=== PATIENT | male | born 1940 | race Caucasian/White ===

== ENCOUNTER 2021-01-29 00:47 | Day surgery (SDC) | payer OTHER, SELFPAY ==
[2021-01-13 15:10] VITALS: BMI 22.8
[2021-01-29] MEDS: LACTATED RINGERS 1,000 ML 150 ML IV CONT (11:04)
[2021-01-29 11:06] VITALS: BP 131/78; PULSE 80; RESP 20; TEMP 36.4; O2SAT 100; BMI 22.8
--- NOTE | 2021-01-29 11:13 | P.PNAN_ITS ---
Anes - Initial Pre Proc Eval Procedure: Operation Date: 01/29/21 11:30 Proposed Procedures p Screening Colonoscopy - Saran Tracey MD Date/Time: 01/29/21 11:13 Surgeon: Saran Tracey MD Pre Op Diagnosis: neoplasm screening Patient Data Age: 80 Gender: M Height: 1.7 m Weight: 66 kg Last Vital Signs Temp 97.5 F L 01/29/21 11:06 Pulse 80 01/29/21 11:06 Resp 20 01/29/21 11:06 BP 131/78 01/29/21 11:06 Pulse Ox 100 01/29/21 11:06 Allergies Allergy/AdvReac Type Severity Reaction Status Date / Time No Known Allergies Allergy Unknown Verified 01/29/21 11:05 Home Medications Medication Instructions Recorded Confirmed Type sennosides 8.6 mg-docusate sodium 1 tab-cap PO BID PRN #60 cap 10/26/20 01/29/21 Rx 50 mg capsule cholecalciferol (vitamin D3) 100 mcg PO BID 01/13/21 01/13/21 History [Vitamin D3] multivit with min-folic acid 2 tablet PO BID 01/13/21 01/13/21 History [Adult One Daily Multivitamin] turmeric 400 mg PO BID 01/13/21 01/13/21 History Patient hx anesthesia problems: none Family hx anesthesia problems: none Results Review: All pre-operative results and documents have been reviewed as part of the pre-operative evaluation. [facility] Past Medical History Medical History Dyslipidemia Hx of malignant neoplasm of prostate Follows with Dr Castro Hx of radiation therapy Prostate cancer Surgical History Surgical History History of right inguinal hernia repair 1948 - x2 Family History Family History Father Family history of coronary artery disease Mother Family history of arthritis Grandparent Family history of coronary artery disease Other Family history of malignant neoplasm of breast in first degree relative Social History Social History Smoking status: Never smoker Second hand tobacco smoke exposure: Yes Alcohol intake: never Substance use: never Substance use type: does not use Living arrangements: alone Gender identity (if verbalized by the patient): Male Sexual Orientation (if Verbalized by the Patient): Straight or Heterosexual Spiritual care concerns: No Anes - Eval Final PreProcedure Day of Procedure 01/29/21 11:13 Patient weight: normal Heart: regular rate and rhythm Lungs: clear to auscultation Airway: Mallampati scale class III (broken front tooth) Neurological: alert and oriented Last oral intake: >/= 8 hours ASA classification: II Emergent: no Anesthetic plan: proceed Anesthesia type and monitoring: general GIVS and standard monitoring Results Review: All pre-operative results and documents have been reviewed as part of the pre-operative evaluation. Informed Consent: The patient's anesthetic plan and its attendant risks and benefits were discussed with the patient/family/POA. Questions were solicited and answers provided to the satisfaction of the patient/family/POA.
--- NOTE | 2021-01-29 12:01 | PM.HPGS ---
History of Present Illness History of Present Illness Consent: Risks, benefits, and alternatives have been discussed and questions answered. Patient agrees to proceed with procedure. Chief complaint: neoplasm screening Narrative: Jerman Bowen is a 80 year old male here for first screening colonoscopy. He has chronic constipation, no new changes. Review of Systems Constitutional: Constitutional: Denies headache(s) and Denies weakness Eyes: Eyes: Denies blurry vision ENT: Reports Normal hearing present, Denies headache(s) and Denies neck pain Cardiovascular: Cardiovascular: Denies chest pain and Denies dyspnea Respiratory: Respiratory: Denies dyspnea Gastrointestinal: Gastrointestinal: Reports no additional gastrointestinal complaints Genitourinary: Genitourinary: Denies dysuria Musculoskeletal: Musculoskeletal: Denies neck pain Integumentary/Breasts: Skin/Breast: Denies dry skin Neurologic: Reports Normal hearing present, Denies headache(s) and Denies weakness Psychiatric: Psychiatric: Denies anxiety Endocrine: Endocrine: Denies change in body appearance Hematologic/Lymphatic: Hematologic/Lymphatic: Denies easy bleeding Allergic/Immunologic: Allergic/Immunologic: Denies urticaria PMFSH Past Medical History Medical History (Updated 01/29/21 @ 12:02 by Saran Tracey MD) Colon cancer screening Dyslipidemia Hx of malignant neoplasm of prostate Follows with Dr Castro Hx of radiation therapy Prostate cancer Surgical History Surgical History History of right inguinal hernia repair 1948 - x2 Family History Family History Father Family history of coronary artery disease Mother Family history of arthritis Grandparent Family history of coronary artery disease Other Family history of malignant neoplasm of breast in first degree relative Social History Social History Smoking status: Never smoker Second hand tobacco smoke exposure: Yes Alcohol intake: never Substance use: never Substance use type: does not use Living arrangements: alone Gender identity (if verbalized by the patient): Male Sexual Orientation (if Verbalized by the Patient): Straight or Heterosexual Spiritual care concerns: No Meds Home Medications and Allergies Home Medications Medication Instructions Recorded Confirmed Type sennosides 8.6 mg-docusate sodium 1 tab-cap PO BID PRN #60 cap 10/26/20 01/29/21 Rx 50 mg capsule cholecalciferol (vitamin D3) 100 mcg PO BID 01/13/21 01/13/21 History [Vitamin D3] multivit with min-folic acid 2 tablet PO BID 01/13/21 01/13/21 History [Adult One Daily Multivitamin] turmeric 400 mg PO BID 01/13/21 01/13/21 History Allergies Allergy/AdvReac Type Severity Reaction Status Date / Time No Known Allergies Allergy Unknown Verified 01/29/21 11:05 Vital Signs Vital Signs - 24 hr 01/29/21 11:06 Temperature 97.5 F L Pulse Rate 80 Respiratory Rate 20 Blood Pressure 131/78 Pulse Oximetry 100 Exam Const: General: comfortable and no acute distress HENMT: General nose exam: Normal nares present Eyes: General: appearance normal, both eyes and all related structures Neck: Neck: no JVD Resp: Auscultation: clear to auscultation bilaterally Cardio: Rate: regular rate Rhythm: regular rhythm GI: Inspection: non-distended GI Palp: Yes Soft to palpation Skin: General skin exam: normal color Neuro: General: gait normal Speech: normal speech Extrem: General: normal to inspection Psych: Mental Status: mental status grossly normal Assessment and Plan Assessment and plan (1) Colon cancer screening: Code(s): Z12.11 - Encounter for screening for malignant neoplasm of colon Status: Acute Assessment and Plan: colonoscopy
[2021-01-29 12:45] VITALS: BP 103/62; PULSE 56; RESP 26; O2SAT 100
[2021-01-29 12:55] VITALS: BP 109/60; PULSE 56; RESP 17; O2SAT 100
[2021-01-29 13:05] VITALS: BP 136/61; PULSE 59; RESP 17; O2SAT 99
== END 2021-01-29 13:27 | disposition home or self-care (01) ==
PROVIDERS: PCP Family Medicine; Visit Provider Internal Medicine Gastroenterology
PROC: 0DJD8ZZ Inspection of Lower Intestinal Tract, Via Natural or Artificial Opening Endoscopic (ICD-10-PCS; CPT 45378; principal; 2021-01-29 11:30)
DX: Z12.11 Encounter for screening for malignant neoplasm of colon (principal); D12.3 Benign neoplasm of transverse colon; K57.30 Diverticulosis of large intestine without perforation or abscess without bleeding; K63.5 Polyp of colon; E78.5 Hyperlipidemia, unspecified; Z85.46 Personal history of malignant neoplasm of prostate; Z92.3 Personal history of irradiation
CPT/HCPCS: 45385; 45381; 88305; J2704; J7120

== ENCOUNTER 2021-10-26 14:25 | Outpatient (CLI) | payer OTHER, SELFPAY ==
[2021-10-26 20:55] LABS: Alanine Aminotransferase 18 U/L (6-50); Albumin Level 4.2 g/dL (3.5-5.1); Alkaline Phosphatase 73 U/L (38-126); Anion Gap 8 mmol/L (8-16); Aspartate Amino Transferase 31 U/L (17-59); Bilirubin,Total 0.6 mg/dL (0.2-1.3); Blood Urea Nitrogen 24 mg/dL (9-20); Calcium 9.5 mg/dL (8.4-10.2); Carbon Dioxide 28 mmol/L (22-30); Chloride 99 mmol/L (98-107); Cholesterol 205 mg/dL (0-200); Estimated Glomerular Filt Rate > 60; Glucose 95 mg/dL (65-110); HDL Direct 57 mg/dL; Potassium 4.5 mmol/L (3.4-5.0); Sodium 135 mmol/L (137-145); Triglycerides 122 mg/dL (<150)
[2021-10-26 21:01] LABS: Basophils Absolute Auto 0.1 K/mm3 (0.0-0.1); Basophils Percent Auto 0.6 % (0.2-1.2); Hemoglobin 13.9 g/dL (14.0-18.0); Immature Granulocyte Absolute 0.02 K/mm3 (0.00-0.031); Immature Granulocyte Percent A 0.2 % (0-0.5); Lymphocytes Absolute Auto 1.65 K/mm3 (0.9-3.2); Lymphocytes Percent Auto 18.4 % (18.3-44.2); Mean Corpuscular HGB Conc 32.3 g/dl (32-36); Mean Corpuscular Hemoglobin 28.8 pg (26-34); Mean Corpuscular Volume 89.2 fl (80-100); Mean Platelet Volume 9.6 fl (7.4-10.4); Monocytes Absolute Auto 0.7 K/mm3 (0.1-0.6); Monocytes Percent Auto 8.2 % (2.6-8.5); Neutrophils Absolute Auto 6.5 K/mm3 (1.3-6.7); Neutrophils Percent Auto 72.6 % (45.5-73.1); Platelet Count Result 270 k/mm3 (150-375); Red Blood Count 4.82 M/mm3 (4.6-6.20)
[2021-10-26 21:15] LABS: Vitamin D 25 Hydroxy 52.9 ng/mL
[2021-10-26 21:28] LABS: Thyroid Stimulating Hormone Reflex 0.923 uIU/mL (0.465-4.68)
[2021-10-26 22:36] LABS: LDL Cholesterol Direct 117 mg/dL
== END 2021-10-26 14:26 | disposition home or self-care (01) ==
LOC: ANHGOSHLAB 14:26
PROVIDERS: PCP Family Medicine; Visit Provider Family Medicine
DX: K59.00 Constipation, unspecified (principal); Z51.81 Encounter for therapeutic drug level monitoring; Z79.899 Other long term (current) drug therapy; E55.9 Vitamin D deficiency, unspecified; E53.8 Deficiency of other specified B group vitamins; Z00.00 Encounter for general adult medical examination without abnormal findings; E78.5 Hyperlipidemia, unspecified
CPT/HCPCS: 36415; 80053; 80061; 82306; 82607; 84443; 85025

== ENCOUNTER 2022-10-27 10:37 | Outpatient (CLI) | payer OTHER, SELFPAY ==
[2022-10-27 11:34] LABS: Uric Acid 3.4 mg/dL (3.5-8.5)
== END 2022-10-27 10:38 | disposition home or self-care (01) ==
PROVIDERS: PCP Family Medicine; Visit Provider Nurse Practitioner Family
DX: M10.9 Gout, unspecified (principal)
CPT/HCPCS: 36415; 84550

== ENCOUNTER 2022-11-03 11:45 | Outpatient (CLI) | payer OTHER, SELFPAY ==
[2022-11-03 17:10] LABS: Alanine Aminotransferase 20 U/L (6-50); Albumin Level 3.9 g/dL (3.5-5.1); Alkaline Phosphatase 61 U/L (38-126); Anion Gap 4 mmol/L (8-16); Aspartate Amino Transferase 29 U/L (17-59); Bilirubin,Total 1.7 mg/dL (0.2-1.3); Blood Urea Nitrogen 25 mg/dL (9-20); Calcium 8.9 mg/dL (8.4-10.2); Carbon Dioxide 29 mmol/L (22-30); Chloride 101 mmol/L (98-107); Cholesterol 177 mg/dL (0-200); Estimated Glomerular Filt Rate > 60; Glucose 106 mg/dL (65-110); HDL Direct 65 mg/dL; Potassium 4.3 mmol/L (3.4-5.0); Sodium 134 mmol/L (137-145); Triglycerides 101 mg/dL (<150); Uric Acid 3.3 mg/dL (3.5-8.5)
[2022-11-03 17:27] LABS: LDL Cholesterol Direct 82 mg/dL
[2022-11-03 17:40] LABS: Basophils Percent Auto 0.3 % (0.2-1.2); Hematocrit 41.6 % (42.0-52.0); Hemoglobin 13.5 g/dL (14.0-18.0); Immature Granulocyte Absolute 0.03 K/mm3 (0.00-0.031); Immature Granulocyte Percent A 0.2 % (0-0.5); Lymphocytes Absolute Auto 1.44 K/mm3 (0.9-3.2); Lymphocytes Percent Auto 11.4 % (18.3-44.2); Mean Corpuscular HGB Conc 32.5 g/dl (32-36); Mean Corpuscular Hemoglobin 29.1 pg (26-34); Mean Corpuscular Volume 89.7 fl (80-100); Mean Platelet Volume 9.9 fl (7.4-10.4); Monocytes Percent Auto 7.6 % (2.6-8.5); Neutrophils Absolute Auto 10.2 K/mm3 (1.3-6.7); Neutrophils Percent Auto 80.5 % (45.5-73.1); Platelet Count Result 245 k/mm3 (150-375); Red Blood Count 4.64 M/mm3 (4.6-6.20); Red Cell Distribution Width 13.7 % (11.5-14.5); White Blood Count 12.7 K/mm3 (4.5-10.0)
[2022-11-06 06:18] LABS: PSA, Free 0.17 ng/mL; PSA, Total 0.6 ng/mL (<=4.0)
[2022-11-07 11:47] LABS: Vitamin D 1,25 (OH)2 Total 28 pg/mL (18-72); Vitamin D2 1,25 (OH)2 <8 pg/mL; Vitamin D3 1,25 (OH)2 28 pg/mL
== END 2022-11-03 11:46 | disposition home or self-care (01) ==
PROVIDERS: PCP Family Medicine; Visit Provider Nurse Practitioner Family
DX: E55.9 Vitamin D deficiency, unspecified (principal); Z12.5 Encounter for screening for malignant neoplasm of prostate; I10 Essential (primary) hypertension; M10.9 Gout, unspecified
CPT/HCPCS: 36415; 80053; 80061; 82652; 84153; 84154; 84550; 85025; G0103

== ENCOUNTER 2023-01-13 10:42 | Outpatient (CLI) | payer OTHER, SELFPAY ==
[2023-01-13 12:03] LABS: Strep Group A RT-PCR NOT DETECTED (Negative)
[2023-01-13 12:15] LABS: Influenza A QL RT-PCR Negative (Negative); Influenza B QL RT-PCR Negative (Negative); RSV RNA, RT-PCR Negative (Negative); SARS-CoV-2 RNA PCR Positive (Negative)
== END 2023-01-13 10:43 | disposition home or self-care (01) ==
PROVIDERS: PCP Family Medicine; Visit Provider Family Medicine
DX: J06.9 Acute upper respiratory infection, unspecified (principal); Z20.822 Contact with and (suspected) exposure to COVID-19
CPT/HCPCS: 87637; 87651

== ENCOUNTER 2023-05-30 09:40 | Outpatient (CLI) | payer OTHER, SELFPAY ==
[2023-05-30 13:51] LABS: Appearance Urine Cloudy (Clear); Bacteria Urine None Seen /hpf; Bilirubin Urine Negative (Negative); Blood Urine Negative (Negative); Color Urine Yellow (Yellow); Glucose Urine UA Negative (Negative); Ketones Urine Negative (Negative); Leukocyte Esterase Ur Negative LEU/UL (Negative); Nitrate Urine Negative (Negative); Protein Urine Negative (Negative); RBC Urine 0-2 /hpf (0-2); Specific Grav Ur 1.014 (1.001-1.035); Squamous Epithelial Cell Urine None Seen /hpf (Few); Urobilinogen Urine 0.2 mg/dL (<2.0); WBC Urine 0-5 /hpf (0-3)
[2023-05-30 14:01] LABS: Add Urine Microscopic? YES
== END 2023-05-30 09:41 | disposition home or self-care (01) ==
PROVIDERS: PCP Family Medicine; Visit Provider Nurse Practitioner
DX: R35.0 Frequency of micturition (principal)
CPT/HCPCS: 81001

== ENCOUNTER 2023-09-04 12:18 | Emergency (ER) | payer OTHER, SELFPAY ==
--- NOTE | ~2023-09-04 | XR_ITS ---
EXAMINATION: XR cervical spine 4-5V DATE: 09/04/2023 13:13 INDICATION: Neck pain. TECHNIQUE: 4 views of cervical spine were obtained. COMPARISON: None. FINDINGS: There is 2 mm anterolisthesis of C6 on C7. Vertebral body heights are normal. There is kehinde rely decreased disc height at C5-C6. There is multilevel facet joint osteoarthritis, severe on the le ft at C4-C5 and severe in lower cervical spine. There is mild central canal stenosis at C5-C6. No pre vertebral soft tissue swelling. IMPRESSION: 1. Severe cervical spondylosis. Reviewed, dictated and finalized at location A.
[2023-09-04 12:20] VITALS: BP 137/60; PULSE 77; RESP 19; TEMP 37.1; O2SAT 100
--- NOTE | 2023-09-04 12:46 | ED.GENADULT ---
HPI - General Adult General Chief complaint: Neck Pain/Injury Stated complaint: NECK PAIN Source: patient, RN notes reviewed and old records reviewed Mode of arrival: ambulatory Limitations: no limitations History of Present Illness HPI narrative: Patient presents today accompanied by his daughter. Patient reports that he is having some generalized neck pain that is only present with range of motion for approximately 2 weeks. Daughter endorses this complaint. Denies any injury or trauma. Denies any fever, chills, sweats. Denies any sore throat. Denies other complaints at this time. Related Data Home Medications Medication Instructions Recorded Confirmed No Home Medications 09/04/23 09/04/23 Allergies Allergy/AdvReac Type Severity Reaction Status Date / Time No Known Allergies Allergy Unknown Verified 09/04/23 12:23 Review of Systems Review of Systems: All systems reviewed & are unremarkable except as noted in HPI and below Constitutional: Constitutional: Reports no additional constitutional complaints ENT: Reports system reviewed and no additional complaints, except as documented Cardiovascular: Cardiovascular: Reports no additional cardiovascular complaints Respiratory: Respiratory: Reports no additional respiratory complaints Gastrointestinal: Gastrointestinal: Reports no additional gastrointestinal complaints PMFSH Past Medical History Medical History 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 Dyslipidemia Gout of big toe Hearing loss Hx of malignant neoplasm of prostate Follows with Dr Castro Hx of radiation therapy Prostate cancer Memory loss Oral thrush Vocal cord dysfunction Surgical History Surgical History History of loop recorder History of right inguinal hernia repair 1948 - x2 Family History Family History Father Family history of coronary artery disease Mother Family history of arthritis Grandparent Family history of coronary artery disease Other Family history of malignant neoplasm of breast in first degree relative Social History Social History Social History: Caffeine-none Smoking status: Never smoker Second hand tobacco smoke exposure: Yes Alcohol intake: never Substance use: never Substance use type: does not use Lack of Transportation: No Lack of Food: Never True Current Housing: I Have Housing Concerned About Future Housing: No Difficulty Paying Gas/Electric Bills: No Difficulty Paying for Meds: No Currently Unemployed: No Education: Bachelor's Degree Difficulty w/ Childcare or Family Care: No Living arrangements: alone Occupation/Education: retired Gender identity (if verbalized by the patient): Male Sexual Orientation (if Verbalized by the Patient): Straight or Heterosexual Spiritual care concerns: No Comments At the time of my signature, I reviewed and agree with the nursing past medical, surgical, social, and family history. There is no relevant family history pertinent to the patient complaint. Exam Const: General: cooperative, no acute distress, alert and awake Orientation/consciousness: oriented to person, oriented to place and oriented to time HENMT: Head: normal to inspection Neck: Neck: no lymphadenopathy, no meningeal signs, no lymphadenopathy noted and other (Significant kyphosis noted) Resp: Effort & Inspection: normal respiratory effort and able to speak in complete sentences Auscultation: clear to auscultation bilaterally, no crackles, no rales, no rhonchi and no wheezes Cardio: Palpation: normal PMI Rate: regular rate Rhythm: regular rhythm Heart sounds: S1 normal heart sound present and S2 normal heart sound present Back/Spine/Pelvis: Cervical Spine: No normal cervical lordosis, cervi
== END 2023-09-04 13:31 | disposition home or self-care (01) ==
PROVIDERS: Emergency Provider Nurse Practitioner Family; PCP Family Medicine
DX: M47.812 Spondylosis without myelopathy or radiculopathy, cervical region (principal); E78.5 Hyperlipidemia, unspecified; M10.9 Gout, unspecified; Z85.46 Personal history of malignant neoplasm of prostate; Z92.3 Personal history of irradiation
CPT/HCPCS: 72050; 99213; G0463

== ENCOUNTER 2023-09-30 13:32 | Emergency (ER) | payer OTHER, SELFPAY ==
[2023-09-30 13:34] VITALS: BP 149/59; PULSE 73; RESP 20; TEMP 36.6; O2SAT 98
--- NOTE | 2023-09-30 14:57 | ED.ABDPAIN ---
HPI - Abdominal Pain General Chief Complaint: Abdominal Pain Stated Complaint: constipation and abd pain Time Seen by Provider: 09/30/23 14:46 Source: patient and family (daughter) Mode of arrival: ambulatory History of Present Illness HPI narrative: Patient presents with concern abdominal pain and constipation. He states his last bowel movement was 3 days ago. His primary care physician Dr. Hills prescribed Senokot which he has been taking but has not produced bowel movement. No prior abdominal surgery. His last colonoscopy was 1-2 years ago. He denies any opiate use. In fact he takes medications at baseline. He does drink morning protein shake. He denies any fever. No nausea or vomiting. He notes that he had lot of sensation in urgency to have a bowel that was producing anyone. However, while in the ED waiting room, he had the sensation to go and went to the bathroom and had a bowel movement. Has a photo as evidence. At the time of examination, currently all symptoms have resolved. He has no abdominal pain and is feeling extremely better. Related Data Home Medications Medication Instructions Recorded Confirmed sennosides 8.6 mg tablet (Senokot) 8.6 mg PO DAILY 09/15/23 09/15/23 Allergies Allergy/AdvReac Type Severity Reaction Status Date / Time No Known Allergies Allergy Unknown Verified 09/30/23 13:33 [facility] Past Medical History Medical History Abnormal gait 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 Dyslipidemia Gout of big toe Hearing loss Hx of malignant neoplasm of prostate Follows with Dr Castro Hx of radiation therapy Prostate cancer Memory loss Oral thrush Vocal cord dysfunction Surgical History Surgical History (Updated 10/01/23 @ 15:33 by Melisa Sosa MD) History of colonoscopy last performed 2021 or 2022 History of loop recorder History of right inguinal hernia repair 1948 - x2 Family History Family History Father Family history of coronary artery disease Mother Family history of arthritis Grandparent Family history of coronary artery disease Other Family history of malignant neoplasm of breast in first degree relative Social History Social History (Updated 10/01/23 @ 15:33 by Melisa Sosa MD) Social History: Caffeine-none Has a daughter Smoking status: Never smoker Second hand tobacco smoke exposure: Yes Alcohol intake: never Substance use: never Substance use type: does not use Lack of Transportation: No Lack of Food: Never True Current Housing: I Have Housing Concerned About Future Housing: No Difficulty Paying Gas/Electric Bills: No Difficulty Paying for Meds: No Currently Unemployed: No Education: Bachelor's Degree Difficulty w/ Childcare or Family Care: No Living arrangements: alone Occupation/Education: retired Gender identity (if verbalized by the patient): Male Sexual Orientation (if Verbalized by the Patient): Straight or Heterosexual Spiritual care concerns: No Exam Narrative: GENERAL: Well-appearing, well-nourished, and in no acute distress. HEAD: Normocephalic, atraumatic. EYES: Non injected, non icteric ENT: Nares clear, no rhinorrhea or epistaxis. NECK: Supple. CHEST: Speaking in full sentences. No respiratory distress. HEART: Regular rate and rhythm. . ABDOMEN: Soft, nondistended. Nontender to palpation throughout. No rigidity or guarding. EXTREMITIES: Normal range of motion. No edema. SKIN: Warm, dry, no rash. NEURO: No focal deficits. Alert and oriented x3. PSYCH: Normal mood and affect. Course Vital Signs Vital signs: Vital Signs Temperature 97.8 F 09/30/23 13:34 Pulse Rate 73 09/30/23 13:34 Respiratory Rate 20 09/30/23 13:34 Blood Pressure 149/59 H 09/30/23 13:34 Pulse Oximetry 98 09/30/23 13:34 Oxygen Delivery Room Air 09/30/23 13:34 [place]
== END 2023-09-30 15:41 | disposition home or self-care (01) ==
PROVIDERS: Emergency Provider Student in an Organized Health Care Education/Training Program; PCP Family Medicine
DX: K59.00 Constipation, unspecified (principal); E78.5 Hyperlipidemia, unspecified; M10.9 Gout, unspecified; Z85.46 Personal history of malignant neoplasm of prostate; Z92.3 Personal history of irradiation
CPT/HCPCS: 99283

== ENCOUNTER 2023-10-09 14:17 | Outpatient (CLI) | payer OTHER, SELFPAY ==
[2023-10-09 18:50] LABS: Basophils Percent Auto 0.7 % (0.2-1.2); Eosinophils Absolute Auto 0.2 K/mm3 (0-0.3); Hemoglobin 12.8 g/dL (14.0-18.0); Immature Granulocyte Absolute 0.02 K/mm3 (0.00-0.031); Immature Granulocyte Percent A 0.3 % (0-0.5); Lymphocytes Absolute Auto 1.14 K/mm3 (0.9-3.2); Lymphocytes Percent Auto 18.7 % (18.3-44.2); Mean Corpuscular Hemoglobin 28.3 pg (26-34); Mean Corpuscular Volume 88.5 fl (80-100); Mean Platelet Volume 9.4 fl (7.4-10.4); Monocytes Absolute Auto 0.6 K/mm3 (0.1-0.6); Neutrophils Absolute Auto 4.2 K/mm3 (1.3-6.7); Neutrophils Percent Auto 68.3 % (45.5-73.1); Platelet Count Result 265 k/mm3 (150-375); Red Blood Count 4.52 M/mm3 (4.6-6.20); Red Cell Distribution Width 13.4 % (11.5-14.5); White Blood Count 6.1 K/mm3 (4.5-10.0)
[2023-10-09 19:22] LABS: Alanine Aminotransferase 13 U/L (6-50); Alkaline Phosphatase 67 U/L (38-126); Anion Gap 7 mmol/L (4-12); Aspartate Amino Transferase 27 U/L (17-59); Bilirubin,Total 0.5 mg/dL (0.2-1.3); Blood Urea Nitrogen 33 mg/dL (9-20); Calcium 9.5 mg/dL (8.4-10.2); Carbon Dioxide 31 mmol/L (22-30); Chloride 98 mmol/L (98-107); Cholesterol 173 mg/dL (0-200); Estimated Glomerular Filt Rate > 60; Glucose 104 mg/dL (65-110); HDL Direct 56 mg/dL; Potassium 4.4 mmol/L (3.4-5.0); Sodium 136 mmol/L (137-145); Triglycerides 98 mg/dL (<150)
[2023-10-09 19:33] LABS: LDL Cholesterol Direct 83 mg/dL
[2023-10-09 19:48] LABS: Hemoglobin A1C 5.9 % (<5.7)
[2023-10-09 19:51] LABS: Prostate Specific Antigen 1.2 ng/mL (< OR = 4.0)
[2023-10-09 21:04] LABS: Thyroid Stimulating Hormone Reflex 0.837 uIU/mL (0.465-4.68)
[2023-10-12 12:18] LABS: Vitamin D 1,25 (OH)2 Total 51 pg/mL (18-72); Vitamin D2 1,25 (OH)2 <8 pg/mL; Vitamin D3 1,25 (OH)2 51 pg/mL
== END 2023-10-09 14:18 | disposition home or self-care (01) ==
PROVIDERS: PCP Family Medicine; Visit Provider Nurse Practitioner Family
DX: Z12.5 Encounter for screening for malignant neoplasm of prostate (principal); B37.0 Candidal stomatitis; E78.5 Hyperlipidemia, unspecified; M10.9 Gout, unspecified; R26.9 Unspecified abnormalities of gait and mobility; R41.3 Other amnesia; E03.9 Hypothyroidism, unspecified; E53.8 Deficiency of other specified B group vitamins; R73.03 Prediabetes; E55.9 Vitamin D deficiency, unspecified; Z85.46 Personal history of malignant neoplasm of prostate
CPT/HCPCS: 36415; 80053; 80061; 82607; 82652; 83036; 84153; 84443; 85025; G0103

== ENCOUNTER 2023-10-13 14:34 | Outpatient (CLI) | payer OTHER, SELFPAY ==
--- NOTE | ~2023-10-13 | MR_ITS ---
EXAMINATION: MR brain/brain stem wo con DATE: 10/13/2023 15:36 INDICATION: Other amnesia. TECHNIQUE: Magnetic resonance imaging (MRI) of the brain and brainstem was performed without intraven ous contrast. COMPARISON: None. FINDINGS: There are scattered areas of nonspecific increased T2-weighted signal intensity in the cere bral white matter, which is within normal limits for the patient's age. There is no intracranial hemo rrhage, acute infarction, or abnormal intracranial mass lesion. The ventricles are normal in size. Th ere is mild mucosal thickening in the paranasal sinuses. The orbits are normal. The mastoid air cells are normal. IMPRESSION: 1. Normal aging brain. Reviewed, dictated and finalized at location A. IMPRESSION: 1. Normal aging brain.
== END 2023-10-13 14:35 ==
LOC: GOSHIMG 14:36
PROVIDERS: PCP Family Medicine; Visit Provider Nurse Practitioner Family
DX: R41.3 Other amnesia (principal)
CPT/HCPCS: 70551

== ENCOUNTER 2023-11-06 11:01 | Outpatient (CLI) | payer OTHER, SELFPAY | END 2023-11-06 11:02 | disposition home or self-care (01) | LOC: ANHAUDASC 11:02 | PROVIDERS: PCP Family Medicine; Visit Provider Otolaryngology | DX: H90.6 Mixed conductive and sensorineural hearing loss, bilateral (principal); H93.11 Tinnitus, right ear; R49.0 Dysphonia | CPT/HCPCS: 92557; 92567 ==

== ENCOUNTER 2024-06-13 14:32 | Inpatient (IN) | payer OTHER, SELFPAY ==
[2024-06-13] VITALS (10 sets, daily range): BP systolic 119–152; BP diastolic 48–89; PULSE 65–77; RESP 15–21; TEMP 36.3–36.8; O2SAT 97–100
--- NOTE | ~2024-06-13 | XR_ITS ---
MODIFIED ESOPHAGRAM HISTORY: Dysphagia. TECHNIQUE: Modified barium esophagram was performed on 06/17/2024. I administered fluoroscopy and perfo rmed the exam with speech pathologist. Patient was seated for lateral fluoroscopic imaging for inges tion of thin liquids, pudding, solids and quantified amounts, followed by thin liquids in uncontrolle d amounts. This was recorded on tape. A single fluoroscopic spot image was also recorded. The DAP for this procedure was 0.517 Gycm2. The amount of fluoroscopy time used during this procedure was 1.0 mi nutes. FINDINGS: Oral stage: Adequate function. Pharyngeal stage: There is reduced laryngeal elevation and adduction. Reduced tongue base retraction and pharyngeal squeeze. There is both vallecular and piriform sinus residue. There was laryngeal pene tration with silent aspiration. Cervical/esophageal stage: Adequate function. IMPRESSION: Pharyngeal dysphagia with laryngeal penetration and silent aspiration. Please correlate with speech pathologist findings and specific feeding recommendations. Reviewed, dictated and finalized at location A. IMPRESSION: Pharyngeal dysphagia with laryngeal penetration and silent aspirati on. Please correlate with speech pathologist findings and specific feeding rec ommendations.
--- NOTE | ~2024-06-13 | CT_ITS ---
EXAMINATION: CT cervical spine wo con DATE: 06/13/2024 15:23 INDICATION: trauma TECHNIQUE: Computed tomography (CT) of the cervical spine was performed without intravenous contrast. Automated exposure control and iterative reconstruction technique were employed. The dose-length pro duct was 131.10 mGy-cm. COMPARISON: None. FINDINGS: Vertebral Body Alignment: Trace multilevel listheses, presumed on a degenerative basis. Craniocervical and atlantoaxial alignment: Mild degenerative change. Alignment intact. Osseous structures/fracture: No evidence of a lytic or blastic process in the visualized spine. No e vidence of acute fracture. Multilevel facet fusions. Cervical soft tissues: The paraspinal soft tissues planes are maintained. Calcified right apical gran uloma. Multiple thyroid hypodensities measuring up to 2.1 cm Degenerative changes: Degenerative disc disease and facet arthropathy. Severe left C5-6 neural forami nal narrowing, secondary to degenerative changes. Moderate central canal narrowing at C5-6, secondary to degenerative changes. No severe central canal narrowing. IMPRESSION: No acute fracture or traumatic malalignment in the cervical spine. Multiple thyroid nodules, consider nonemergent, outpatient thyroid ultrasound for further characterization. Reviewed, dictated and finalized at location K. IMPRESSION: No acute fracture or traumatic malalignment in the cervical spine. Multiple thy roid nodules, consider nonemergent, outpatient thyroid ultrasound for further c haracterization.
--- NOTE | ~2024-06-13 | US_ITS ---
EXAMINATION: US thyroid DATE: 06/16/2024 09:40 INDICATION: Thyroid nodules TECHNIQUE: Multiple ultrasound images of the thyroid were obtained. COMPARISON: None. FINDINGS: The right thyroid lobe measures 4.2 x 2.1 x 3.6 cm. The left thyroid lobe measures 3.8 x 2.2 x 1.8 c m. There are few bilateral thyroid nodules. These include a 2.3, solid heterogeneous hypoechoic wide r than tall nodule with smooth margins and without echogenic foci at the inferior right thyroid (TI-R ADS 4, moderately suspicious , FNA if >=1.5 cm, annual followup is >=1 cm). 2.4 cm solid wider than t all heterogeneously iso to hypoechoic nodule with smooth to ill-defined margins and with coarse shado wing calcifications, also TI-RADS 4. 2.0 cm solid wider than tall hypoechoic nodule in the left thyro id lobe with smooth margins and a couple punctate echogenic foci (TI-RADS 5, highly suspicious , FNA if >=1.0 cm, annual followup is >0.5 cm). 1 cm solid wider than tall isoechoic nodule with smooth mar gins and without echogenic foci. (TI-RADS 3, mildly suspicious , FNA if >=2.5 cm, annual followup is >=1.5 cm). IMPRESSION: 1. Multinodular goiter including a 2.0 cm Ti RADS 5 left thyroid nodule and a 2.4 cm TI-RADS 4 right thyroid nodule. These would meet criteria for ultrasound guided biopsy although need for biopsy alth ough given patient age, need for biopsy may depend on clinical considerations. Reviewed, dictated and finalized at location A. IMPRESSION: 1. Multinodular goiter including a 2.0 cm Ti RADS 5 left thyroid nodule and a 2 .4 cm TI-RADS 4 right thyroid nodule. These would meet criteria for ultrasound guided biopsy although need for biopsy although given patient age, need for bi opsy may depend on clinical considerations.
--- NOTE | ~2024-06-13 | XR_ITS ---
EXAM: XR elbow LT min 3V DATE: 06/13/2024 15:37 HISTORY: trauma . COMPARISON: None available. FINDINGS: Normal mineralization. No fracture or dislocation. No lytic or blastic lesion. Mild degene rative change. Olecranon, medial, and lateral enthesopathy. No erosion or periosteal change. Large el bow joint effusion. IMPRESSION: Large elbow joint effusion, as can be seen with occult radial head fracture. Reviewed, dictated and finalized at location K.
--- NOTE | ~2024-06-13 | XR_ITS ---
HISTORY: trauma COMPARISON: 02/17/2014 TECHNIQUE: 3 views of the right shoulder were formed FINDINGS: No acute fracture. Significant progression in the degenerative disease seen more than 10 years earlier within the acromi oclavicular joint space and coracoclavicular space, with extensive osteophyte formation. The glenohumeral joint space is maintained The visualized portion of the adjacent right lung is clear. The humeral head is well seated within the glenoid fossa. IMPRESSION: Significant degenerative disease, without acute fracture or anterior dislocation. Reviewed, dictated and finalized at location A. IMPRESSION: Significant degenerative disease, without acute fracture or anterior dislocatio n.
--- NOTE | ~2024-06-13 | XR_ITS ---
EXAMINATION: XR chest 2V Exam Date/Time: 06/13/2024 15:26 CDT HISTORY: AMS Comparison: None. RESULT: Lines, tubes, and devices: None. Lungs and pleura: Emphysematous/senescent change. Subsegmental patchy groundglass and reticulonodula r opacities in the right lower lung. Minimal right posterior costophrenic angle blunting. Cardiomediastinal silhouette: Stable. Other: No acute osseous or upper abdominal finding. IMPRESSION: Right lower lung opacities may represent infection/aspiration. Trace left pleural fluid collection ve rsus chronic pleural blunting Reviewed, dictated and finalized at location K. IMPRESSION: Right lower lung opacities may represent infection/aspiration. Trace left pleur al fluid collection versus chronic pleural blunting
--- NOTE | ~2024-06-13 | CT_ITS ---
EXAMINATION: CT brain wo con DATE: 06/13/2024 15:23 INDICATION: trauma . TECHNIQUE: Computed tomography (CT) of the head was performed without intravenous contrast. The mA wa s adjusted according to patient size. Iterative reconstruction technique was employed. The dose-lengt h product was 605.33 mGy-cm. COMPARISON: MRI brain 10/13/2023. FINDINGS: No acute intracranial hemorrhage or extra-axial fluid collection. No hydrocephalus, mass, or herniation. No acute ischemic infarct. Unremarkable dural venous sinus attenuation. No acute osseous abnormality. The aerated spaces are clear. Mild atrophy and chronic white matter change. Atherosclerotic intracranial calcification. IMPRESSION: No acute intracranial process. Reviewed, dictated and finalized at location K.
--- OUTSIDE RECORDS SUMMARY | 2024-06-13 15:02 | XMS_ITS | Referral Summary ---
Author Organization [facility] Address [facility] [place] [address] Care Team Providers Care Artificial Limb Maker Name Role Phone Phyllis Horner MD Primary Care Provider Encounters Date Type Department Care Team Description 06/12/2024 1:45 PM CDT Office Visit [facility] Cardiology [address] [place] [address] Josafat Pagan MD Weight loss (Primary Dx); Mixed hyperlipidemia; Dizziness; Syncope and collapse from Last 3 Months Allergies No known active allergies Medications guaiFENesin ER (MUCINEX) 600 mg 12 hr tablet Take 2 tablets (1,200 mg total) by mouth 2 (two) times a day Active bisacodyl EC (DULCOLAX EC) 5 mg EC tabletIndicatio ns:constipation Take 1 tablet (5 mg total) by mouth daily as needed for constipation Active Active Problems Problem Noted Date Diagnosed Date Weight loss 06/12/2024 Dizziness 09/17/2020 Hyperlipidemia 11/10/2016 Status post placement of implantable loop record er 10/28/2016 Overview (10/28/2016): [employer] Reveal Loop Recorder Dx; Syncope. DOI 03/20/2014. [employer] remote home monitoring Q35-45 days. 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 Gender Identity Not on file Sexual Orientation Not on file Last Filed Vital Signs Vital Sign Reading Time Taken Comments Blood Pressure 90/46 06/12/2024 1:36 PM CDT Pulse 76 06/12/2024 1:36 PM CDT Temperature - - Respiratory Rate - - Oxygen Saturation 94% 06/12/2024 1:36 PM CDT Inhaled Oxygen Concentration - - Weight 49 kg (108 lb) 06/12/2024 1:36 PM CDT Height 170.2 cm (5' 7 ) 06/12/2024 1:36 PM CDT Body Mass Index 16.92 06/12/2024 1:36 PM CDT Plan of Treatment Not on file Insurance [employer] PPO [employer] [facility] Care Teams Artificial Limb Maker Relationship Specialty Start Date End Date Phyllis Horner MD PCP - General Family Practice 08/11/20
--- OUTSIDE RECORDS SUMMARY | 2024-06-13 15:02 | XMS_ITS | Encounter Summary ---
Author Organization [facility] Address [address] [facility] [facility] [address] [place] [id number] Care Team Providers Care Grease Man Name Role Phone Yessica Saenz MD Primary Care Provider [phone] Rajinder Nicholson MD Primary Care Provider [phone]- [phone] Nova Brumfield MD Primary Care Provider Phyllis Horner MD Primary Care Provider Encounter Details Date Type Department Care Team (Late st Contact Info) Description 07/04/2016 Orders Only [facility] ProviderCarmela MD [address] [place] [id number] Social History Tobacco Use Types Packs/Day Years Used Date Smoking Tobacco: Never Alcohol Use Standard Drinks/Week Comments No 0 (1 standard drink = 0.6 oz pur e alcohol) Sex and Gender Information Value Date Recorded Sex Assigned at Not on file 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 Historical Provider [facility] JENNIFER HOLMAN Final Result documented in this encounter Visit Diagnoses Not on filedocumented in this encounter Care Teams Grease Man Relationship Specialty Start Date End Date Yessica Saenz MD PCP - General 06/10/16 11/09/16 Rajinder Nicholson MD [address] [place] [address] PCP - General Family Practice 11/10/16 12/24/18 Nova Brumfield MD [address] [place] [address] PCP - General Family Medicine 12/25/18 08/10/20 Phyllis Horner MD [address] [place] [address] PCP - General Family Practice 08/11/20 documented as of this encounter
--- OUTSIDE RECORDS SUMMARY | 2024-06-13 15:02 | XMS_ITS | Encounter Summary ---
Author Organization [facility] Healthcare Address [address] [place] [address] Care Team Providers Care Supervisor [employer] Name Role Phone Phyllis Horner MD Primary Care Provider Reason for Referral * Cardiology (Routine) - Pending Review Specialty Diagnoses / Procedures Referred By Contac t Referred To Contact Diagnoses Weight loss Dizziness Syncope and collapse Procedures Transthoracic Echo (TTE) Complete W Doppler/CF Josafat Pagan MD [address] [place] [address] Phone: tel: fax: [facility] Cardiology [address] [place] [address] Phone: tel: fax: Referral ID Status Reason Start Date Expiration Date V isits Requested Visits Authorized [id number] Pending Review 06/12/2024 07/12/2025 1 1 Reason for Visit * Reason Comments Syncope Dizziness Hyperlipidemia Annual f/u Encounter Details Date Type Department Care Team (Late st Contact Info) Description 06/12/2024 1:45 PM CDT Office Visit 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 male who is an established patient of Dr. Pagan here for annual follow-up of his syncope and implanted loop recorder. History of Present Illness: Jerman oBwen is a 76 y.o. male with male who I saw for syncope. He was climbing a ladder and passed out. He did fall and break 6 ribs. Cardiac workup was not performed. In 2013 he was walking hisdog and also blacked out. He fell on his right shoulder and shoulder. He stated that eachtime he was unconscious for about 4-5 seconds. There was no prodrome and he immediately awoke and was alert. Extensive cardiac workup has been unremarkable to this point. Echocardiogram was unremarkable stop.Stress test was normal. Carotids were normal. Implantable loop recorder was placed and he has not had any significant arrhythmia. 11/10/2016: He returns today for follow-up. He is having some issues with sleeping and has some fatigue. His blood pressure did spike coronary at company in the house but otherwise from a cardiac perspective is feeling good and denies any syncope spells. No paroxysmal nocturnal dyspnea, chest pain,shortness of breath, palpitations, edema. 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 He has no specific complaints or concerns. He denies any further episodes of syncope. There have been no significant changes in his health overthe last year. He has not marked any symptoms on his ILR. Follow-up note 09/17/2020: He denies any chest pain, shortness breath, syncope, paroxysmal nocturnal dyspnea, orthopnea, edema or palpitations. He has rare dizzy episodes which did not last very longand have not resulted in any syncope Follow-up note 06/12/2024: He has had some dizziness and passing out spells. He does not eat or drink very much at all according to family member who is with him today. She states that he simply willnot eat. He has no chest pain, shortness breath, paroxysmal nocturnal dyspnea, orthopnea, edema or p alpitations. Records that I personally reviewed on the day of this visit include: (the interpretation is outlined in the chief complaint above) 11/10/[address] Pagan and 07/31/2017 device check report I have also reviewed: allergies, current medications, past family history, past medical history, past social history, past surgical history and problem list Review of Systems Constitutional: Positive for weight loss. Negative for diaphoresis, fever, malaise/fatigue and weight gain. HENT: Negative for hearing loss. Eyes: Negative for visual disturbance. Cardiovascular: Negative for chest pain, claudication, dyspnea on exertion, leg swelling, orthopnea, palpitations, paroxysmal nocturnal dyspnea and syncope. Respiratory: Negative for cough, hemoptysis, shortness of breath, snoring and wheezing. Endocrine: Negative for polyphagia. Hematologic/Lymphatic: Does not bruise/bleed easily. Skin: Negative for poor wound healing and rash. No easy bruising. No bleeding problems. Musculoskeletal: Negative for joint pain and myalgias. Gastrointestinal: Negative for heartburn, nausea and vomiting. No reflux Genitourinary: Negative for hematuria. Neurological: Positive for dizziness. Negative for headaches and light-headedness. Psychiatric/Behavioral: Negative for depression. The patient is not nervous/anxious. Vital Signs: BP 90/46 (BP Location: Left arm, Patient Position: Sitting) Pulse 76 Ht 170.2 cm (5' 7 ) Wt 49 kg (108 lb) SpO2 94% BMI 16.92 kg/m?? Physical Exam Vitals reviewed. Constitutional: General: He is not in acute distress. Appearance: He is well-developed. Comments: Emaciated and cachectic appearing HENT: Head: Normocephalic and atraumatic. Nose: Nose normal. Eyes: General: No scleral icterus. Conjunctiva/sclera: Conjunctivae normal. Neck: Vascular: No carotid bruit or JVD. Trachea: No tracheal deviation. Cardiovascular: Rate and Rhythm: Normal rate and regular rhythm. Pulses: Radial pulses are 2+ on the right side and 2+ on the left side. Dorsalis pedis pulses are 1+ on the right side and 1+ on the left side. Heart sounds: Normal heart sounds. No murmur heard. Pulmonary: Effort: Pulmonary effort is normal. No respiratory distress. Breath sounds: Normal breath sounds. Abdominal: General: Bowel sounds are normal. Palpations: Abdomen is soft. Tenderness: There is no abdominal tenderness. Musculoskeletal: General: Normal range of motion. Cervical back: Normal range of motion. Skin: General: Skin is warm and dry. Neurological: Mental Status: He is alert and oriented to person, place, and time. Psychiatric: Mood and Affect: Mood normal. No Known Allergies Current Outpatient Medications: bisacodyl EC (DULCOLAX EC) 5 mg EC tablet, Take 1 tablet (5 mg total) by mouth daily as needed for constipation, Disp: , Rfl: guaiFENesin ER (MUCINEX) 600 mg 12 hr tablet, Take 2 tablets (1,200 mg total) by mouth 2 (two) times a day, Disp: , Rfl: Assessment: Diagnoses and all orders for this visit: Syncope, unspecified syncope type No recurrence Hyperlipidemia, unspecified hyperlipidemia type Dizziness Mildly symptomatic Status post placement of implantable loop recorder History of malignant neoplasm of prostate Status post XRT Weight loss Significant and worrisome Plan/Recommendations: 2D echocardiogram with Doppler because of his recurrent syncope and dizziness. Patient has lost almost 30 lb since last time that I have seen him. He is not eating and not drinking. This is likely the cause of his dizziness and falls. He appears ill, emaciated/cachectic. Encouraged caloric intake including drinking things such as boost, ensure. He should follow-up with his primary care provider for further workup for weight loss. He is stable. No changes to his medical regimen. From a cardiac perspective I think that he is doing okay but obviously worried about other noncardiac issues which he should follow-up with Dr. Horner. Follow-up in 6 months or sooner as clinically indicated Josafat Pagan MD, [facility] This note is dictated and transcribed using [employer] Direct Software. Baker Helper variancesmay occur. Despite proofreading, typographical errors may occur. documented in this encounter Plan of Treatment Scheduled Orders Name Type Priority Associated Diagnoses Order Schedule Transthoracic Echo (TTE) Complete W Doppler/CF Echocardiography Routine Weight loss Dizziness Syncope and collapse Expected: 06/12/2024, Expires: 06/12/2025 documented as of this encounter Visit Diagnoses Diagnosis Weight loss- Primary Loss of weight Mixed hyperlipidemia Dizziness Dizziness and giddiness Syncope and collapse documented in this encounter Historical Medications * This list may reflect changes made after this encounter. bisacodyl EC (DULCOLAX EC) 5 mg EC tabletIndication s:constipation Take 1 tablet (5 mg total) by mouth daily as needed for constipation guaiFENesin ER (MUCINEX) 600 mg 12 hr tablet Take 2 tablets (1,200 mg total) by mouth 2 (two) times a day added in this encounter Care Teams Supervisor [employer] Relationship Specialty Start Date End Date Phyllis Horner MD PCP - General Family Practice 08/11/20 documented as of this encounter
--- OUTSIDE RECORDS SUMMARY | 2024-06-13 15:02 | XMS_ITS | Continuity of Care Document ---
Author Organization [facility] Address [address] [place] [address] Phone Care Team Providers Care Field Artillery Targeting Technician Name Role Phone Alber Gunter MD Unavailable Unavailable Advance Directives Directive Yes / No Effective Date File Name No Information Encounters Encounter Description Practice Location Reason(s) For Visit Diagnoses Date Provider Providers Copied on Encounter [facility], [address], [place], [place], [id number], [place] tel:[phone] [facility] No Information [address] [facility] [address], [place], [place], [id number], [place]. tel:[phone] Family History Family Member Type Diagnosis Age At Onset No Information Payers Payer name Insurance type Covered democrat ID Authoriza tion(s) No Information Social History Type Description Quantity Date Captured Comments Sex Male Smoking Status No Information Chief Complaint And Reason For Visit No Information Reason For Referral Reason For Referral No Information History Of Present Illness Encounter Date Complaint History Of Prese nt Illness No Information Functional Status Date Functional Assessmen t No Information Instructions Date Instruction Additional Infor mation No Information Assessments Type Assessment Date No Information Patient Care Teams Name Effective Dates (start - stop) Status Members No Information
--- OUTSIDE RECORDS SUMMARY | 2024-06-13 15:02 | XMS_ITS | Clinical Summary ---
Author Organization [facility] Address [facility] [place] [address] Care Team Providers Care Fuel Efficient Aircraft Designer Name Role Phone Phyllis Horner MD Primary Care Provider Allergies No known active allergies Medications guaiFENesin [...] 2014 Overview (06/16/2016): History of prostate cancer Encounters Date Type Department Care Team Description 06/12/2024 1:45 PM CDT Office Visit [facility] Cardiology [address] [place] [address] Josafat Pagan MD Weight loss (Primary Dx); Mixed hyperlipidemia; Dizziness; Syncope and collapse from Last 3 Months Medical History Medical History Date Comments Malignant neoplasm of prostate (HCC) Cancer, prostate; Comments: JBP 03/14/2014 - Hx Other Medical Psoriasis, brok en ribs and shoulder separation; Comments: MAF 03/14/2014 - Family History Medical History Relation Name Comments Heart attack Father 2 Myocardial infa rction; Cause of : Myocardial infarction Relation Name Status Comments Father 1 Father 2 Social History Tobacco Use Types Packs/Day Years Used Date Smoking Tobacco: Never Smokeless Tobacco: Never Tobacco Cessation:Counseling Given: Yes Alcohol Use Standard Drinks/Week Comments No 0 (1 standard drink = 0.6 oz pur e alcohol) Sex and Gender Information Value Date Recorded Sex Assigned at Not on file 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 Gender Identity Not on file Sexual Orientation Not on file Obstetrics History Last Filed Vital Signs Vital Sign Reading [...] 06/12/2024 1:36 PM CDT Plan of Treatment Health Maintenance Due Date Last Done Comments Depression Screening 1940 Fall Risk Assessment 1940 Hepatitis B Screening 1958 Pneumococcal vaccine 65+ (1 of 1 - PCV) 1990 Zoster Vaccine (1 of 2) 1990 Well Visit 65+ 2005 Influenza Vaccine (Season Ended) 2024 DTaP/Tdap/Td Vaccine (2 - Td or Tdap) 10/11/202803/2018 Insurance [employer] PPO Care Teams Fuel Efficient Aircraft Designer Relationship Specialty Start Date End Date Phyllis Horner MD PCP - General Family Practice 08/11/20
--- OUTSIDE RECORDS SUMMARY | 2024-06-13 15:02 | XMS_ITS | Encounter Summary ---
Author Organization [facility] Address [address] [facility] [address] [place] [address] Care Team Providers Care Safety And Health Consultant Name Role Phone Yessica Saenz MD Primary Care Provider [phone]- [phone] Yessica Saenz MD Primary Care Provider [phone]- [phone] Rajinder Nicholson MD Primary Care Provider +1- [phone] Nova Brumfield MD Primary Care Provider Phyllis Horner MD Primary Care Provider Encounter Details Date Type Department Care Team (Late st Contact Info) Description 02/25/2016 Orders Only [facility] ProviderCarmela MD [address] [place] [address] Social History Tobacco Use Types Packs/Day Years Used Date Smoking Tobacco: Never Alcohol Use Standard Drinks/Week Comments No 0 (1 standard drink = 0.6 oz pur e alcohol) Sex and Gender Information Value Date Recorded Sex Assigned at Not on file 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 Historical Provider [facility] JENNIFER HOLMAN Final Result documented in this encounter Visit Diagnoses Not on filedocumented in this encounter Care Teams Safety And Health Consultant Relationship Specialty Start Date End Date Yessica Saenz MD PCP - General 06/10/16 11/09/16 Yessica Saenz MD PCP - General 09/05/14 06/09/16 Rajinder Nicholson MD [address] [place] [address] PCP - General Family Practice 11/10/16 12/24/18 Nova Brumfield MD [address] [place] [address] PCP - General Family Medicine 12/25/18 08/10/20 Phyllis Horner MD [address] [place] [address] PCP - General Family Practice 08/11/20 documented as of this encounter
--- OUTSIDE RECORDS SUMMARY | 2024-06-13 15:02 | XMS_ITS | Encounter Summary ---
Author Organization [facility] Address [address] [facility] [address] [place] [address] Care Team Providers Care Oil Tanker Captain Name Role Phone Yessica Saenz MD Primary Care Provider +1- [phone] Yessica Saenz MD Primary Care Provider +1- [phone] Rajinder Nicholson MD Primary Care Provider +1- [phone] Nova Brumfield MD Primary Care Provider Phyllis Horner MD Primary Care Provider Encounter Details Date Type Department Care Team (Late st Contact Info) Description 04/07/2016 Orders Only [facility] ProviderCarmela MD [address] [place] [address] Social History Tobacco Use Types Packs/Day Years Used Date Smoking Tobacco: Never Alcohol Use Standard Drinks/Week Comments No 0 (1 standard drink = 0.6 oz pur e alcohol) Sex and Gender Information Value Date Recorded Sex Assigned at Not on file 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 Historical Provider [facility] JENNIFER HOLMAN Final Result documented in this encounter Visit Diagnoses Not on filedocumented in this encounter Care Teams Oil Tanker Captain Relationship Specialty Start Date End Date Yessica Saenz MD PCP - General 06/10/16 11/09/16 Yessica Saenz MD PCP - General 09/05/14 06/09/16 Rajinder Nicholson MD [address] [place] [address] PCP - General Family Practice 11/10/16 12/24/18 Nova Brumfield MD [address] [place] [address] PCP - General Family Medicine 12/25/18 08/10/20 Phyllis Horner MD [address] [place] [address] PCP - General Family Practice 08/11/20 documented as of this encounter
--- OUTSIDE RECORDS SUMMARY | 2024-06-13 15:02 | XMS_ITS | Encounter Summary ---
Author Organization [facility] Address [address] [facility] [address] [place] [address] Care Team Providers Care Salesforce Business Analyst Name Role Phone Yessica Saenz MD Primary Care Provider +1- [phone] Yessica Saenz MD Primary Care Provider +1- [phone] Rajinder Nicholson MD Primary Care Provider +1- [phone] Nova Brumfield MD Primary Care Provider Phyllis Horner MD Primary Care Provider Encounter Details Date Type Department Care Team (Late st Contact Info) Description 05/23/2016 Orders Only [facility] ProviderCarmela MD [address] [place] [address] Social History Tobacco Use Types Packs/Day Years Used Date Smoking Tobacco: Never Alcohol Use Standard Drinks/Week Comments No 0 (1 standard drink = 0.6 oz pur e alcohol) Sex and Gender Information Value Date Recorded Sex Assigned at Not on file Legal Sex Male 7:56 PM DOCUMENTATION LEAD Gender Identity Not on file Sexual Orientation Not on file documented as of this encounter Plan of Treatment Not on file documented as of this encounter Procedures Procedure Name Priority Date/Time Associated Diagnosis Comments CARDIOLOGY REPORT 05/23/2016 documented in this encounter Results * CARDIOLOGY REPORT (05/23/2016) Anatomical Region Laterality Modality Other Narrative 05/23/2016 Ordered by an unspecified provider. Historical Provider [facility] JENNIFER HOLMAN Final Result documented in this encounter Visit Diagnoses Not on filedocumented in this encounter Care Teams Salesforce Business Analyst Relationship Specialty Start Date End Date Yessica Saenz MD PCP - General 06/10/16 11/09/16 Yessica Saenz MD PCP - General 09/05/14 06/09/16 Rajinder Nicholson MD [address] [place] [address] PCP - General Family Practice 11/10/16 12/24/18 Nova Brumfield MD [address] [place] [address] PCP - General Family Medicine 12/25/18 08/10/20 Phyllis Horner MD [address] [place] [address] PCP - General Family Practice 08/11/20 documented as of this encounter
--- NOTE | 2024-06-13 15:54 | ED_ITS ---
HPI - General Adult General Chief complaint: Fall Stated complaint: fall Time Seen by Provider: 06/13/24 14:35 History of Present Illness HPI narrative: 83-year-old male presents emergency department for evaluation for increased generalized weakness, increased falls and weight loss. Family states the patient does live at home on his own and patient had initially been reluctant to have home health intervene in his care. Family states the patient has had increased falls over the last few weeks. Patient does have a skin tear to his left elbow and an abrasion to his forehead. Patient does have a chronic issue with swallowing for which he is going to have follow-up with ENT. Family states the patient also does have intermittent issues with coughing and vomiting while eating. Patient denies any complaints at this time. Patient denies any chest pain or shortness of breath. Patient denies any pain in the left elbow. Related Data Allergies Allergy/AdvReac Type Severity Reaction Status Date / Time No Known Allergies Allergy Unknown Verified 04/12/24 11:23 Review of Systems 2 Review of Systems: All systems reviewed & are unremarkable except as noted in HPI and below PMFSH Past Medical History Medical History Abnormal gait Vocal cord dysfunction Hearing loss Oral thrush Memory loss 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 Gout of big toe Dyslipidemia Hx of radiation therapy Prostate cancer Hx of malignant neoplasm of prostate Follows with Dr Castro Surgical History Surgical History History of colonoscopy last performed 2021 or 2022 History of loop recorder History of right inguinal hernia repair 1948 - x2 Family History Family History Father Family history of coronary artery disease Mother Family history of arthritis Grandparent Family history of coronary artery disease Other Family history of malignant neoplasm of breast in first degree relative Social History Social History Social History: Caffeine-none Has a daughter Smoking status: Never smoker Second hand tobacco smoke exposure: Yes Alcohol intake: never Substance use: never Substance use type: does not use Lack of Transportation: No Lack of Food: Never True Current Housing: I Have Housing Concerned About Future Housing: No Difficulty Paying Gas/Electric Bills: No Difficulty Paying for Meds: No Currently Unemployed: No Education: Bachelor's Degree Difficulty w/ Childcare or Family Care: No Living arrangements: alone Occupation/Education: retired Gender identity (if verbalized by the patient): Male Sexual Orientation (if Verbalized by the Patient): Straight or Heterosexual Spiritual care concerns: No Exam 2 Narrative: APPEARANCE: Well appearing, no pain, no distress, well-nourished. HEAD: normocephalic, abrasion to left forehead. EYES: PERRLA/EOMI, conjunctivae clear. NOSE: Normal no drainage EARS:TMS clear with good light reflex. THROAT: Pharynx clear, no exudate. NECK: Supple. No adenopathy, no masses. RESPIRATORY: Airway patent, respirations nonlabored. Clear to auscultation bilaterally, no rales, rhonchi, wheezing. CARDIOVASCULAR: Regular rate and rhythm without murmurs rubs or gallops. ABDOMINAL: Soft, nontender, nondistended, normal bowel sounds MUSCULOSKELETAL: Normal range of left elbow with no tenderness to palpation NEURO: Alert. Cranial nerves II through XII intact. Good gait. Good coordination SKIN: Abrasion to left elbow Course Vital Signs Vital signs: Vital Signs Temperature 98.2 F 06/13/24 14:32 Pulse Rate 74 06/13/24 14:32 Respiratory Rate 15 06/13/24 14:32 Blood Pressure 152/68 H 06/13/24 14:32 Pulse Oximetry 97 06/13/24 14:32 Oxygen Delivery Room Air 06/13/24 14:32 Temperature 98.2 F 06/13/24 14:32 Pulse Rate 67 06/13/24 17:16 Respiratory Rate 17 06/13/24 17:16 Blood Pressure 142/68 H 06/13/24 17:16 Pulse Oximetry 99 06/13/24 17:16 Oxygen Delivery Room Air 06/13/24 14:32 Medical Decision Making MDM Narrative Medical decision making narrative: An 83-year-old male present to the emergency department for evaluation for increased generalized weakness and decreased p.o. intake with excessive weight loss in the last few months. Patient is currently afebrile with no leukocytosis and hemoglobin of 12.6. Patient's INR is 1.1. Patient has no significant abnormalities on his CMP shoulder x-ray was positive for degenerative changes but no acute fracture dislocation. Patient's cervical spine and head CT were negative for acute injury. Chest x-ray does show evidence of aspiration pneumonia and patient does have issues with swallowing and does have episodes of possible aspiration. Family states that they have tried to do outpatient physical therapy and home health but patient had been opposed. They feel the patient has worsened over the last few weeks and is unable to take care for himself at this time. Family is not opposed to a physical therapy occupational therapy evaluation and rehab placement as needed. Family does not want the patient to go into a detention facility full-time. Differential Diagnosis Differential Diagnosis: Anemia, dehydration, delirium, dementia, failure to thrive, shoulder fracture, elbow fracture, pneumonia, aspiration pneumonia, subdural hematoma, subarachnoid hemorrhage, cervical spine fracture Vital Signs Vital Signs: Vital Signs Temperature 98.2 F 06/13/24 14:32 Pulse Rate 74 06/13/24 14:32 Respiratory Rate 15 06/13/24 14:32 Blood Pressure 152/68 H 06/13/24 14:32 Pulse Oximetry 97 06/13/24 14:32 Oxygen Delivery Room Air 06/13/24 14:32 Temperature 98.2 F 06/13/24 14:32 Pulse Rate 67 06/13/24 17:16 Respiratory Rate 17 06/13/24 17:16 Blood Pressure 142/68 H 06/13/24 17:16 Pulse Oximetry 99 06/13/24 17:16 Oxygen Delivery Room Air 06/13/24 14:32 Lab Data 06/13/24 15:50 06/13/24 15:50 Labs: Lab Results 06/13/24 Range/Units 15:50 WBC 6.4 (4.5-10.0) K/mm3 RBC 4.56 L (4.6-6.20) M/mm3 Hgb 12.6 L (14.0-18.0) g/dL Hct 39.7 L (42.0-52.0) % MCV 87.1 (80-100) fl MCH 27.6 (26-34) pg MCHC 31.7 L (32-36) g/dl RDW 13.6 (11.5-14.5) % Plt Count 287 (150-375) k/mm3 MPV 8.8 (7.4-10.4) fl Immature Gran % (Auto) 0.3 (0-0.5) % Neut % (Auto) 76.4 H (45.5-73.1) % Lymph % (Auto) 15.4 L (18.3-44.2) % [place] % (Auto) 7.6 (2.6-8.5) % Eos % (Auto) 0.0 (0-4.4) % Baso % (Auto) 0.3 (0.2-1.2) % Lymph # (Auto) 0.99 (0.9-3.2) K/mm3 [place] # (Auto) 0.5 (0.1-0.6) K/mm3 Eos # (Auto) 0.0 (0-0.3) K/mm3 Baso # (Auto) 0.0 (0.0-0.1) K/mm3 Abs Immat Gran (auto) 0.02 (0.00-0.031) K/mm3 Absolute Neuts (auto) 4.9 (1.3-6.7) K/mm3 Absolute Nucleated RBC 0.000 (0.0-0.012) K/mm3 Nucleated RBC % 0.0 (0.0-0.2) % PT 14.8 H (11.1-14.7) Seconds INR 1.1 APTT 25.5 (22.3-36.8) Seconds Sodium 138 (137-145) mmol/L Potassium 4.3 (3.4-5.0) mmol/L Chloride 103 (98-107) mmol/L Carbon Dioxide 29 (22-30) mmol/L Anion Gap 6 (4-12) mmol/L BUN 27 H (9-20) mg/dL Creatinine 1.06 (0.7-1.3) mg/dL Estim Creat Clear Calc 32 ml/min Estimated GFR > 60 (59 - ) Glucose 108 (65-110) mg/dL Calcium 9.2 (8.4-10.2) mg/dL Total Bilirubin 0.6 (0.2-1.3) mg/dL AST 24 (17-59) U/L ALT 14 (6-50) U/L Alkaline Phosphatase 78 (38-126) U/L Total Protein 8.0 (6.3-8.2) g/dL Albumin 3.8 (3.5-5.1) g/dL Imaging Data Radiologist's impression: Impressions Head CT 06/13/24 15:23 IMPRESSION: No acute intracranial process. Cervical Spine CT 06/13/24 15:27 IMPRESSION: No acute fracture or traumatic malalignment in the cervical spine. Multiple thyroid nodules, consider nonemergent, outpatient thyroid ultrasound for further characterization. Chest X-Ray 06/13/24 15:39 IMPRESSION: Right lower lung opacities may represent infection/aspiration. Trace left pleural fluid collection versus chronic pleural blunting Elbow X-Ray 06/13/24 15:40 IMPRESSION: Large elbow joint effusion, as can be seen with occult radial head fracture. Shoulder X-Ray 06/13/24 15:40 IMPRESSION: Significant degenerative disease, without acute fracture or anterior dislocation. Discharge Plan Discharge Clinical Impression: Adult failure to thrive, Abnormal weight loss, Aspiration pneumonia Patient Disposition: Still a Patient Condition: Stable
[2024-06-13 15:56] LABS: Basophils Percent Auto 0.3 % (0.2-1.2); Hematocrit 39.7 % (42.0-52.0); Hemoglobin 12.6 g/dL (14.0-18.0); Immature Granulocyte Absolute 0.02 K/mm3 (0.00-0.031); Immature Granulocyte Percent A 0.3 % (0-0.5); Lymphocytes Absolute Auto 0.99 K/mm3 (0.9-3.2); Lymphocytes Percent Auto 15.4 % (18.3-44.2); Mean Corpuscular HGB Conc 31.7 g/dl (32-36); Mean Corpuscular Hemoglobin 27.6 pg (26-34); Mean Corpuscular Volume 87.1 fl (80-100); Mean Platelet Volume 8.8 fl (7.4-10.4); Monocytes Absolute Auto 0.5 K/mm3 (0.1-0.6); Monocytes Percent Auto 7.6 % (2.6-8.5); Neutrophils Absolute Auto 4.9 K/mm3 (1.3-6.7); Neutrophils Percent Auto 76.4 % (45.5-73.1); Platelet Count Result 287 k/mm3 (150-375); Red Blood Count 4.56 M/mm3 (4.6-6.20); Red Cell Distribution Width 13.6 % (11.5-14.5); White Blood Count 6.4 K/mm3 (4.5-10.0)
[2024-06-13 16:10] LABS: Alanine Aminotransferase 14 U/L (6-50); Albumin Level 3.8 g/dL (3.5-5.1); Alkaline Phosphatase 78 U/L (38-126); Anion Gap 6 mmol/L (4-12); Aspartate Amino Transferase 24 U/L (17-59); Bilirubin,Total 0.6 mg/dL (0.2-1.3); Blood Urea Nitrogen 27 mg/dL (9-20); Calcium 9.2 mg/dL (8.4-10.2); Carbon Dioxide 29 mmol/L (22-30); Chloride 103 mmol/L (98-107); Estimated CRCL calculation 32 ml/min; Estimated Glomerular Filt Rate > 60; Glucose 108 mg/dL (65-110); INR 1.1; Potassium 4.3 mmol/L (3.4-5.0); Prothrombin Time 14.8 Seconds (11.1-14.7); Sodium 138 mmol/L (137-145)
[2024-06-13 16:11] LABS: Partial Thromboplastin Time 25.5 Seconds (22.3-36.8)
[2024-06-13] MEDS: PIPERACILLIN/TAZ 4.5G/NS 100ML 4.5 GM/100 ML BAG IVPB (17:24)
--- NOTE | 2024-06-13 17:53 | PCCCNOTE ---
Called to the ED to speak with pt's daughters regarding SNF vs home health following discharge. I printed them the [facility] list for each and explained to them that PT/OT will evaluate pt and decide what they recommend. They are also considering 24 hour care because pt is not eating well and having falls. I did explain that this is out of pocket cost. They verbalized understanding. I told them a wound care physician would see them while he is admitted to the floor to discuss these options in more detail.
--- NOTE | 2024-06-13 18:53 | ADMGEN ---
This patient, Jerman Bowen, was admitted to [facility] Surg Room 307-02. Patient/family oriented to hospital policies and general routines including ID bracelet, bed and alarms, visiting hours, pain management, procedures, bathroom and other care routines, personal items, smoking policy, room service/diet, and visiting hours. Information on how to activate the Rapid Response Team has been discussed. Patient/Family are encouraged to report perceived risks to care and to ask questions if they do not understand what they are told or what they should do.
--- NOTE | 2024-06-13 20:40 | P.HP_ITS ---
H&P: HPI History of Present Illness Date/Time: 06/13/24 20:40 Chief Complaint: Multiple falls Narrative: Mr. 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 He presents to [place] ER with increasing generalized weakness and fall. He has been reluctant to have home health or be placed in a [facility] however his family is concerned. He walks about 2 miles on most days and does not use any assistive ambulatory devices. He reports about 6 months ago began to fall more often. His falls are arbitrary in nature, they can be at the end of a 2 mi walk or right when he gets out of bed to get up in the morning. He reports a sensation of weakness and dizziness and his body then it gives out but he does not have loss of consciousness. No sensation of spinning. No chest pain, no shortness of breath. No specific weakness, no change in vision. No seizure activity. Feels he may be dehydrated although this is on the account of his family reporting so. ER evaluation did not reveal remarkable vital signs or laboratory workup aside from right lower lung opacities. He was given Zosyn 4.5 g IV x1. Review of Systems Review of Systems: All systems reviewed & are unremarkable except as noted in HPI and below (HPI) [facility] Past Medical History Medical History Abnormal gait Vocal cord dysfunction Hearing loss Oral thrush Memory loss 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 Gout of big toe Dyslipidemia Hx of radiation therapy Prostate cancer Hx of malignant neoplasm of prostate Follows with Dr Castro Surgical History Surgical History History of colonoscopy last performed 2021 or 2022 History of loop recorder History of right inguinal hernia repair 1948 - x2 Family History Family History Father Family history of coronary artery disease Mother Family history of arthritis Grandparent Family history of coronary artery disease Other Family history of malignant neoplasm of breast in first degree relative Social History Social History Social History: Caffeine-none Has a daughter Smoking status: Never smoker Second hand tobacco smoke exposure: Yes Alcohol intake: never Substance use: never Substance use type: does not use Do You Feel Safe in your Home?: Yes Lack of Transportation: No Lack of Food: Never True Current Housing: I Have Housing Concerned About Future Housing: No Difficulty Paying Gas/Electric Bills: No Difficulty Paying for Meds: No Currently Unemployed: No Education: Bachelor's Degree Difficulty w/ Childcare or Family Care: No Living arrangements: alone Occupation/Education: retired Gender identity (if verbalized by the patient): Male Sexual Orientation (if Verbalized by the Patient): Straight or Heterosexual Spiritual care concerns: No Meds Home Medications and Allergies Home Medications ?Medication ?Instructions ?Recorded ?Confirmed ?Type bisacodyl 5 mg tablet,delayed 5 mg PO BID 06/13/24 06/13/24 History release (Dulcolax (bisacodyl)) guaifenesin 600 mg tablet, 600 mg PO DAILY 06/13/24 06/13/24 History extended release 12 hr (Mucinex) Allergies Allergy/AdvReac Type Severity Reaction Status Date / Time No Known Allergies Allergy Unknown Verified 04/12/24 11:23 Vital Signs Vital Signs - 24 hr 06/13/24 14:32 06/13/24 14:39 06/13/24 14:46 Temperature 98.2 F Pulse Rate 74 69 69 Respiratory Rate 15 17 18 Blood Pressure 152/68 H 152/68 H 141/64 H Pulse Oximetry 97 98 99 Oxygen Delivery Room Air 06/13/24 15:01 06/13/24 15:45 06/13/24 16:15 Temperature Pulse Rate 71 70 72 Respiratory Rate 20 18 20 Blood Pressure 144/89 H Pulse Oximetry 98 98 100 Oxygen Delivery 06/13/24 16:46 06/13/24 17:12 06/13/24 17:16 Temperature Pulse Rate 77 71 67 Respiratory Rate 18 21 H 17 Blood Pressure 141/79 H 142/68 H Pulse Oximetry 99 99 99 Oxygen Delivery 06/13/24 19:39 Temperature 97.4 F L Pulse Rate 65 Respiratory Rate 20 Blood Pressure 119/48 L Pulse Oximetry 100 Oxygen Delivery Exam Narrative: Poor skin turgor Const: General: comfortable and no acute distress Other: A&O x3 HENMT: Mouth: Yes dry mucous membranes Eyes: Pupils: Equal, round and reactive pupils present Neck: Neck: supple Resp: Effort & Inspection: normal respiratory effort Auscultation: clear to auscultation bilaterally Cardio: Rate: regular rate Rhythm: regular rhythm GI: GI Palp: Yes Soft to palpation and No Tenderness to palpation present (GI) : General: Yes bladder normal to palpation Neuro: Motor exam (neuro): 5/5 motor strength present throughout Sensory Exam: normal sensation Extrem: General: no edema Psych: Mental Status: mental status grossly normal H&P: Results Labs Labs: Short CBC 06/13/24 Range/Units 15:50 WBC 6.4 (4.5-10.0) K/mm3 Hgb 12.6 L (14.0-18.0) g/dL Hct 39.7 L (42.0-52.0) % Plt Count 287 (150-375) k/mm3 BMP 06/13/24 15:50 Sodium 138 Potassium 4.3 Chloride 103 Carbon Dioxide 29 BUN 27 H Creatinine 1.06 Glucose 108 Calcium 9.2 Liver Function 06/13/24 Range/Units 15:50 Total Bilirubin 0.6 (0.2-1.3) mg/dL AST 24 (17-59) U/L ALT 14 (6-50) U/L Alkaline Phosphatase 78 (38-126) U/L Albumin 3.8 (3.5-5.1) g/dL Assessment and Plan Assessment and plan (1) Fall: Qualifiers: Encounter type: initial encounter Qualified Code(s): W19.XXXA - Unspecified fall, initial encounter Code(s): W19.XXXA - Unspecified fall, initial encounter Status: Acute (2) Aspiration pneumonia: Code(s): J69.0 - Pneumonitis due to inhalation of food and vomit Status: Acute (3) Dehydration: Code(s): E86.0 - Dehydration Status: Acute Plan Mr. 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 He presents to [place] ER with increasing generalized weakness and fall. He has been reluctant to have home health or be placed in a [facility] however his family is concerned. He walks about 2 miles on most days and does not use any assistive ambulatory devices. He reports about 6 months ago began to fall more often. His falls are arbitrary in nature, they can be at the end of a 2 mi walk or right when he gets out of bed to get up in the morning. He reports a sensation of weakness and dizziness and his body then it gives out but he does not have loss of consciousness. No sensation of spinning. No chest pain, no shortness of breath. No specific weakness, no change in vision. No seizure activity. Feels he may be dehydrated although this is on the account of his family reporting so. ER evaluation did not reveal remarkable vital signs or laboratory workup aside from right lower lung opacities. He was given Zosyn 4.5 g IV x1. ----- Head CT, cervical spine CT, chest x-ray, elbow x-ray, shoulder x-ray without any acute bony abnormalities aside from left large elbow joint effusion. Although reluctant to be removed from his independent living status, he is agreeable to have therapy evaluation. Fall risk, ambulate with assistance, PT OT evaluations ordered. Telemetry ordered, reassess in the morning for any arrhythmias. Start lactated Ringer's at 100 cc/hour. Continue with Zosyn 3.375 grams IV q6hr. No evidence of sepsis, continue to monitor. Likely downgrade antibiotics in the morning. Follow-up on thyroid nodules. ----- Full code. Lactated Ringer's. Regular diet. Telemetry. Fall risk, ambulate with assistance. PTOT. Hospitalist MIPS Advance Care Plan I have confirmed that the patient's Advanced Care Plan is present, code status is documented, or surrogate decision maker is listed in patient medical record.: Yes Medication Reconciliation I have utilized all available resources to obtain, update and review the patients current medications (includes all prescriptions, OTC, herbals, cannabis, and nutritional supplements).: Yes
[2024-06-13] MEDS: PIPERACILLN/TAZ 3.375GM/NS50ML 3.375 GM/50 ML BAG IVPB (22:53)
[2024-06-13] MEDS: LACTATED RINGERS 1,000 ML 100 ML IV CONT (22:53)
[2024-06-14] VITALS (9 sets, daily range): BP systolic 127–171; BP diastolic 46–71; PULSE 50–80; RESP 16–20; TEMP 36.2–36.7; O2SAT 96–100; BMI 16.9
[2024-06-14] MEDS: PIPERACILLN/TAZ 3.375GM/NS50ML 3.375 GM/50 ML BAG IVPB ×2 (05:16→12:07)
[2024-06-14 05:58] LABS: Basophils Percent Auto 0.5 % (0.2-1.2); Hematocrit 38.5 % (42.0-52.0); Hemoglobin 12.2 g/dL (14.0-18.0); Immature Granulocyte Absolute 0.03 K/mm3 (0.00-0.031); Immature Granulocyte Percent A 0.4 % (0-0.5); Lymphocytes Absolute Auto 1.52 K/mm3 (0.9-3.2); Lymphocytes Percent Auto 18.9 % (18.3-44.2); Mean Corpuscular HGB Conc 31.7 g/dl (32-36); Mean Corpuscular Hemoglobin 27.2 pg (26-34); Mean Corpuscular Volume 85.9 fl (80-100); Mean Platelet Volume 9.1 fl (7.4-10.4); Monocytes Absolute Auto 0.6 K/mm3 (0.1-0.6); Monocytes Percent Auto 7.3 % (2.6-8.5); Neutrophils Absolute Auto 5.9 K/mm3 (1.3-6.7); Neutrophils Percent Auto 72.9 % (45.5-73.1); Platelet Count Result 269 k/mm3 (150-375); Red Blood Count 4.48 M/mm3 (4.6-6.20); Red Cell Distribution Width 13.6 % (11.5-14.5)
[2024-06-14 06:27] LABS: Anion Gap 4 mmol/L (4-12); Blood Urea Nitrogen 25 mg/dL (9-20); Calcium 8.9 mg/dL (8.4-10.2); Carbon Dioxide 33 mmol/L (22-30); Chloride 102 mmol/L (98-107); Estimated CRCL calculation 31 ml/min; Estimated Glomerular Filt Rate > 60; Glucose 94 mg/dL (65-110); Magnesium 1.9 mg/dL (1.6-2.3); Potassium 4.1 mmol/L (3.4-5.0); Sodium 139 mmol/L (137-145)
[2024-06-14] MEDS: guaiFENesin 12 HR 600 MG TABCR PO (08:54)
[2024-06-14] MEDS: BISACODYL 5 MG TABLET EC PO ×2 (08:54→17:32)
[2024-06-14] MEDS: LACTATED RINGERS 1,000 ML 100 ML IV CONT (08:55)
--- NOTE | 2024-06-14 10:49 | P.PNIM_ITS ---
Progress Note: A&P Assessment and Plan (1) Fall: Qualifiers: Encounter type: initial encounter Qualified Code(s): W19.XXXA - Unspecified fall, initial encounter Code(s): W19.XXXA - Unspecified fall, initial encounter Status: Acute Assessment and Plan: * Head CT was negative for any acute intracranial process * Cervical spine CT was negative for any acute fracture or traumatic malalignment in the cervical spine * Left elbow x-ray showed large elbow joint effusion * Right shoulder x-ray showed significant degenerative disease without acute fracture or dislocation * Continue fall precautions (2) Aspiration pneumonia: Code(s): J69.0 - Pneumonitis due to inhalation of food and vomit Status: Acute Assessment and Plan: * Chest x-ray showed right lower lung opacity * Swallow study ordered * Will transition Zosyn to Augmentin and azithromycin (3) Dehydration: Code(s): E86.0 - Dehydration Status: Acute Assessment and Plan: * Patient was given IV fluids while in the ED * Maintenance IV fluids discontinued today * Patient appears euvolemic * Encourage p.o. intake of fluids (4) Severe protein-calorie malnutrition: Code(s): E43 - Unspecified severe protein-calorie malnutrition Status: Acute Assessment and Plan: * BMI 16.9, 49 kg * Continue regular diet with supplements * Dietitian consulted * Encourage p.o. intake * Will start Megace for appetite stimulant (5) Thyroid nodule: Code(s): E04.1 - Nontoxic single thyroid nodule Status: Acute Assessment and Plan: * CT of the cervical spine shows multiple thyroid nodules * Patient will need outpatient thyroid ultrasound upon discharge * Will obtain TSH Time Spent With Patient Time with patient: 25 - 35 minutes Subjective Date/time seen: 06/14/24 10:49 Interval history: Interval summary: This is an 83-year-old male with a significant past medical history of vocal cord dysfunction, gout, dyslipidemia, prostate cancer status post radiation, hearing loss who presented to the hospital for evaluation of multiple falls. Workup in the hospital included a head CT which was negative. Cervical spine CT which was negative for any acute fracture or traumatic malalignment in the cervical spine, multiple thyroid nodules. Chest x-ray showed right lower lung opacities. Left elbow x-ray showed large elbow joint effusion which can be seen with occult radial head fracture. Right shoulder x-ray showed significant degenerative disease without acute fracture or anterior dislocation. Initial labs showed a normal white blood cell count of 6.4, hemoglobin 12.6, INR 1.1 otherwise unremarkable. Blood cultures were obtained and pending. Patient was given a dose of Zosyn while in the ED for concerns for pneumonia. Subjective: Patient denies any new complaints today. Daughter is at the bedside and states that she has noticed quite a bit of coughing and clearing his throat whenever he is eating which is new for him. He does have some postnasal drip and congestion. Review of Systems Review of Systems: All systems reviewed & are unremarkable except as noted in HPI and below (HPI) Exam Narrative: General: In no acute distress, malnourished Head: atraumatic, no encephalopathy Eyes: PERRLA, sclera clear ENT: moist mucous membranes, nasal passages clear, post nasal drip Neck: supple, no JVD, no adenopathy, trachea midline Cardiac: Normal S1 and S2. No murmur, gallops or friction rubs, peripheral pulses intact. Respiratory: Lungs clear to auscultation, no adventitious lung sounds, currently on room air Gastrointestinal: soft, non-distended, non-tender, normoactive bowel sounds. : voiding without difficulty. Extremities: moves all extremities well, no edema Skin: clean, dry, intact. No wounds or lesions. Neuro: Alert and oriented x3, cranial nerves intact, no neuro deficits. Psych: normal mood, normal affect, interactive Objective Data Vital Signs Vital Signs: Vital Signs - 24 hr 06/13/24 14:32 06/13/24 14:39 06/13/24 14:46 Temperature 98.2 F Pulse Rate 74 69 69 Respiratory Rate 15 17 18 Blood Pressure 152/68 H 152/68 H 141/64 H Pulse Oximetry 97 98 99 Oxygen Delivery Room Air 06/13/24 15:01 06/13/24 15:45 06/13/24 16:15 Temperature Pulse Rate 71 70 72 Respiratory Rate 20 18 20 Blood Pressure 144/89 H Pulse Oximetry 98 98 100 Oxygen Delivery 06/13/24 16:46 06/13/24 17:12 06/13/24 17:16 Temperature Pulse Rate 77 71 67 Respiratory Rate 18 21 H 17 Blood Pressure 141/79 H 142/68 H Pulse Oximetry 99 99 99 Oxygen Delivery 06/13/24 19:39 06/13/24 20:00 06/14/24 00:00 Temperature 97.4 F L Pulse Rate 65 65 Respiratory Rate 20 Blood Pressure 119/48 L Pulse Oximetry 100 Oxygen Delivery Room Air 06/14/24 04:00 06/14/24 05:11 Temperature 97.1 F L Pulse Rate 66 80 Respiratory Rate 20 Blood Pressure 171/54 H Pulse Oximetry 99 Oxygen Delivery Intake/Output Intake/Output: Intake & Output 06/11/24 06/12/24 06/13/24 06/14/24 23:59 23:59 23:59 23:59 Intake Total 150 1608 Output Total 75 400 Balance 75 1208 Meds/Results Medications: Active Medications Generic Name Dose Route Start Last Admin Trade Name Freq PRN Reason Stop Dose Admin Acetaminophen 650 mg 06/13/24 20:39 Acetaminophen 325 Mg Tablet PO Q4H PRN Mild Pain (1-3) or Fever Bisacodyl 5 mg 06/14/24 09:00 06/14/24 08:54 Bisacodyl 5 Mg Tablet Ec PO 5 mg BID PORTILLO Administration Guaifenesin 600 mg 06/14/24 09:00 06/14/24 08:54 Guaifenesin 12 Hr 600 Mg Tabcr PO 600 mg DAILY PORTILLO Administration Piperacillin/Tazobactam/Dextrose 3.375 gm in 50 mls @ 100 mls/hr 06/13/24 23:00 06/14/24 05:46 Zosyn 3.375 Gm/Ns 50 Ml IVPB Infused Q6HR PORTILLO Infusion Lactated Ringer's 1,000 mls @ 100 mls/hr 06/13/24 20:40 06/14/24 08:55 Lr - Lactated Ringers Iv IV CONT 100 mls/hr .Q10H PORTILLO Administration Tramadol HCl 50 mg 06/13/24 20:39 Tramadol Hcl (*Crx) 50 Mg Tablet PO Q4H PRN Pain Rated 4-6 Radiology Results: ITS Impressions Head CT 06/13/24 15:23 IMPRESSION: No acute intracranial process. Cervical Spine CT 06/13/24 15:27 IMPRESSION: No acute fracture or traumatic malalignment in the cervical spine. Multiple thyroid nodules, consider nonemergent, outpatient thyroid ultrasound for further characterization. Chest X-Ray 06/13/24 15:39 IMPRESSION: Right lower lung opacities may represent infection/aspiration. Trace left pleural fluid collection versus chronic pleural blunting Elbow X-Ray 06/13/24 15:40 IMPRESSION: Large elbow joint effusion, as can be seen with occult radial head fracture. Shoulder X-Ray 06/13/24 15:40 IMPRESSION: Significant degenerative disease, without acute fracture or anterior dislocation. Labs Labs: Laboratory Results - last 24 hr 06/13/24 06/14/24 15:50 05:41 WBC 6.4 8.0 RBC 4.56 L 4.48 L Hgb 12.6 L 12.2 L Hct 39.7 L 38.5 L MCV 87.1 85.9 MCH 27.6 27.2 MCHC 31.7 L 31.7 L RDW 13.6 13.6 Plt Count 287 269 MPV 8.8 9.1 Immature Gran % (Auto) 0.3 0.4 Neut % (Auto) 76.4 H 72.9 Lymph % (Auto) 15.4 L 18.9 Boyle % (Auto) 7.6 7.3 Eos % (Auto) 0.0 0.0 Baso % (Auto) 0.3 0.5 Lymph # (Auto) 0.99 1.52 Boyle # (Auto) 0.5 0.6 Eos # (Auto) 0.0 0.0 Baso # (Auto) 0.0 0.0 Abs Immat Gran (auto) 0.02 0.03 Absolute Neuts (auto) 4.9 5.9 Absolute Nucleated RBC 0.000 0.000 Nucleated RBC % 0.0 0.0 PT 14.8 H INR 1.1 APTT 25.5 Sodium 138 139 Potassium 4.3 4.1 Chloride 103 102 Carbon Dioxide 29 33 H Anion Gap 6 4 BUN 27 H 25 H Creatinine 1.06 1.12 Estim Creat Clear Calc 32 31 Estimated GFR > 60 > 60 Glucose 108 94 Calcium 9.2 8.9 Magnesium 1.9 Total Bilirubin 0.6 AST 24 ALT 14 Alkaline Phosphatase 78 Total Protein 8.0 Albumin 3.8
[2024-06-14 17:20] LABS: Thyroid Stimulating Hormone 0.854 uIU/mL (0.465-4.680)
[2024-06-14] MEDS: MEGESTROL ACETATE (*CHEMO) 40 MG TABLET PO ×2 (17:32→19:59)
[2024-06-14] MEDS: LACTULOSE 20 GM/30 ML UDC PO (17:32)
[2024-06-14] MEDS: FLUTICASONE PROPIONATE 0.05% NA SPR 16 GM BTL (*BKC) 2 SPRAY NASAL (17:32)
[2024-06-14] MEDS: AMOXICILLIN/CLAVULANATE K 875-125 MG TAB 1 TABLET PO (19:59)
[2024-06-15] VITALS (11 sets, daily range): BP systolic 130–182; BP diastolic 59–86; PULSE 54–96; RESP 15–18; TEMP 35.9–36.9; O2SAT 97–100
[2024-06-15] MEDS: LORATADINE 10 MG TABLET PO (09:15)
[2024-06-15] MEDS: guaiFENesin 12 HR 600 MG TABCR PO (09:15)
[2024-06-15] MEDS: LACTULOSE 20 GM/30 ML UDC PO (09:15)
[2024-06-15] MEDS: AMOXICILLIN/CLAVULANATE K 875-125 MG TAB 1 TABLET PO ×2 (09:15→23:20)
[2024-06-15] MEDS: MEGESTROL ACETATE (*CHEMO) 40 MG TABLET PO (09:15)
[2024-06-15] MEDS: BISACODYL 5 MG TABLET EC PO (09:15)
--- NOTE | 2024-06-15 11:03 | P.PNIM_ITS ---
Progress Note: A&P Assessment and Plan (1) Fall: Qualifiers: Encounter type: initial encounter Qualified Code(s): W19.XXXA - Unspecified fall, initial encounter Code(s): W19.XXXA - Unspecified fall, initial encounter Status: Acute Assessment and Plan: * Head CT was negative for any acute intracranial process * Cervical spine CT was negative for any acute fracture or traumatic malalignment in the cervical spine * Left elbow x-ray showed large elbow joint effusion * Right shoulder x-ray showed significant degenerative disease without acute fracture or dislocation * Continue fall precautions 06/15 * No change to current treatment plan (2) Aspiration pneumonia: Code(s): J69.0 - Pneumonitis due to inhalation of food and vomit Status: Acute Assessment and Plan: * Chest x-ray showed right lower lung opacity * Swallow study ordered * Will transition Zosyn to Augmentin and azithromycin 06/15 * Continue Augmentin and Azithromycin * Bedside swallow revealed impartment * NPO status until Modified Barium on Monday * Start PPN * hypoglycemic protocol in place * Check blood sugars every 6 hours (3) Dehydration: Code(s): E86.0 - Dehydration Status: Acute Assessment and Plan: * Patient was given IV fluids while in the ED * Maintenance IV fluids discontinued today * Patient appears euvolemic * Encourage p.o. intake of fluids 06/15 * Start PPN and lipids * Currently NPO (4) Severe protein-calorie malnutrition: Code(s): E43 - Unspecified severe protein-calorie malnutrition Status: Acute Assessment and Plan: * BMI 16.9, 49 kg * Continue regular diet with supplements * Dietitian consulted * Encourage p.o. intake * Will start Megace for appetite stimulant 06/15 * Patient did not pass bedside swallow today * NPO until Modified barium swallow on Monday * Start PPN and lipids * Accu checks q6h * hypoglycemic protocol in place * Hold Megace (5) Thyroid nodule: Code(s): E04.1 - Nontoxic single thyroid nodule Status: Acute Assessment and Plan: * CT of the cervical spine shows multiple thyroid nodules * Patient will need outpatient thyroid ultrasound upon discharge * Will obtain TSH 06/15 * TSH 0.854 * Will order thyroid US while inpatient considering patient will be her at least until Monday. Time Spent With Patient Time with patient: 25 - 35 minutes Subjective Date/time seen: 06/15/24 11:03 Interval history: Interval summary: This is an 83-year-old male with a significant past medical history of vocal cord dysfunction, gout, dyslipidemia, prostate cancer status post radiation, hearing loss who presented to the hospital for evaluation of multiple falls. Workup in the hospital included a head CT which was negative. Cervical spine CT which was negative for any acute fracture or traumatic malalignment in the cervical spine, multiple thyroid nodules. Chest x-ray showed right lower lung opacities. Left elbow x-ray showed large elbow joint effusion which can be seen with occult radial head fracture. Right shoulder x-ray showed significant degenerative disease without acute fracture or anterior dislocation. Initial labs showed a normal white blood cell count of 6.4, hemoglobin 12.6, INR 1.1 otherwise unremarkable. Blood cultures were obtained and pending. Patient was given a dose of Zosyn while in the ED for concerns for pneumonia. Subjective: Denies any new complaints today. He had a bedside swallow today and there was still concern for aspiration. Family at bedside and updated on plan of care. Review of Systems Review of Systems: All systems reviewed & are unremarkable except as noted in HPI and below (HPI) Exam Narrative: General: In no acute distress, malnourished Cardiac: Normal S1 and S2. No murmur, gallops or friction rubs, peripheral pulses intact. Respiratory: Lungs clear to auscultation, no adventitious lung sounds, currently on room air Gastrointestinal: soft, non-distended, non-tender, normoactive bowel sounds. : voiding without difficulty. Neuro: Alert and oriented x3 Objective Data Vital Signs Vital Signs: Vital Signs - 24 hr 06/14/24 12:00 06/14/24 12:02 06/14/24 14:00 Temperature 98.0 F Pulse Rate 62 59 L Respiratory Rate 16 Blood Pressure 127/46 L Pulse Oximetry 100 Oxygen Delivery Room Air 06/14/24 16:00 06/14/24 20:00 06/14/24 20:00 Temperature Pulse Rate 66 70 Respiratory Rate Blood Pressure Pulse Oximetry Oxygen Delivery Room Air 06/14/24 21:30 06/15/24 00:00 06/15/24 04:00 Temperature 98 F Pulse Rate 74 59 L 54 L Respiratory Rate 20 Blood Pressure 142/71 H Pulse Oximetry 96 Oxygen Delivery 06/15/24 06:00 Temperature 97.3 F L Pulse Rate 96 Respiratory Rate 18 Blood Pressure 142/86 H Pulse Oximetry 100 Oxygen Delivery Intake/Output Intake/Output: Intake & Output 06/12/24 06/13/24 06/14/24 06/15/24 23:59 23:59 23:59 23:59 Intake Total 150 3428 457 Output Total 75 1300 1000 Balance 75 2234 -547 Meds/Results Medications: Active Medications Generic Name Dose Route Start Last Admin Trade Name Freq PRN Reason Stop Dose Admin Acetaminophen 650 mg 06/13/24 20:39 Acetaminophen 325 Mg Tablet PO Q4H PRN Mild Pain (1-3) or Fever Amoxicillin/Clavulanate Potassium 1 tablet 06/14/24 21:00 06/15/24 09:15 Amoxicillin/Clavulanate K 875-125 Mg Tab PO 06/18/24 21:00 1 tablet Q12HR PORTILLO Administration Azithromycin 500 mg 06/15/24 21:00 Azithromycin 250 Mg Tablet PO DAILY@2100 PORTILLO Bisacodyl 5 mg 06/14/24 09:00 06/15/24 09:15 Bisacodyl 5 Mg Tablet Ec PO 5 mg BID PORTILLO Administration Fluticasone Propionate 2 spray 06/14/24 16:15 06/14/24 17:32 Fluticasone Propionate 0.05% Na Spr 16 Gm Btl (*Bkc) NASAL 2 spray QAM PORTILLO Administration Guaifenesin 600 mg 06/14/24 09:00 06/15/24 09:15 Guaifenesin 12 Hr 600 Mg Tabcr PO 600 mg DAILY PORTILLO Administration Lactulose 20 gm 06/14/24 16:15 06/15/24 09:15 Lactulose 20 Gm/30 Ml Udc PO 20 gm QAM PORTILLO Administration Loratadine 10 mg 06/15/24 09:00 06/15/24 09:15 Loratadine 10 Mg Tablet PO 10 mg QAM PORTILLO Administration Megestrol Acetate 40 mg 06/14/24 17:00 06/15/24 09:15 Megestrol Acetate (*Chemo) 40 Mg Tablet PO 40 mg QID PORTILLO Administration Tramadol HCl 50 mg 06/13/24 20:39 Tramadol Hcl (*Crx) 50 Mg Tablet PO Q4H PRN Pain Rated 4-6 Radiology Results: ITS Impressions Head CT 06/13/24 15:23 IMPRESSION: No acute intracranial process. Cervical Spine CT 06/13/24 15:27 IMPRESSION: No acute fracture or traumatic malalignment in the cervical spine. Multiple thyroid nodules, consider nonemergent, outpatient thyroid ultrasound for further characterization. Chest X-Ray 06/13/24 15:39 IMPRESSION: Right lower lung opacities may represent infection/aspiration. Trace left pleural fluid collection versus chronic pleural blunting Elbow X-Ray 06/13/24 15:40 IMPRESSION: Large elbow joint effusion, as can be seen with occult radial head fracture. Shoulder X-Ray 06/13/24 15:40 IMPRESSION: Significant degenerative disease, without acute fracture or anterior dislocation. Labs Labs: Laboratory Results - last 24 hr 06/14/24 05:41 TSH 0.854 Quality VTE Prophylaxis VTE prophylaxis: mechanical ordered
[2024-06-15] MEDS: FLUTICASONE PROPIONATE 0.05% NA SPR 16 GM BTL (*BKC) 2 SPRAY NASAL (11:08)
--- NOTE | 2024-06-15 13:00 | PCSTNOTE ---
Please refer to the Bedside Swallow Evaluation in the EMR. Please note, silent aspiration cannot be ruled out at bedside. This pleasant 83 year old male was referred for a bedside swallow evaluation to ensure safety during oral intake. The pt was admitted on 06/13/24 due to multiple falls and has now additionally been diagnosed with aspiration pneumonia. The pt has a past medical history of chronic laryngeal pharyngeal reflux, post cricoid edema, and vocal cord dysfunction as observed by a weak vocal quality. MIKE Mccall verbalized that the pt does not have an appetite and when the pt does eat or drink he will cough after every swallow. Additionally, pills are hard for the pt to get down. The pt completed an oral mechanism exam this date that revealed appropriate strength and range of mobility of the articulators for oral intake. The pt is missing all but ~2 teeth on the upper portion of his mouth and missing some teeth on the lower portion. Pt verbalized that his family almost always goes out to eat and when they do he will always get soft foods like chicken and dumplings . Trials of thin liquids via straw, puree (pudding) via spoon, and mixed consistency (mac n cheese) via spoon were trialed this date. The pt demonstrated a delayed cough on every trial, but the pts vocal quality remained clear. During the trial of the mixed consistency the pt verbalized that it felt like something was caught in his throat. ST encouraged pt to clear his throat and swallow again. ST then provided pt with thin liquid to which pt was able to successfully swallow it. No oral residue was noted throughout the bedside swallow evaluation. The pt demonstrated strong laryngeal elevation as well as multiple swallows on every consistency. The pt exhibited a delayed triggering of his swallow during multiple trials. Due to the delayed coughing and feeling of something getting stuck in the pts throat, as well as his diagnosis of aspiration pneumonia, it is recommended that this pt be NPO until the completion of a MBS on 06/17. The MBS is unable to be completed on 06/15 or 06/16 due to no radiologist being on site. Dr. Ramirez and MIKE Mccall were notified of results and recommendations. Thank you for this referral.
[2024-06-15 13:18] LABS: Basophils Percent Auto 0.5 % (0.2-1.2); Hematocrit 42.1 % (42.0-52.0); Hemoglobin 13.1 g/dL (14.0-18.0); Immature Granulocyte Absolute 0.01 K/mm3 (0.00-0.031); Immature Granulocyte Percent A 0.2 % (0-0.5); Lymphocytes Absolute Auto 1.01 K/mm3 (0.9-3.2); Lymphocytes Percent Auto 18.4 % (18.3-44.2); Mean Corpuscular HGB Conc 31.1 g/dl (32-36); Mean Corpuscular Hemoglobin 27.3 pg (26-34); Mean Corpuscular Volume 87.7 fl (80-100); Mean Platelet Volume 9.1 fl (7.4-10.4); Monocytes Absolute Auto 0.6 K/mm3 (0.1-0.6); Monocytes Percent Auto 10.2 % (2.6-8.5); Neutrophils Absolute Auto 3.9 K/mm3 (1.3-6.7); Neutrophils Percent Auto 70.7 % (45.5-73.1); Platelet Count Result 287 k/mm3 (150-375); Red Cell Distribution Width 13.5 % (11.5-14.5); White Blood Count 5.5 K/mm3 (4.5-10.0)
[2024-06-15 13:31] LABS: Alanine Aminotransferase 16 U/L (6-50); Albumin Level 3.7 g/dL (3.5-5.1); Alkaline Phosphatase 67 U/L (38-126); Anion Gap 6 mmol/L (4-12); Aspartate Amino Transferase 26 U/L (17-59); Bilirubin,Total 0.4 mg/dL (0.2-1.3); Blood Urea Nitrogen 19 mg/dL (9-20); Calcium 9.4 mg/dL (8.4-10.2); Carbon Dioxide 31 mmol/L (22-30); Chloride 100 mmol/L (98-107); Estimated CRCL calculation 39 ml/min; Estimated Glomerular Filt Rate > 60; Glucose 90 mg/dL (65-110); Potassium 4.1 mmol/L (3.4-5.0); Sodium 137 mmol/L (137-145)
[2024-06-15 15:41] LABS: Basophils Percent Auto 0.5 % (0.2-1.2); Hematocrit 40.9 % (42.0-52.0); Hemoglobin 12.9 g/dL (14.0-18.0); Immature Granulocyte Absolute 0.02 K/mm3 (0.00-0.031); Immature Granulocyte Percent A 0.3 % (0-0.5); Lymphocytes Absolute Auto 1.15 K/mm3 (0.9-3.2); Lymphocytes Percent Auto 17.6 % (18.3-44.2); Mean Corpuscular HGB Conc 31.5 g/dl (32-36); Mean Corpuscular Hemoglobin 27.6 pg (26-34); Mean Corpuscular Volume 87.4 fl (80-100); Monocytes Absolute Auto 0.6 K/mm3 (0.1-0.6); Monocytes Percent Auto 8.6 % (2.6-8.5); Neutrophils Absolute Auto 4.8 K/mm3 (1.3-6.7); Platelet Count Result 283 k/mm3 (150-375); Red Blood Count 4.68 M/mm3 (4.6-6.20); Red Cell Distribution Width 13.6 % (11.5-14.5); White Blood Count 6.5 K/mm3 (4.5-10.0)
[2024-06-15 15:50] LABS: Alanine Aminotransferase 15 U/L (6-50); Albumin Level 3.5 g/dL (3.5-5.1); Alkaline Phosphatase 69 U/L (38-126); Anion Gap 5 mmol/L (4-12); Aspartate Amino Transferase 23 U/L (17-59); Bilirubin,Total 0.5 mg/dL (0.2-1.3); Blood Urea Nitrogen 19 mg/dL (9-20); Calcium 9.2 mg/dL (8.4-10.2); Carbon Dioxide 30 mmol/L (22-30); Chloride 101 mmol/L (98-107); Estimated CRCL calculation 40 ml/min; Estimated Glomerular Filt Rate > 60; Glucose 97 mg/dL (65-110); Magnesium 1.8 mg/dL (1.6-2.3); Potassium 4.3 mmol/L (3.4-5.0); Sodium 136 mmol/L (137-145)
[2024-06-15 15:56] LABS: Partial Thromboplastin Time 26.7 Seconds (22.3-36.8)
[2024-06-15 15:58] LABS: Transferrin 132 mg/dL (206-381)
[2024-06-15] MEDS: AMINO ACIDS 4.25%/D5W/LYTES/CA 1,000 ML 80 ML IV CONT (17:48)
[2024-06-15] MEDS: FAT EMULSIONS IV 20% 250 ML 20.8 ML IVPB (17:48)
[2024-06-15 18:18] LABS: Glucose Point of Care 100 mg/dl (65-105)
[2024-06-15] MEDS: AZITHROMYCIN 250 MG TABLET 500 MG PO (23:00)
[2024-06-16] VITALS (10 sets, daily range): BP systolic 102–145; BP diastolic 54–67; PULSE 62–83; RESP 20–24; TEMP 36.1; O2SAT 95–100
[2024-06-16 00:50] LABS: Glucose Point of Care 144 mg/dl (65-105)
[2024-06-16] MEDS: AMINO ACIDS 4.25%/D5W/LYTES/CA 1,000 ML 80 ML IV CONT ×2 (06:08→17:37)
[2024-06-16 06:12] LABS: Basophils Percent Auto 0.4 % (0.2-1.2); Eosinophils Absolute Auto 0.2 K/mm3 (0-0.3); Eosinophils Percent Auto 3.3 % (0-4.4); Hematocrit 39.8 % (42.0-52.0); Hemoglobin 12.5 g/dL (14.0-18.0); Immature Granulocyte Absolute 0.03 K/mm3 (0.00-0.031); Immature Granulocyte Percent A 0.4 % (0-0.5); Lymphocytes Percent Auto 18.1 % (18.3-44.2); Mean Corpuscular HGB Conc 31.4 g/dl (32-36); Mean Corpuscular Hemoglobin 27.6 pg (26-34); Mean Corpuscular Volume 87.9 fl (80-100); Mean Platelet Volume 9.2 fl (7.4-10.4); Monocytes Absolute Auto 0.9 K/mm3 (0.1-0.6); Neutrophils Absolute Auto 4.7 K/mm3 (1.3-6.7); Neutrophils Percent Auto 65.8 % (45.5-73.1); Platelet Count Result 267 k/mm3 (150-375); Red Blood Count 4.53 M/mm3 (4.6-6.20); Red Cell Distribution Width 13.6 % (11.5-14.5); White Blood Count 7.2 K/mm3 (4.5-10.0)
[2024-06-16 06:21] LABS: Alanine Aminotransferase 14 U/L (6-50); Albumin Level 3.4 g/dL (3.5-5.1); Alkaline Phosphatase 65 U/L (38-126); Anion Gap 4 mmol/L (4-12); Aspartate Amino Transferase 20 U/L (17-59); Bilirubin,Total 0.3 mg/dL (0.2-1.3); Blood Urea Nitrogen 19 mg/dL (9-20); Carbon Dioxide 29 mmol/L (22-30); Chloride 102 mmol/L (98-107); Estimated CRCL calculation 43 ml/min; Estimated Glomerular Filt Rate > 60; Glucose 89 mg/dL (65-110); Phosphorus 3.3 mg/dL (2.5-4.5); Potassium 4.2 mmol/L (3.4-5.0); Sodium 135 mmol/L (137-145); Triglycerides 119 mg/dL (<150)
--- NOTE | 2024-06-16 11:31 | P.PNIM_ITS ---
Progress Note: A&P Assessment and Plan (1) Fall: Qualifiers: Encounter type: initial encounter Qualified Code(s): W19.XXXA - Unspecified fall, initial encounter Code(s): W19.XXXA - Unspecified fall, initial encounter Status: Acute Assessment and Plan: * Head CT was negative for any acute intracranial process * Cervical spine CT was negative for any acute fracture or traumatic malalignment in the cervical spine * Left elbow x-ray showed large elbow joint effusion * Right shoulder x-ray showed significant degenerative disease without acute fracture or dislocation * Continue fall precautions 06/15 * No change to current treatment plan (2) Aspiration pneumonia: Code(s): J69.0 - Pneumonitis due to inhalation of food and vomit Status: Acute Assessment and Plan: * Chest x-ray showed right lower lung opacity * Swallow study ordered * Will transition Zosyn to Augmentin and azithromycin 06/15 * Continue Augmentin and Azithromycin * Bedside swallow revealed impartment * NPO status until Modified Barium on Monday * Start PPN * hypoglycemic protocol in place * Check blood sugars every 6 hours 06/16 * Will discontinue Augmentin and Azithromycin * Remains NPO until Modified barium on monday * Continue PPN (3) Dehydration: Code(s): E86.0 - Dehydration Status: Acute Assessment and Plan: * Patient was given IV fluids while in the ED * Maintenance IV fluids discontinued today * Patient appears euvolemic * Encourage p.o. intake of fluids 06/15 * Start PPN and lipids * Currently NPO 06/15 * continue PPN and lipids * Continue NPO status (4) Severe protein-calorie malnutrition: Code(s): E43 - Unspecified severe protein-calorie malnutrition Status: Acute Assessment and Plan: * BMI 16.9, 49 kg * Continue regular diet with supplements * Dietitian consulted * Encourage p.o. intake * Will start Megace for appetite stimulant 06/15 * Patient did not pass bedside swallow today * NPO until Modified barium swallow on Monday * Start PPN and lipids * Accu checks q6h * hypoglycemic protocol in place * Hold Megace 06/16 * No change (5) Thyroid nodule: Code(s): E04.1 - Nontoxic single thyroid nodule Status: Acute Assessment and Plan: * CT of the cervical spine shows multiple thyroid nodules * Patient will need outpatient thyroid ultrasound upon discharge * Will obtain TSH 06/15 * TSH 0.854 * Will order thyroid US while inpatient considering patient will be her at least until Monday. 06/16 * Awaiting results of thyroid US Time Spent With Patient Time with patient: 25 - 35 minutes Subjective Date/time seen: 06/16/24 11:31 Interval history: Interval summary: This is an 83-year-old male with a significant past medical history of vocal cord dysfunction, gout, dyslipidemia, prostate cancer status post radiation, hearing loss who presented to the hospital for evaluation of multiple falls. Workup in the hospital included a head CT which was negative. Cervical spine CT which was negative for any acute fracture or traumatic malalignment in the cervical spine, multiple thyroid nodules. Chest x-ray showed right lower lung opacities. Left elbow x-ray showed large elbow joint effusion which can be seen with occult radial head fracture. Right shoulder x-ray showed significant degenerative disease without acute fracture or anterior dislocation. Initial labs showed a normal white blood cell count of 6.4, hemoglobin 12.6, INR 1.1 otherwise unremarkable. Blood cultures were obtained and pending. Patient was given a dose of Zosyn while in the ED for concerns for pneumonia. Subjective: Denies any new complaints today. He is sitting up in the chair with daughter at bedside. Labs reviewed. Review of Systems Review of Systems: All systems reviewed & are unremarkable except as noted in HPI and below (HPI) Exam Narrative: General: In no acute distress, malnourished Cardiac: Normal S1 and S2. No murmur, gallops or friction rubs, peripheral pulses intact. Respiratory: Lungs clear to auscultation, no adventitious lung sounds, currently on room air Gastrointestinal: soft, non-distended, non-tender, normoactive bowel sounds. : voiding without difficulty. Neuro: Alert and oriented x3 Objective Data Vital Signs Vital Signs: Vital Signs - 24 hr 06/15/24 12:00 06/15/24 14:00 06/15/24 15:20 Temperature 98.5 F Pulse Rate 72 67 Respiratory Rate 15 Blood Pressure 130/59 L Pulse Oximetry 97 Oxygen Delivery Room Air 06/15/24 16:00 06/15/24 20:00 06/15/24 20:00 Temperature Pulse Rate 62 67 Respiratory Rate Blood Pressure Pulse Oximetry Oxygen Delivery Room Air 06/15/24 21:20 06/15/24 22:59 06/15/24 23:26 Temperature 96.6 F L Pulse Rate 63 Respiratory Rate 18 Blood Pressure 172/73 H 182/84 H 162/79 H Pulse Oximetry 98 Oxygen Delivery 06/16/24 00:00 06/16/24 04:00 06/16/24 05:30 Temperature 96.9 F L Pulse Rate 67 67 71 Respiratory Rate 20 Blood Pressure 142/62 H Pulse Oximetry 98 Oxygen Delivery 06/16/24 09:00 Temperature Pulse Rate Respiratory Rate Blood Pressure Pulse Oximetry 100 Oxygen Delivery Room Air Intake/Output Intake/Output: Intake & Output 06/13/24 06/14/24 06/15/24 06/16/24 23:59 23:59 23:59 23:59 Intake Total 150 3428 457 986.7 Output Total 75 1300 1001 1225 Balance 75 2128 -544 -238.3 Meds/Results Medications: Active Medications Generic Name Dose Route Start Last Admin Trade Name Freq PRN Reason Stop Dose Admin Acetaminophen 650 mg 06/13/24 20:39 Acetaminophen 325 Mg Tablet PO Q4H PRN Mild Pain (1-3) or Fever Amoxicillin/Clavulanate Potassium 1 tablet 06/14/24 21:00 06/15/24 23:20 Amoxicillin/Clavulanate K 875-125 Mg Tab PO 06/18/24 21:00 1 tablet Q12HR PORTILLO Administration Azithromycin 500 mg 06/15/24 21:00 06/15/24 23:00 Azithromycin 250 Mg Tablet PO 500 mg DAILY@2100 PORTILLO Administration Bisacodyl 5 mg 06/14/24 09:00 06/15/24 17:36 Bisacodyl 5 Mg Tablet Ec PO Not Given BID PORTILLO Dextrose 12.5 gm 06/15/24 13:05 Dextrose 50% 25 Gm/50 Ml Syringe IV PUSH PRN PRN Hypoglycemia Protocol Fluticasone Propionate 2 spray 06/14/24 16:15 06/15/24 11:08 Fluticasone Propionate 0.05% Na Spr 16 Gm Btl (*Bkc) NASAL 2 spray QAM PORTILLO Administration Glucagon 1 mg 06/15/24 13:05 Glucagon For Inj 1 Mg Vial IM PRN PRN Hypoglycemia Protocol Glucose 15 gm 06/15/24 13:05 Glucose Oral Gel 15 Gm Of Glucse In 37.5 Gm Tube PO PRN PRN Hypoglycemia Protocol Guaifenesin 600 mg 06/14/24 09:00 06/15/24 09:15 Guaifenesin 12 Hr 600 Mg Tabcr PO 600 mg DAILY PORTILLO Administration Dextrose 1,000 mls @ 100 mls/hr 06/15/24 13:05 Dextrose 5% 1,000 Ml IVPB PRN PRN Hypoglycemia Protocol Dextrose 1,000 mls @ 50 mls/hr 06/15/24 15:06 Dextrose 10% IV CONT .Q20H PRN if PN is interrupted Amino Acids/Electrolytes/Dextrose 1,000 mls @ 80 mls/hr 06/15/24 17:00 06/16/24 06:08 Clinimix E 4.25%/5% Solution IV CONT 80 mls/hr .[id number] PORTILLO Administration Protocol Fat Emulsion Intravenous 250 mls @ 20.833 mls/hr 06/15/24 17:00 06/15/24 17:48 Lipids 20% IVPB 20.8 mls/hr Q24H PORTILLO Administration Lactulose 20 gm 06/14/24 16:15 06/15/24 09:15 Lactulose 20 Gm/30 Ml Udc PO 20 gm QAM PORTILLO Administration Loratadine 10 mg 06/15/24 09:00 06/15/24 09:15 Loratadine 10 Mg Tablet PO 10 mg QAM PORTILLO Administration Megestrol Acetate 40 mg 06/14/24 17:00 06/15/24 13:30 Megestrol Acetate (*Chemo) 40 Mg Tablet PO Not Given QID PORTILLO Tramadol HCl 50 mg 06/13/24 20:39 Tramadol Hcl (*Crx) 50 Mg Tablet PO Q4H PRN Pain Rated 4-6 Radiology Results: ITS Impressions Head CT 06/13/24 15:23 IMPRESSION: No acute intracranial process. Cervical Spine CT 06/13/24 15:27 IMPRESSION: No acute fracture or traumatic malalignment in the cervical spine. Multiple thyroid nodules, consider nonemergent, outpatient thyroid ultrasound for further characterization. Chest X-Ray 06/13/24 15:39 IMPRESSION: Right lower lung opacities may represent infection/aspiration. Trace left pl eural fluid collection versus chronic pleural blunting Elbow X-Ray 06/13/24 15:40 IMPRESSION: Large elbow joint effusion, as can be seen with occult radial head fracture. Shoulder X-Ray 06/13/24 15:40 IMPRESSION: Significant degenerative disease, without acute fracture or anterior dislocation. Labs Labs: Laboratory Results - last 24 hr 06/15/24 06/15/24 06/15/24 13:12 15:36 18:14 WBC 5.5 6.5 RBC 4.80 4.68 Hgb 13.1 L 12.9 L Hct 42.1 40.9 L MCV 87.7 87.4 MCH 27.3 27.6 MCHC 31.1 L 31.5 L RDW 13.5 13.6 Plt Count 287 283 MPV 9.1 9.0 Immature Gran % (Auto) 0.2 0.3 Neut % (Auto) 70.7 73.0 Lymph % (Auto) 18.4 17.6 L [place] % (Auto) 10.2 H 8.6 H Eos % (Auto) 0.0 0.0 Baso % (Auto) 0.5 0.5 Lymph # (Auto) 1.01 1.15 [place] # (Auto) 0.6 0.6 Eos # (Auto) 0.0 0.0 Baso # (Auto) 0.0 0.0 Abs Immat Gran (auto) 0.01 0.02 Absolute Neuts (auto) 3.9 4.8 Absolute Nucleated RBC 0.000 0.000 Nucleated RBC % 0.0 0.0 APTT 26.7 Sodium 137 136 L Potassium 4.1 4.3 Chloride 100 101 Carbon Dioxide 31 H 30 Anion Gap 6 5 BUN 19 19 Creatinine 0.86 0.84 Estim Creat Clear Calc 39 40 Estimated GFR > 60 > 60 Glucose 90 97 POC Capillary Glucose 100 Calcium 9.4 9.2 Phosphorus Magnesium 1.8 Transferrin 132 L Total Bilirubin 0.4 0.5 AST 26 23 ALT 16 15 Alkaline Phosphatase 67 69 Total Protein 7.0 7.0 Albumin 3.7 3.5 Triglycerides 06/16/24 06/16/24 00:48 05:47 WBC 7.2 RBC 4.53 L Hgb 12.5 L Hct 39.8 L MCV 87.9 MCH 27.6 MCHC 31.4 L RDW 13.6 Plt Count 267 MPV 9.2 Immature Gran % (Auto) 0.4 Neut % (Auto) 65.8 Lymph % (Auto) 18.1 L [place] % (Auto) 12.0 H Eos % (Auto) 3.3 Baso % (Auto) 0.4 Lymph # (Auto) 1.30 [place] # (Auto) 0.9 H Eos # (Auto) 0.2 Baso # (Auto) 0.0 Abs Immat Gran (auto) 0.03 Absolute Neuts (auto) 4.7 Absolute Nucleated RBC 0.000 Nucleated RBC % 0.0 APTT Sodium 135 L Potassium 4.2 Chloride 102 Carbon Dioxide 29 Anion Gap 4 BUN 19 Creatinine 0.79 Estim Creat Clear Calc 43 Estimated GFR > 60 Glucose 89 POC Capillary Glucose 144 H Calcium 9.0 Phosphorus 3.3 Magnesium Transferrin Total Bilirubin 0.3 AST 20 ALT 14 Alkaline Phosphatase 65 Total Protein 7.0 Albumin 3.4 L Triglycerides 119 Quality VTE Prophylaxis VTE prophylaxis: mechanical ordered
[2024-06-16 12:39] LABS: Glucose Point of Care 70 mg/dl (65-105)
[2024-06-16 14:52] LABS: Glucose Point of Care 100 mg/dl (65-105)
[2024-06-16] MEDS: FAT EMULSIONS IV 20% 250 ML 20.8 ML IVPB (17:37)
[2024-06-16 18:36] LABS: Glucose Point of Care 99 mg/dl (65-105)
[2024-06-17] VITALS (10 sets, daily range): BP systolic 110–161; BP diastolic 56–64; PULSE 63–87; RESP 16–20; TEMP 36–36.9; O2SAT 96–100
[2024-06-17 00:13] LABS: Glucose Point of Care 101 mg/dl (65-105)
[2024-06-17 06:08] LABS: Basophils Percent Auto 0.5 % (0.2-1.2); Eosinophils Absolute Auto 0.2 K/mm3 (0-0.3); Eosinophils Percent Auto 3.1 % (0-4.4); Hemoglobin 12.6 g/dL (14.0-18.0); Immature Granulocyte Absolute 0.02 K/mm3 (0.00-0.031); Immature Granulocyte Percent A 0.3 % (0-0.5); Lymphocytes Absolute Auto 1.24 K/mm3 (0.9-3.2); Lymphocytes Percent Auto 20.4 % (18.3-44.2); Mean Corpuscular HGB Conc 31.5 g/dl (32-36); Mean Corpuscular Hemoglobin 27.4 pg (26-34); Mean Platelet Volume 9.4 fl (7.4-10.4); Monocytes Absolute Auto 0.7 K/mm3 (0.1-0.6); Monocytes Percent Auto 11.5 % (2.6-8.5); Neutrophils Absolute Auto 3.9 K/mm3 (1.3-6.7); Neutrophils Percent Auto 64.2 % (45.5-73.1); Platelet Count Result 271 k/mm3 (150-375); Red Cell Distribution Width 13.7 % (11.5-14.5); White Blood Count 6.1 K/mm3 (4.5-10.0)
[2024-06-17] MEDS: AMINO ACIDS 4.25%/D5W/LYTES/CA 1,000 ML 80 ML IV CONT ×2 (06:12→17:35)
[2024-06-17 06:16] LABS: Alanine Aminotransferase 13 U/L (6-50); Albumin Level 3.4 g/dL (3.5-5.1); Alkaline Phosphatase 59 U/L (38-126); Anion Gap 3 mmol/L (4-12); Aspartate Amino Transferase 20 U/L (17-59); Bilirubin,Total 0.3 mg/dL (0.2-1.3); Blood Urea Nitrogen 25 mg/dL (9-20); Calcium 8.9 mg/dL (8.4-10.2); Carbon Dioxide 27 mmol/L (22-30); Chloride 103 mmol/L (98-107); Estimated CRCL calculation 47 ml/min; Estimated Glomerular Filt Rate > 60; Glucose 104 mg/dL (65-110); Phosphorus 3.4 mg/dL (2.5-4.5); Potassium 4.5 mmol/L (3.4-5.0); Sodium 133 mmol/L (137-145)
[2024-06-17 06:23] LABS: Transferrin 128 mg/dL (206-381)
[2024-06-17 06:27] LABS: INR 1.2; Prothrombin Time 15.4 Seconds (11.1-14.7)
[2024-06-17 06:28] LABS: Partial Thromboplastin Time 32.3 Seconds (22.3-36.8)
[2024-06-17] MEDS: FLUTICASONE PROPIONATE 0.05% NA SPR 16 GM BTL (*BKC) 2 SPRAY NASAL (08:36)
--- NOTE | 2024-06-17 11:02 | PCNFU ---
Nutrition Follow-Up Complete: Severe protein calorie malnutrition related to chronic loss of appetite as evidenced by weight loss -11%/2 months; intakes <75% needs >1 month; severe muscle wasting and fat loss Goal:Adequate PO intake at least 75% meals and supplements Pt not meeting goal, NPO Pt current nutrition is NPO, PPN ordered: Clinimix E 4.25/5 @ 80ml/hr with lipids: 1153kcals, 82g protein. Nutrition recommendation: consider alternative nutrition support via tube feed Last recorded weight is 49.7 kg. Bowel Motility: +BM 06/16 Labs Reviewed: Hgb:12.6, HCT:40, NA:133, BUN:25 Meds Noted: lactulose, megace Skin:WNL Additional Notes:Pt NPO, had an MBS this morning and recommendations continue for NPO. PPN is running and providing 65% of estimated needs, 117% of protein needs. Recommend to consider using a tube feed for nutrition if pt is to remain NPO due to swallow function. Monitoring intakes, weights, labs, supplement tolerance, plan of care Follow up every Monday and Monday.
[2024-06-17 11:35] LABS: Glucose Point of Care 126 mg/dl (65-105)
--- NOTE | 2024-06-17 11:54 | P.PNIM_ITS ---
Progress Note: A&P Assessment and Plan (1) Fall: Qualifiers: Encounter type: initial encounter Qualified Code(s): W19.XXXA - Unspecified fall, initial encounter Code(s): W19.XXXA - Unspecified fall, initial encounter Status: Acute Assessment and Plan: * Head CT was negative for any acute intracranial process * Cervical spine CT was negative for any acute fracture or traumatic malalignment in the cervical spine * Left elbow x-ray showed large elbow joint effusion * Right shoulder x-ray showed significant degenerative disease without acute fracture or dislocation * Continue fall precautions 06/15 * No change to current treatment plan (2) Aspiration pneumonia: Code(s): J69.0 - Pneumonitis due to inhalation of food and vomit Status: Acute Assessment and Plan: * Chest x-ray showed right lower lung opacity * Swallow study ordered * Will transition Zosyn to Augmentin and azithromycin 06/15 * Continue Augmentin and Azithromycin * Bedside swallow revealed impartment * NPO status until Modified Barium on Monday * Start PPN * hypoglycemic protocol in place * Check blood sugars every 6 hours 06/16 * Will discontinue Augmentin and Azithromycin * Remains NPO until Modified barium on Monday * Continue PPN 06/17 * Continue to monitor * Continue PPN and NPO status (3) Dehydration: Code(s): E86.0 - Dehydration Status: Acute Assessment and Plan: * Patient was given IV fluids while in the ED * Maintenance IV fluids discontinued today * Patient appears euvolemic * Encourage p.o. intake of fluids 06/15 * Start PPN and lipids * Currently NPO 06/15 * continue PPN and lipids * Continue NPO status (4) Severe protein-calorie malnutrition: Code(s): E43 - Unspecified severe protein-calorie malnutrition Status: Acute Assessment and Plan: * BMI 16.9, 49 kg * Continue regular diet with supplements * Dietitian consulted * Encourage p.o. intake * Will start Megace for appetite stimulant 06/15 * Patient did not pass bedside swallow today * NPO until Modified barium swallow on Monday * Start PPN and lipids * Accu checks q6h * hypoglycemic protocol in place * Hold Megace 06/16 * No change 06/17 * Patient did not pass barium swallow today * Daughter and patient agreeable to G-tube * GI consulted for G-tube placement * Continue NPO status * Continue PPN for now (5) Thyroid nodule: Code(s): E04.1 - Nontoxic single thyroid nodule Status: Acute Assessment and Plan: * CT of the cervical spine shows multiple thyroid nodules * Patient will need outpatient thyroid ultrasound upon discharge * Will obtain TSH 06/15 * TSH 0.854 * Will order thyroid US while inpatient considering patient will be her at least until Monday. 06/16 * Awaiting results of thyroid US 06/17 * Thyroid US shown multinodular goiter with recommendations for ultrasound guided biopsy * Will obtain US guided biopsy considering his dysphagia Time Spent With Patient Time with patient: 25 - 35 minutes Subjective Date/time seen: 06/17/24 11:54 Interval history: Interval summary: This is an 83-year-old male with a significant past medical history of vocal cord dysfunction, gout, dyslipidemia, prostate cancer status post radiation, hearing loss who presented to the hospital for evaluation of multiple falls. Workup in the hospital included a head CT which was negative. Cervical spine CT which was negative for any acute fracture or traumatic malalignment in the cervical spine, multiple thyroid nodules. Chest x-ray showed right lower lung opacities. Left elbow x-ray showed large elbow joint effusion which can be seen with occult radial head fracture. Right shoulder x-ray showed significant de generative disease without acute fracture or anterior dislocation. Initial labs showed a normal white blood cell count of 6.4, hemoglobin 12.6, INR 1.1 otherwise unremarkable. Blood cultures were obtained and pending. Patient was given a dose of Zosyn while in the ED for concerns for pneumonia. Subjective: Denies any new complaints today. He is sitting up in the chair with daughter at bedside. Labs reviewed. Review of Systems Review of Systems: All systems reviewed & are unremarkable except as noted in HPI and below (HPI) Exam Narrative: General: In no acute distress, malnourished, [place] Cardiac: Normal S1 and S2. No murmur, gallops or friction rubs, peripheral pulses intact. Respiratory: Lungs clear to auscultation, no adventitious lung sounds, currently on room air Gastrointestinal: soft, non-distended, non-tender, normoactive bowel sounds. : voiding without difficulty. Neuro: Alert and oriented x3 Objective Data Vital Signs Vital Signs: Vital Signs - 24 hr 06/16/24 12:00 06/16/24 14:00 06/16/24 16:00 Temperature 96.9 F L Pulse Rate 74 83 70 Respiratory Rate 20 Blood Pressure 102/54 L Pulse Oximetry 95 Oxygen Delivery 06/16/24 20:00 06/16/24 20:00 06/16/24 22:00 Temperature 97 F L Pulse Rate 62 77 Respiratory Rate 24 H Blood Pressure 145/67 H Pulse Oximetry 100 Oxygen Delivery Room Air 06/17/24 00:00 06/17/24 04:00 06/17/24 05:51 Temperature 96.8 F L Pulse Rate 64 64 63 Respiratory Rate 20 Blood Pressure 133/64 Pulse Oximetry 96 Oxygen Delivery 06/17/24 08:00 06/17/24 08:00 06/17/24 10:04 Temperature Pulse Rate 65 Respiratory Rate Blood Pressure 110/58 L Pulse Oximetry Oxygen Delivery Room Air Intake/Output Intake/Output: Intake & Output 06/14/24 06/15/24 06/16/24 06/17/24 23:59 23:59 23:59 23:59 Intake Total 3428 457 2221.4 1000 Output Total 1300 1001 1975 1000 Balance 2128 -544 246.4 0 Meds/Results Medications: Active Medications Generic Name Dose Route Start Last Admin Trade Name Freq PRN Reason Stop Dose Admin Acetaminophen 650 mg 06/13/24 20:39 Acetaminophen 325 Mg Tablet PO Q4H PRN Mild Pain (1-3) or Fever Bisacodyl 5 mg 06/14/24 09:00 06/16/24 09:00 Bisacodyl 5 Mg Tablet Ec PO Not Given BID PORTILLO Dextrose 12.5 gm 06/15/24 13:05 Dextrose 50% 25 Gm/50 Ml Syringe IV PUSH PRN PRN Hypoglycemia Protocol Fluticasone Propionate 2 spray 06/14/24 16:15 06/17/24 08:36 Fluticasone Propionate 0.05% Na Spr 16 Gm Btl (*Bkc) NASAL 2 spray QAM PORTILLO Administration Glucagon 1 mg 06/15/24 13:05 Glucagon For Inj 1 Mg Vial IM PRN PRN Hypoglycemia Protocol Glucose 15 gm 06/15/24 13:05 Glucose Oral Gel 15 Gm Of Glucse In 37.5 Gm Tube PO PRN PRN Hypoglycemia Protocol Guaifenesin 600 mg 06/14/24 09:00 06/16/24 09:00 Guaifenesin 12 Hr 600 Mg Tabcr PO Not Given DAILY PORTILLO Dextrose 1,000 mls @ 100 mls/hr 06/15/24 13:05 Dextrose 5% 1,000 Ml IVPB PRN PRN Hypoglycemia Protocol Dextrose 1,000 mls @ 50 mls/hr 06/15/24 15:06 Dextrose 10% IV CONT .Q20H PRN if PN is interrupted Amino Acids/Electrolytes/Dextrose 1,000 mls @ 80 mls/hr 06/15/24 17:00 06/17/24 06:12 Clinimix E 4.25%/5% Solution IV CONT 80 mls/hr .[id number] PORTILLO Administration Protocol Fat Emulsion Intravenous 250 mls @ 20.833 mls/hr 06/15/24 17:00 06/16/24 17:37 Lipids 20% IVPB 20.8 mls/hr Q24H PORTILLO Administration Lactulose 20 gm 06/14/24 16:15 06/15/24 09:15 Lactulose 20 Gm/30 Ml Udc PO 20 gm QAM PORTILLO Administration Loratadine 10 mg 06/15/24 09:00 06/16/24 09:00 Loratadine 10 Mg Tablet PO Not Given QAM PORTILLO Megestrol Acetate 40 mg 06/14/24 17:00 06/15/24 13:30 Megestrol Acetate (*Chemo) 40 Mg Tablet PO Not Given QID PORTILLO Tramadol HCl 50 mg 06/13/24 20:39 Tramadol Hcl (*Crx) 50 Mg Tablet PO Q4H PRN Pain Rated 4-6 Radiology Results: ITS Impressions Head CT 06/13/24 15:23 IMPRESSION: No acute intracranial process. Cervical Spine CT 06/13/24 15:27 IMPRESSION: No acute fracture or traumatic malalignment in the cervical spine. Multiple thyroid nodules, consider nonemergent, outpatient thyroid ultrasound for further characterization. Chest X-Ray 06/13/24 15:39 IMPRESSION: Right lower lung opacities may represent infection/aspiration. Trace left pleural fluid collection versus chronic pleural blunting Elbow X-Ray 06/13/24 15:40 IMPRESSION: Large elbow joint effusion, as can be seen with occult radial head fracture. Shoulder X-Ray 06/13/24 15:40 IMPRESSION: Significant degenerative disease, without acute fracture or anterior dislocation. Thyroid Ultrasound 06/17/24 08:04 IMPRESSION: 1. Multinodular goiter including a 2.0 cm Ti RADS 5 left thyroid nodule and a 2.4 cm TI-RADS 4 right thyroid nodule. These would meet criteria for ultrasound guided biopsy although need for biopsy although given patient age, need for biopsy may depend on clinical considerations. Modified Barium Swallow 06/17/24 09:50 IMPRESSION: Pharyngeal dysphagia with laryngeal penetration and silent aspiration. Please correlate with speech pathologist findings and specific feeding recommendations. Labs Labs: Laboratory Results - last 24 hr 06/16/24 06/16/24 06/16/24 12:36 14:49 18:33 WBC RBC Hgb Hct MCV MCH MCHC RDW Plt Count MPV Immature Gran % (Auto) Neut % (Auto) Lymph % (Auto) [place] % (Auto) Eos % (Auto) Baso % (Auto) Lymph # (Auto) [place] # (Auto) Eos # (Auto) Baso # (Auto) Abs Immat Gran (auto) Absolute Neuts (auto) Absolute Nucleated RBC Nucleated RBC % PT INR APTT Sodium Potassium Chloride Carbon Dioxide Anion Gap BUN Creatinine Estim Creat Clear Calc Estimated GFR Glucose POC Capillary Glucose 70 100 99 Calcium Phosphorus Magnesium Transferrin Total Bilirubin AST ALT Alkaline Phosphatase Total Protein Albumin 06/17/24 06/17/24 06/17/24 00:11 05:44 11:33 WBC 6.1 RBC 4.60 Hgb 12.6 L Hct 40.0 L MCV 87.0 MCH 27.4 MCHC 31.5 L RDW 13.7 Plt Count 271 MPV 9.4 Immature Gran % (Auto) 0.3 Neut % (Auto) 64.2 Lymph % (Auto) 20.4 [place] % (Auto) 11.5 H Eos % (Auto) 3.1 Baso % (Auto) 0.5 Lymph # (Auto) 1.24 [place] # (Auto) 0.7 H Eos # (Auto) 0.2 Baso # (Auto) 0.0 Abs Immat Gran (auto) 0.02 Absolute Neuts (auto) 3.9 Absolute Nucleated RBC 0.000 Nucleated RBC % 0.0 PT 15.4 H INR 1.2 APTT 32.3 Sodium 133 L Potassium 4.5 Chloride 103 Carbon Dioxide 27 Anion Gap 3 L BUN 25 H Creatinine 0.73 Estim Creat Clear Calc 47 Estimated GFR > 60 Glucose 104 POC Capillary Glucose 101 126 H Calcium 8.9 Phosphorus 3.4 Magnesium 2.0 Transferrin 128 L Total Bilirubin 0.3 AST 20 ALT 13 Alkaline Phosphatase 59 Total Protein 7.0 Albumin 3.4 L Quality VTE Prophylaxis VTE prophylaxis: mechanical ordered
[2024-06-17 12:12] LABS: Glucose Point of Care 114 mg/dl (65-105)
--- NOTE | 2024-06-17 12:50 | PCSTNOTE ---
Please refer to the Modified Barium Swallow Evaluation in the EMR. The above pt was seen for a modified barium swallow evaluation due to overt s/s of aspiration exhibited during the bedside swallow evaluation. Pt has a recent history of multiple falls and now additionally been diagnosed with aspiration pneumonia. The pt has a past medical history of chronic laryngeal pharyngeal reflux, post cricoid edema, and vocal cord dysfunction. Per bedside swallow evaluation oral exam revealed appropriate strength and range of mobility of the articulators for oral intake. The pt is missing all but ~2 teeth on the upper portion of his mouth and missing some teeth on the lower portion. The pt was seated for a lateral view and presented with thin liquids and pudding in controlled amounts via a spoon. ?The oral stages were within functional limits; but during the pharyngeal stage, the pt presented with reduced tongue base retraction as evidenced by vallecular residue (mild) with the pudding trial, reduced laryngeal elevation as evidenced by laryngeal penetration during the swallow with thin liquids and pudding consistency; and reduced laryngeal closure as evidenced by aspiration during the swallow of both thin liquid & pudding. ?Aspiration was essentially silent; pt was verbally cued to cough and dry swallow but he was not able to clear the aspiration. Impressions: Overall pt appeared markedly weak/frail; pt lacked pharyngeal peristalsis/the ability to push contents through the pharynx causing max residue; he also exhibited marked decline in laryngeal strength/mobility causing poor airway protection and subsequent aspiration. Recommendation: start non oral feeding and conversations with pt and/or family re the potential need for more permanent means of nonoral nutrition. ST will initiate dysphagia therapy but due to the severity of his dysphagia it is doubtful he will return to oral intake during this admission. ? Thank you for this referral
[2024-06-17] MEDS: FAT EMULSIONS IV 20% 250 ML 20.8 ML IVPB (17:36)
--- NOTE | 2024-06-17 17:57 | P.CONGI_ITS ---
Assessment and Plan Assessment and plan (1) Severe protein-calorie malnutrition: Code(s): E43 - Unspecified severe protein-calorie malnutrition Status: Acute Assessment and Plan: noted dysphagia and risk of aspiration, also cachectic family agreeable to peg, will set up for tomorrow (2) Dysphagia: Code(s): R13.10 - Dysphagia, unspecified Status: Acute Assessment and Plan: peg tomorrow (3) Aspiration pneumonia: Code(s): J69.0 - Pneumonitis due to inhalation of food and vomit Status: Acute (4) Frequent falls: Code(s): R29.6 - Repeated falls Status: Acute (5) Dehydration: Code(s): E86.0 - Dehydration Status: Acute Assessment and Plan: treated (6) Swallowing impaired: Code(s): R13.10 - Dysphagia, unspecified Status: Acute GI Consult Note Consult date/time: 06/17/24 17:57 Reason for consult: dysphagia, aspiration pneumonia HPI: Jerman Bowen is a 83 year old male with a history hearing loss, memory loss, dyslipidemia, chronic laryngeal pharyngeal reflux admitted 4 days ago with frequent falls. He is not best historian and family is at bedside. Family noted increasing generalized weakness, also less oral intake and finally admitted to hospital. Diagnosed with aspiration pneumonia, he failed swallow study and he is at risk of more aspiration and he is malnourished with BMI 17, primary started TPN and POA agreeable to place G-tube. Review of Systems 2 Constitutional: Constitutional: Reports lethargy and Reports weakness Eyes: Eyes: Denies blurry vision ENT: Denies Normal hearing present Cardiovascular: Cardiovascular: Denies chest pain Respiratory: Respiratory: Reports cough Gastrointestinal: Gastrointestinal: Denies abdominal pain Genitourinary: Genitourinary: Denies hematuria Musculoskeletal: Musculoskeletal: Denies neck pain Integumentary/Breasts: Skin/Breast: Denies rash Neurologic: Denies Abnormal speech present Psychiatric: Psychiatric: Reports confusion PMFSH Past Medical History Medical History (Updated 06/17/24 @ 18:01 by Saran Tracey MD) Dysphagia Abnormal gait Vocal cord dysfunction Hearing loss Oral thrush Memory loss 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 Gout of big toe Dyslipidemia Hx of radiation therapy Prostate cancer Hx of malignant neoplasm of prostate Follows with Dr Castro Surgical History Surgical History History of colonoscopy last performed 2021 or 2022 History of loop recorder History of right inguinal hernia repair 1948 - x2 Family History Family History Father Family history of coronary artery disease Mother Family history of arthritis Grandparent Family history of coronary artery disease Other Family history of malignant neoplasm of breast in first degree relative Social History Social History Social History: Caffeine-none Has a daughter Smoking status: Never smoker Second hand tobacco smoke exposure: Yes Alcohol intake: never Substance use: never Substance use type: does not use Do You Feel Safe in your Home?: Yes Lack of Transportation: No Lack of Food: Never True Current Housing: I Have Housing Concerned About Future Housing: No Difficulty Paying Gas/Electric Bills: No Difficulty Paying for Meds: No Currently Unemployed: No Education: Bachelor's Degree Difficulty w/ Childcare or Family Care: No Living arrangements: alone Occupation/Education: retired Gender identity (if verbalized by the patient): Male Sexual Orientation (if Verbalized by the Patient): Straight or Heterosexual Spiritual care concerns: No Meds Home Medications and Allergies Home Medications ?Medication ?Instructions ?Recorded ?Confirmed ?Type bisacodyl 5 mg tablet,delayed 5 mg PO BID 06/13/24 06/13/24 History release (Dulcolax (bisacodyl)) guaifenesin 600 mg tablet, 600 mg PO DAILY 06/13/24 06/13/24 History extended release 12 hr (Mucinex) Allergies Allergy/AdvReac Type Severity Reaction Status Date / Time No Known Allergies Allergy Unknown Verified 04/12/24 11:23 Vital Signs Vital Signs - 24 hr 06/16/24 20:00 06/16/24 20:00 06/16/24 22:00 Temperature 97 F L Pulse Rate 62 77 Respiratory Rate 24 H Blood Pressure 145/67 H Pulse Oximetry 100 Oxygen Delivery Room Air 06/17/24 00:00 06/17/24 04:00 06/17/24 05:51 Temperature 96.8 F L Pulse Rate 64 64 63 Respiratory Rate 20 Blood Pressure 133/64 Pulse Oximetry 96 Oxygen Delivery 06/17/24 08:00 06/17/24 08:00 06/17/24 10:04 Temperature Pulse Rate 65 Respiratory Rate Blood Pressure 110/58 L Pulse Oximetry Oxygen Delivery Room Air 06/17/24 12:00 06/17/24 14:00 06/17/24 16:00 Temperature 97.1 F L Pulse Rate 79 69 87 Respiratory Rate 16 Blood Pressure 126/56 L Pulse Oximetry 98 Oxygen Delivery Exam 2 Const: General: comfortable Other: malnourished HENMT: Face/Nose/Sinus: Normal nares present Eyes: Sclera: sclerae normal Neck: Neck: supple Resp: Effort & Inspection: normal respiratory effort Cardio: Rate: regular rate GI: GI Palp: Yes Soft to palpation and No Tenderness to palpation present (GI) Auscultation: normal bowel sounds Skin: General skin exam: normal color Neuro: Speech: normal speech Extrem: General: normal to inspection Psych: Attitude: not belligerent Results Labs 06/17/24 05:44 06/17/24 05:44 Labs: Short CBC 06/17/24 Range/Units 05:44 WBC 6.1 (4.5-10.0) K/mm3 Hgb 12.6 L (14.0-18.0) g/dL Hct 40.0 L (42.0-52.0) % Plt Count 271 (150-375) k/mm3 BMP 06/17/24 05:44 Sodium 133 L Potassium 4.5 Chloride 103 Carbon Dioxide 27 BUN 25 H Creatinine 0.73 Glucose 104 Calcium 8.9 Liver Function 06/17/24 Range/Units 05:44 Total Bilirubin 0.3 (0.2-1.3) mg/dL AST 20 (17-59) U/L ALT 13 (6-50) U/L Alkaline Phosphatase 59 (38-126) U/L Albumin 3.4 L (3.5-5.1) g/dL
[2024-06-17 18:39] LABS: Glucose Point of Care 106 mg/dl (65-105)
[2024-06-18] VITALS (12 sets, daily range): BP systolic 93–155; BP diastolic 41–71; PULSE 64–81; RESP 12–20; TEMP 36–36.7; O2SAT 97–100
[2024-06-18 00:50] LABS: Glucose Point of Care 121 mg/dl (65-105)
[2024-06-18 05:49] LABS: Basophils Percent Auto 0.3 % (0.2-1.2); Eosinophils Absolute Auto 0.2 K/mm3 (0-0.3); Eosinophils Percent Auto 2.8 % (0-4.4); Hematocrit 36.3 % (42.0-52.0); Hemoglobin 11.5 g/dL (14.0-18.0); Immature Granulocyte Absolute 0.02 K/mm3 (0.00-0.031); Immature Granulocyte Percent A 0.3 % (0-0.5); Lymphocytes Absolute Auto 1.47 K/mm3 (0.9-3.2); Lymphocytes Percent Auto 22.5 % (18.3-44.2); Mean Corpuscular HGB Conc 31.7 g/dl (32-36); Mean Corpuscular Hemoglobin 27.1 pg (26-34); Mean Corpuscular Volume 85.4 fl (80-100); Mean Platelet Volume 9.2 fl (7.4-10.4); Monocytes Absolute Auto 0.8 K/mm3 (0.1-0.6); Monocytes Percent Auto 12.7 % (2.6-8.5); Neutrophils Percent Auto 61.4 % (45.5-73.1); Platelet Count Result 256 k/mm3 (150-375); Red Blood Count 4.25 M/mm3 (4.6-6.20); Red Cell Distribution Width 13.6 % (11.5-14.5); White Blood Count 6.5 K/mm3 (4.5-10.0)
[2024-06-18 06:01] LABS: Alanine Aminotransferase 12 U/L (6-50); Albumin Level 3.2 g/dL (3.5-5.1); Alkaline Phosphatase 54 U/L (38-126); Anion Gap 3 mmol/L (4-12); Aspartate Amino Transferase 20 U/L (17-59); Bilirubin,Total 0.4 mg/dL (0.2-1.3); Blood Urea Nitrogen 27 mg/dL (9-20); Calcium 8.6 mg/dL (8.4-10.2); Carbon Dioxide 26 mmol/L (22-30); Chloride 103 mmol/L (98-107); Estimated CRCL calculation 47 ml/min; Estimated Glomerular Filt Rate > 60; Glucose 109 mg/dL (65-110); Phosphorus 3.3 mg/dL (2.5-4.5); Potassium 4.2 mmol/L (3.4-5.0); Sodium 132 mmol/L (137-145)
--- NOTE | 2024-06-18 08:35 | P.PNIM_ITS ---
Progress Note: A&P Assessment and Plan (1) Fall: Qualifiers: Encounter type: initial encounter Qualified Code(s): W19.XXXA - Unspecified fall, initial encounter Code(s): W19.XXXA - Unspecified fall, initial encounter Status: Acute Assessment and Plan: * Head CT was negative for any acute intracranial process * Cervical spine CT was negative for any acute fracture or traumatic malalignment in the cervical spine * Left elbow x-ray showed large elbow joint effusion * Right shoulder x-ray showed significant degenerative disease without acute fracture or dislocation * Continue fall precautions * PT OT evaluate and treat (2) Aspiration pneumonia: Code(s): J69.0 - Pneumonitis due to inhalation of food and vomit Status: Acute Assessment and Plan: * Chest x-ray showed right lower lung opacity * Modified Barium failed * PPN and NPO * Plan for G-tube placement * hypoglycemic protocol in place * Check blood sugars every 6 hours * Completed Augmentin and Azithromycin (3) Dehydration: Code(s): E86.0 - Dehydration Status: Acute Assessment and Plan: * Patient was given IV fluids while in the ED * continue PPN and lipids * Continue NPO status (4) Severe protein-calorie malnutrition: Code(s): E43 - Unspecified severe protein-calorie malnutrition Status: Acute Assessment and Plan: * BMI 16.9, 49 kg * Daughter and patient agreeable to G-tube * GI consulted for G-tube placement today Dietary is recommendations Jevity 1.5 @ 20ml/hr to advance by 10ml/hr q 4 hrs as tolerated, to a goal rate of 55ml/hr over 22 hrs. 150ml flushes q 4 hrs for an additional 900ml free water per day. *Bolus conversion: Jevity 1.5 -300ml bolus QID, 150ml flush q 4 hrs (5) Thyroid nodule: Code(s): E04.1 - Nontoxic single thyroid nodule Status: Acute Assessment and Plan: * CT of the cervical spine shows multiple thyroid nodules * TSH 0.854 * Will order thyroid US while inpatient considering patient will be her at least until Monday. * Thyroid US shown multinodular goiter with recommendations for ultrasound guided biopsy * Patient should follow-up outpatient for biopsy as this is not inpatient procedure Time Spent With Patient Time with patient: Greater than 35 minutes Subjective Date/time seen: 06/18/24 08:35 Interval history: Interval summary: This is an 83-year-old male with a significant past medical history of vocal cord dysfunction, gout, dyslipidemia, prostate cancer status post radiation, hearing loss who presented to the hospital for evaluation of multiple falls. Patient was given a dose of Zosyn while in the ED for concerns for pneumonia. Subjective: Denies any new complaints today. Plan for G-tube placement today. Review of Systems Review of Systems: All systems reviewed & are unremarkable except as noted in HPI and below (HPI) Exam Narrative: General: Chronically ill, malnourished, appears stated age. [place] HEENT: normocephalic, atraumatic. Mucous membranes moist. EOMI, PERRLA, bilateral sclera anicteric, no conjunctival injection. Neck supple without JVD, lymphadenopathy, or bruit. Respiratory: clear to ascultation bilaterally. No rales/rhonic/wheezes. Cardiovascular: Regular rate and rhythm, normal S1-S2 upon ascultation. No murmurs, rubs, or clicks. PMI is nondisplaced, capillary refill less than 3 second. Abdomen: Soft, round, no pulsatile masses, nondistended and nontender. No rebound, no guarding. No CVA tenderness, no hepatosplenomegaly. Bowel sounds present to all four quadrants. No high pitch or tinkling sounds, resonant to percussion. Extremities: No cyanosis, clubbing, or edema present. Pulses are palpable 2/2. Active ROM to all four extremities. Neuro: Alert and orientated x 4. PERRLA. Cranial nerves 2-12 intact without focal deficit. Skin: Warm, dry, and intact, without rash, erythema, or lesion. Psych: pleasant, cooperative, normal speech, normal affect, no hallucinations, no dysarthia Objective Data Vital Signs Vital Signs: Vital Signs - 24 hr 06/17/24 10:04 06/17/24 12:00 06/17/24 14:00 Temperature 97.1 F L Pulse Rate 79 69 Respiratory Rate 16 Blood Pressure 110/58 L 126/56 L Pulse Oximetry 98 06/17/24 16:00 06/17/24 20:00 06/17/24 22:00 Temperature 98.4 F Pulse Rate 87 64 73 Respiratory Rate 16 Blood Pressure 161/64 H Pulse Oximetry 100 06/18/24 00:00 06/18/24 04:00 06/18/24 05:30 Temperature 98 F Pulse Rate 69 65 71 Respiratory Rate 20 Blood Pressure 116/66 Pulse Oximetry 97 Intake/Output Intake/Output: Intake & Output 06/15/24 06/16/24 06/17/24 06/18/24 23:59 23:59 23:59 23:59 Intake Total 457 2221.4 2160.7 0 Output Total 1001 1975 1600 850 Balance -544 246.4 560.7 850 Meds/Results Medications: Active Medications Generic Name Dose Route Start Last Admin Trade Name Freq PRN Reason Stop Dose Admin Acetaminophen 650 mg 06/13/24 20:39 Acetaminophen 325 Mg Tablet PO Q4H PRN Mild Pain (1-3) or Fever Bisacodyl 5 mg 06/14/24 09:00 06/16/24 09:00 Bisacodyl 5 Mg Tablet Ec PO Not Given BID PORTILLO Dextrose 12.5 gm 06/15/24 13:05 Dextrose 50% 25 Gm/50 Ml Syringe IV PUSH PRN PRN Hypoglycemia Protocol Fluticasone Propionate 2 spray 06/14/24 16:15 06/17/24 08:36 Fluticasone Propionate 0.05% Na Spr 16 Gm Btl (*Bkc) NASAL 2 spray QAM PORTILLO Administration Glucagon 1 mg 06/15/24 13:05 Glucagon For Inj 1 Mg Vial IM PRN PRN Hypoglycemia Protocol Glucose 15 gm 06/15/24 13:05 Glucose Oral Gel 15 Gm Of Glucse In 37.5 Gm Tube PO PRN PRN Hypoglycemia Protocol Guaifenesin 600 mg 06/14/24 09:00 06/16/24 09:00 Guaifenesin 12 Hr 600 Mg Tabcr PO Not Given DAILY PORTILLO Dextrose 1,000 mls @ 100 mls/hr 06/15/24 13:05 Dextrose 5% 1,000 Ml IVPB PRN PRN Hypoglycemia Protocol Dextrose 1,000 mls @ 50 mls/hr 06/15/24 15:06 Dextrose 10% IV CONT .Q20H PRN if PN is interrupted Amino Acids/Electrolytes/Dextrose 1,000 mls @ 80 mls/hr 06/15/24 17:00 06/17/24 17:35 Clinimix E 4.25%/5% Solution IV CONT 80 mls/hr .[id number] PORTILLO Administration Protocol Fat Emulsion Intravenous 250 mls @ 20.833 mls/hr 06/15/24 17:00 06/17/24 17:3 6 Lipids 20% IVPB 20.8 mls/hr Q24H PORTILLO Administration Cefazolin Sodium 1 gm in 50 mls @ 100 mls/hr 06/18/24 13:00 Ancef 1 Gm/Ns 50 Ml IVPB 06/18/24 13:29 ONCE ONE Lactulose 20 gm 06/14/24 16:15 06/15/24 09:15 Lactulose 20 Gm/30 Ml Udc PO 20 gm QAM PORTILLO Administration Loratadine 10 mg 06/15/24 09:00 06/16/24 09:00 Loratadine 10 Mg Tablet PO Not Given QAM PORTILLO Megestrol Acetate 40 mg 06/14/24 17:00 06/15/24 13:30 Megestrol Acetate (*Chemo) 40 Mg Tablet PO Not Given QID PORTILLO Tramadol HCl 50 mg 06/13/24 20:39 Tramadol Hcl (*Crx) 50 Mg Tablet PO Q4H PRN Pain Rated 4-6 Radiology Results: ITS Impressions Head CT 06/13/24 15:23 IMPRESSION: No acute intracranial process. Cervical Spine CT 06/13/24 15:27 IMPRESSION: No acute fracture or traumatic malalignment in the cervical spine. Multiple thyroid nodules, consider nonemergent, outpatient thyroid ultrasound for further characterization. Chest X-Ray 06/13/24 15:39 IMPRESSION: Right lower lung opacities may represent infection/aspiration. Trace left pleural fluid collection versus chronic pleural blunting Elbow X-Ray 06/13/24 15:40 IMPRESSION: Large elbow joint effusion, as can be seen with occult radial head fracture. Shoulder X-Ray 06/13/24 15:40 IMPRESSION: Significant degenerative disease, without acute fracture or anterior dislocation. Thyroid Ultrasound 06/17/24 08:04 IMPRESSION: 1. Multinodular goiter including a 2.0 cm Ti RADS 5 left thyroid nodule and a 2.4 cm TI-RADS 4 right thyroid nodule. These would meet criteria for ultrasound guided biopsy although need for biopsy although given patient age, need for biopsy may depend on clinical considerations. Modified Barium Swallow 06/17/24 09:50 IMPRESSION: Pharyngeal dysphagia with laryngeal penetration and silent aspiration. Please correlate with speech pathologist findings and specific feeding recommendations. Labs Labs: Laboratory Results - last 24 hr 06/17/24 06/17/24 06/17/24 11:33 12:08 18:36 WBC RBC Hgb Hct MCV MCH MCHC RDW Plt Count MPV Immature Gran % (Auto) Neut % (Auto) Lymph % (Auto) [place] % (Auto) Eos % (Auto) Baso % (Auto) Lymph # (Auto) [place] # (Auto) Eos # (Auto) Baso # (Auto) Abs Immat Gran (auto) Absolute Neuts (auto) Absolute Nucleated RBC Nucleated RBC % Sodium Potassium Chloride Carbon Dioxide Anion Gap BUN Creatinine Estim Creat Clear Calc Estimated GFR Glucose POC Capillary Glucose 126 H 114 H 106 H Calcium Phosphorus Total Bilirubin AST ALT Alkaline Phosphatase Total Protein Albumin 06/18/24 06/18/24 00:47 05:31 WBC 6.5 RBC 4.25 L Hgb 11.5 L Hct 36.3 L MCV 85.4 MCH 27.1 MCHC 31.7 L RDW 13.6 Plt Count 256 MPV 9.2 Immature Gran % (Auto) 0.3 Neut % (Auto) 61.4 Lymph % (Auto) 22.5 [place] % (Auto) 12.7 H Eos % (Auto) 2.8 Baso % (Auto) 0.3 Lymph # (Auto) 1.47 [place] # (Auto) 0.8 H Eos # (Auto) 0.2 Baso # (Auto) 0.0 Abs Immat Gran (auto) 0.02 Absolute Neuts (auto) 4.0 Absolute Nucleated RBC 0.000 Nucleated RBC % 0.0 Sodium 132 L Potassium 4.2 Chloride 103 Carbon Dioxide 26 Anion Gap 3 L BUN 27 H Creatinine 0.72 Estim Creat Clear Calc 47 Estimated GFR > 60 Glucose 109 POC Capillary Glucose 121 H Calcium 8.6 Phosphorus 3.3 Total Bilirubin 0.4 AST 20 ALT 12 Alkaline Phosphatase 54 Total Protein 7.0 Albumin 3.2 L Quality VTE Prophylaxis VTE prophylaxis: mechanical ordered
[2024-06-18] MEDS: AMINO ACIDS 4.25%/D5W/LYTES/CA 1,000 ML 80 ML IV CONT (11:00)
[2024-06-18] MEDS: FLUTICASONE PROPIONATE 0.05% NA SPR 16 GM BTL (*BKC) 2 SPRAY NASAL (11:05)
--- NOTE | 2024-06-18 11:33 | PCOTNOTE ---
Patient unavailable at this time, going down to have a PEG tube placed
[2024-06-18 12:01] LABS: Glucose Point of Care 114 mg/dl (65-105)
--- NOTE | 2024-06-18 12:05 | WPDANESEPPF ---
Anes - Initial Pre Proc Eval Procedure: Operation Date: 06/18/24 15:00 Proposed Procedures p Percutaneous Endoscopic Gastrostomy - Saran Tracey MD Date/Time: 06/18/24 12:05 Surgeon: Ramona Ramirez APRN Pre Op Diagnosis: Failure to thrive, aspiration pneumonia Patient Data Age: 83 Gender: M Height: 1.7 m Weight: 49.7 kg Last Vital Signs Temp 36.6 C 06/18/24 05:30 Pulse 71 06/18/24 05:30 Resp 20 06/18/24 05:30 BP 116/66 06/18/24 05:30 Pulse Ox 97 06/18/24 05:30 O2 Del Method Room Air 06/17/24 08:00 Allergies Allergy/AdvReac Type Severity Reaction Status Date / Time No Known Allergies Allergy Unknown Verified 06/18/24 12:03 Home Medications ?Medication ?Instructions ?Recorded ?Confirmed ?Type bisacodyl 5 mg tablet,delayed 5 mg PO BID 06/13/24 06/13/24 History release (Dulcolax (bisacodyl)) guaifenesin 600 mg tablet, 600 mg PO DAILY 06/13/24 06/13/24 History extended release 12 hr (Mucinex) Laboratory Tests 06/17/24 06/17/24 06/18/24 12:08 18:36 00:47 WBC RBC Hgb Hct MCV MCH MCHC RDW Plt Count MPV Immature Gran % (Auto) Neut % (Auto) Lymph % (Auto) [place] % (Auto) Eos % (Auto) Baso % (Auto) Lymph # (Auto) [place] # (Auto) Eos # (Auto) Baso # (Auto) Abs Immat Gran (auto) Absolute Neuts (auto) Absolute Nucleated RBC Nucleated RBC % Sodium Potassium Chloride Carbon Dioxide Anion Gap BUN Creatinine Estim Creat Clear Calc Estimated GFR Glucose POC Capillary Glucose 114 H mg/dl 106 H mg/dl 121 H mg/dl (65-105) (65-105) (65-105) Calcium Phosphorus Total Bilirubin AST ALT Alkaline Phosphatase Total Protein Albumin 06/18/24 06/18/24 05:31 11:46 WBC 6.5 K/mm3 (4.5-10.0) RBC 4.25 L M/mm3 (4.6-6.20) Hgb 11.5 L g/dL (14.0-18.0) Hct 36.3 L % (42.0-52.0) MCV 85.4 fl (80-100) MCH 27.1 pg (26-34) MCHC 31.7 L g/dl (32-36) RDW 13.6 % (11.5-14.5) Plt Count 256 k/mm3 (150-375) MPV 9.2 fl (7.4-10.4) Immature Gran % (Auto) 0.3 % (0-0.5) Neut % (Auto) 61.4 % (45.5-73.1) Lymph % (Auto) 22.5 % (18.3-44.2) [place] % (Auto) 12.7 H % (2.6-8.5) Eos % (Auto) 2.8 % (0-4.4) Baso % (Auto) 0.3 % (0.2-1.2) Lymph # (Auto) 1.47 K/mm3 (0.9-3.2) [place] # (Auto) 0.8 H K/mm3 (0.1-0.6) Eos # (Auto) 0.2 K/mm3 (0-0.3) Baso # (Auto) 0.0 K/mm3 (0.0-0.1) Abs Immat Gran (auto) 0.02 K/mm3 (0.00-0.031) Absolute Neuts (auto) 4.0 K/mm3 (1.3-6.7) Absolute Nucleated RBC 0.000 K/mm3 (0.0-0.012) Nucleated RBC % 0.0 % (0.0-0.2) Sodium 132 L mmol/L (137-145) Potassium 4.2 mmol/L (3.4-5.0) Chloride 103 mmol/L (98-107) Carbon Dioxide 26 mmol/L (22-30) Anion Gap 3 L mmol/L (4-12) BUN 27 H mg/dL (9-20) Creatinine 0.72 mg/dL (0.7-1.3) Estim Creat Clear Calc 47 ml/min Estimated GFR > 60 (59 - ) Glucose 109 mg/dL (65-110) POC Capillary Glucose 114 H mg/dl (65-105) Calcium 8.6 mg/dL (8.4-10.2) Phosphorus 3.3 mg/dL (2.5-4.5) Total Bilirubin 0.4 mg/dL (0.2-1.3) AST 20 U/L (17-59) ALT 12 U/L (6-50) Alkaline Phosphatase 54 U/L (38-126) Total Protein 7.0 g/dL (6.3-8.2) Albumin 3.2 L g/dL (3.5-5.1) Patient hx anesthesia problems: none Family hx anesthesia problems: none Results Review: All pre-operative results and documents have been reviewed as part of the pre-operative evaluation. FORMERLY [facility], [facility] Past Medical History Medical History Dysphagia Abnormal gait Vocal cord dysfunction Hearing loss Oral thrush Memory loss 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 Gout of big toe Dyslipidemia Hx of radiation therapy Prostate cancer Hx of malignant neoplasm of prostate Follows with Dr Castro Surgical History Surgical History History of colonoscopy last performed 2021 or 2022 History of loop recorder History of right inguinal hernia repair 1948 - x2 Family History Family History Father Family history of coronary artery disease Mother Family history of arthritis Grandparent Family history of coronary artery disease Other Family history of malignant neoplasm of breast in first degree relative Social History Social History Social History: Caffeine-none Has a daughter Smoking status: Never smoker Second hand tobacco smoke exposure: Yes Alcohol intake: never Substance use: never Substance use type: does not use Do You Feel Safe in your Home?: Yes Lack of Transportation: No Lack of Food: Never True Current Housing: I Have Housing Concerned About Future Housing: No Difficulty Paying Gas/Electric Bills: No Difficulty Paying for Meds: No Currently Unemployed: No Education: Bachelor's Degree Difficulty w/ Childcare or Family Care: No Living arrangements: alone Occupation/Education: retired Gender identity (if verbalized by the patient): Male Sexual Orientation (if Verbalized by the Patient): Straight or Heterosexual Spiritual care concerns: No Anes - Eval Final PreProcedure Day of Procedure 04/08/25 12:05 Patient weight: thin Heart: regular rate and rhythm Lungs: decreased breath sounds Airway: Mallampati scale class II Neurological: other (alert) Last oral intake: >/= 8 hours ASA classification: III Emergent: no Anesthetic plan: proceed Anesthesia type and monitoring: general GIVS and standard monitoring Results Review: All pre-operative results and documents have been reviewed as part of the pre-operative evaluation. Informed Consent: The patient's anesthetic plan and its attendant risks and benefits were discussed with the patient/family/POA. Questions were solicited and answers provided to the satisfaction of the patient/family/POA.
--- NOTE | 2024-06-18 12:07 | PCNFU ---
Nutrition Follow-Up Complete: Severe protein calorie malnutrition related to chronic loss of appetite as evidenced by weight loss -11%/2 months; intakes <75% needs >1 month; severe muscle wasting and fat loss Goal:Adequate PO intake at least 75% meals and supplements pt not meeting goal. New goal to meet estimated needs via alternative nutrition support Pt current nutrition is NPO, PPN running Clinimix E 4.25/5 @ 80ml/hr with lipids: 1153kcals, 82g protein. Nutrition recommendation: D/C PPN, switch to tube feeds once PEG is placed. Last recorded weight is 49.7 kg. Bowel Motility: +BM 06/16 Labs Reviewed: Hgb:11.5, HCT:36.3, Alb:3.2, NA:132, BUN:27, Glu:121 Meds Noted: lactulose, megace Skin: WNL Additional Notes: Pt NPO, has been on PPN for nutrition support, failed MBS and recommendations for NPO to continue. Pt and family decided on proceeding with a PEG placement for nutrition support, to be placed today. Recommend to initiate tube feeds when cleared by GI to use tube. Recommend Jevity 1.5 @ 20ml/hr to advance by 10ml/hr q 4 hrs as tolerated, to a goal rate of 55ml/hr over 22 hrs. This will provide 1815kcals, 77g protein, 919ml free water. Recommend 150ml flushes q 4 hrs for an additional 900ml free water per day. *Bolus conversion: Jevity 1.5 -300ml bolus QID, 150ml flush q 4 hrs. Monitoring intakes, weights, labs, supplement tolerance, plan of care Follow up in 1 day and then every Monday and Monday
[2024-06-18] MEDS: ceFAZolin 1 GM/NS 50 ML 1 GM/50 ML BAG IVPB (12:13)
[2024-06-18] MEDS: LACTATED RINGERS 1,000 ML 150 ML IV CONT (12:14)
--- NOTE | 2024-06-18 12:15 | PCDIET ---
Recommend to initiate tube feeds when cleared by GI to use tube. Recommend Jevity 1.5 @ 20ml/hr to advance by 10ml/hr q 4 hrs as tolerated, to a goal rate of 55ml/hr over 22 hrs. This will provide 1815kcals, 77g protein, 919ml free water. Recommend 150ml flushes q 4 hrs for an additional 900ml free water per day. *Bolus conversion: Jevity 1.5 -300ml bolus QID, 150ml flush q 4 hrs.
--- NOTE | 2024-06-18 12:27 | PC.NURSE ---
Patient out of room at 1150 for surgery.
[2024-06-18 14:47] LABS: Triglycerides 57 mg/dL (<150)
[2024-06-18 18:14] LABS: Glucose Point of Care 105 mg/dl (65-105)
[2024-06-19] VITALS (9 sets, daily range): BP systolic 94–147; BP diastolic 49–71; PULSE 52–87; RESP 13–20; TEMP 36.2–36.5; O2SAT 96–100
[2024-06-19 00:09] LABS: Glucose Point of Care 106 mg/dl (65-105)
[2024-06-19] MEDS: traMADol HCL (*CRX) 50 MG TABLET PO (00:48)
[2024-06-19 06:20] LABS: Basophils Percent Auto 0.5 % (0.2-1.2); Eosinophils Absolute Auto 0.1 K/mm3 (0-0.3); Eosinophils Percent Auto 2.5 % (0-4.4); Hematocrit 37.7 % (42.0-52.0); Immature Granulocyte Absolute 0.02 K/mm3 (0.00-0.031); Immature Granulocyte Percent A 0.4 % (0-0.5); Lymphocytes Percent Auto 24.6 % (18.3-44.2); Mean Corpuscular HGB Conc 31.8 g/dl (32-36); Mean Corpuscular Hemoglobin 27.4 pg (26-34); Mean Corpuscular Volume 86.1 fl (80-100); Mean Platelet Volume 9.2 fl (7.4-10.4); Monocytes Absolute Auto 0.7 K/mm3 (0.1-0.6); Monocytes Percent Auto 11.6 % (2.6-8.5); Neutrophils Absolute Auto 3.4 K/mm3 (1.3-6.7); Neutrophils Percent Auto 60.4 % (45.5-73.1); Platelet Count Result 282 k/mm3 (150-375); Red Blood Count 4.38 M/mm3 (4.6-6.20); Red Cell Distribution Width 13.5 % (11.5-14.5); White Blood Count 5.7 K/mm3 (4.5-10.0)
[2024-06-19 06:34] LABS: Alanine Aminotransferase 27 U/L (6-50); Albumin Level 3.3 g/dL (3.5-5.1); Alkaline Phosphatase 57 U/L (38-126); Anion Gap 6 mmol/L (4-12); Aspartate Amino Transferase 38 U/L (17-59); Bilirubin,Total 0.5 mg/dL (0.2-1.3); Blood Urea Nitrogen 26 mg/dL (9-20); Calcium 8.9 mg/dL (8.4-10.2); Carbon Dioxide 28 mmol/L (22-30); Chloride 101 mmol/L (98-107); Estimated CRCL calculation 41 ml/min; Estimated Glomerular Filt Rate > 60; Glucose 114 mg/dL (65-110); Phosphorus 3.1 mg/dL (2.5-4.5); Potassium 4.5 mmol/L (3.4-5.0); Sodium 135 mmol/L (137-145)
--- NOTE | 2024-06-19 07:39 | P.PNIM_ITS ---
Progress Note: A&P Assessment and Plan (1) Fall: Qualifiers: Encounter type: initial encounter Qualified Code(s): W19.XXXA - Unspecified fall, initial encounter Code(s): W19.XXXA - Unspecified fall, initial encounter Status: Acute Assessment and Plan: * Head CT was negative for any acute intracranial process * Cervical spine CT was negative for any acute fracture or traumatic malalignment in the cervical spine * Left elbow x-ray showed large elbow joint effusion * Right shoulder x-ray showed significant degenerative disease without acute fracture or dislocation * Continue fall precautions * PT OT evaluate and treat (2) Aspiration pneumonia: Code(s): J69.0 - Pneumonitis due to inhalation of food and vomit Status: Acute Assessment and Plan: * Chest x-ray showed right lower lung opacity * Modified Barium failed * PPN and NPO * Plan for G-tube placement * hypoglycemic protocol in place * Check blood sugars every 6 hours * Completed Augmentin and Azithromycin (3) Dehydration: Code(s): E86.0 - Dehydration Status: Acute Assessment and Plan: * Patient was given IV fluids while in the ED * continue PPN and lipids * Continue NPO status (4) Severe protein-calorie malnutrition: Code(s): E43 - Unspecified severe protein-calorie malnutrition Status: Acute Assessment and Plan: * BMI 16.9, 49 kg * Daughter and patient agreeable to G-tube * GI consulted for G-tube placement today Dietary is recommendations Jevity 1.5 @ 20ml/hr to advance by 10ml/hr q 4 hrs as tolerated, to a goal rate of 55ml/hr over 22 hrs. 150ml flushes q 4 hrs for an additional 900ml free water per day. *Bolus conversion: Jevity 1.5 -300ml bolus QID, 150ml flush q 4 hrs (5) Thyroid nodule: Code(s): E04.1 - Nontoxic single thyroid nodule Status: Acute Assessment and Plan: * CT of the cervical spine shows multiple thyroid nodules * TSH 0.854 * Will order thyroid US while inpatient considering patient will be her at least until Monday. * Thyroid US shown multinodular goiter with recommendations for ultrasound guided biopsy * Patient should follow-up outpatient for biopsy as this is not inpatient procedure Subjective Date/time seen: 06/19/24 07:39 Interval history: Interval summary: This is an 83-year-old male with a significant past medical history of vocal cord dysfunction, gout, dyslipidemia, prostate cancer status post radiation, hearing loss who presented to the hospital for evaluation of multiple falls. Patient was given a dose of Zosyn while in the ED for concerns for pneumonia. 06/19/2024 Patient is sitting comfortably at bedside upon examination. Denies any CP, SOB, n/v, or abdominal pain at this time. G-tube placed yesterday without complications. Plan to increase tube feedings to meet TF goal and will plan on d ischarge to SNF possible tomorrow. Review of Systems Review of Systems: All systems reviewed & are unremarkable except as noted in HPI and below (HPI) Exam Narrative: General: Chronically ill, malnourished, appears stated age. [place] HEENT: normocephalic, atraumatic. Mucous membranes moist. EOMI, PERRLA, bilateral sclera anicteric, no conjunctival injection. Neck supple without JVD, lymphadenopathy, or bruit. Respiratory: clear to ascultation bilaterally. No rales/rhonic/wheezes. Cardiovascular: Regular rate and rhythm, normal S1-S2 upon ascultation. No murmurs, rubs, or clicks. PMI is nondisplaced, capillary refill less than 3 second. Abdomen: Soft, round, no pulsatile masses, nondistended and nontender. No rebound, no guarding. No CVA tenderness, no hepatosplenomegaly. Bowel sounds present to all four quadrants. No high pitch or tinkling sounds, resonant to percussion. Extremities: No cyanosis, clubbing, or edema present. Pulses are palpable 2/2. Active ROM to all four extremities. Neuro: Alert and orientated x 4. PERRLA. Cranial nerves 2-12 intact without focal deficit. Skin: Warm, dry, and intact, without rash, erythema, or lesion. Psych: pleasant, cooperative, normal speech, normal affect, no hallucinations, no dysarthia Const: General: comfortable and no acute distress Other: A&O x3 HENMT: Mouth: Yes dry mucous membranes Eyes: Pupils: Equal, round and reactive pupils present Neck: Neck: supple Resp: Effort & Inspection: normal respiratory effort Auscultation: clear to auscultation bilaterally Cardio: Rate: regular rate Rhythm: regular rhythm : General: Yes bladder normal to palpation Neuro: Cranial nerves: Yes Equal, round and reactive pupils present Motor exam (neuro): 5/5 motor strength present throughout Sensory Exam: normal sensation Extrem: General: no edema Psych: Mental Status: mental status grossly normal Objective Data Vital Signs Vital Signs: Vital Signs - 24 hr 06/18/24 08:00 06/18/24 08:30 06/18/24 12:05 Temperature 97.1 F L Pulse Rate 64 71 Respiratory Rate 19 Blood Pressure 111/48 L Pulse Oximetry 100 100 Oxygen Delivery Room Air Room Air 06/18/24 12:48 06/18/24 12:58 06/18/24 13:08 Temperature Pulse Rate 72 74 81 Respiratory Rate 12 20 20 Blood Pressure 97/53 L 93/41 L 121/56 L Pulse Oximetry 99 99 100 Oxygen Delivery Room Air Room Air Room Air 06/18/24 14:00 06/18/24 20:00 06/18/24 20:37 Temperature 96.8 F L 98.1 F Pulse Rate 79 69 69 Respiratory Rate 14 18 Blood Pressure 136/71 155/57 H Pulse Oximetry 100 100 Oxygen Delivery 06/19/24 00:00 06/19/24 04:00 06/19/24 05:58 Temperature 97.7 F Pulse Rate 68 64 61 Respiratory Rate 16 Blood Pressure 147/71 H Pulse Oximetry 100 Oxygen Delivery Intake/Output Intake/Output: Intake & Output 06/16/24 06/17/24 06/18/24 06/19/24 23:59 23:59 23:59 23:59 Intake Total 2221.4 2160.7 1050 0 Output Total 1975 1600 1350 350 Balance 246.4 560.7 -300 -350 Meds/Results Medications: Active Medications Generic Name Dose Route Start Last Admin Trade Name Freq PRN Reason Stop Dose Admin Acetaminophen 650 mg 06/13/24 20:39 Acetaminophen 325 Mg Tablet PO Q4H PRN Mild Pain (1-3) or Fever Dextrose 12.5 gm 06/15/24 13:05 Dextrose 50% 25 Gm/50 Ml Syringe IV PUSH PRN PRN Hypoglycemia Protocol Fluticasone Propionate 2 spray 06/14/24 16:15 06/18/24 11:05 Fluticasone Propionate 0.05% Na Spr 16 Gm Btl (*Bkc) NASAL 2 spray QAM [facility] Administration Glucagon 1 mg 06/15/24 13:05 Glucagon For Inj 1 Mg Vial IM PRN PRN Hypoglycemia Protocol Glucose 15 gm 06/15/24 13:05 Glucose Oral Gel 15 Gm Of Glucse In 37.5 Gm Tube PO PRN PRN Hypoglycemia Protocol Dextrose 1,000 mls @ 100 mls/hr 06/15/24 13:05 Dextrose 5% 1,000 Ml IVPB PRN PRN Hypoglycemia Protocol Loratadine 10 mg 06/15/24 09:00 06/16/24 09:00 Loratadine 10 Mg Tablet PO Not Given QAM [facility] Megestrol Acetate 40 mg 06/14/24 17:00 06/18/24 21:20 Megestrol Acetate (*Chemo) 40 Mg Tablet PO Not Given QID [facility] Pantoprazole Sodium 40 mg 06/19/24 09:00 Pantoprazole 40 Mg Tablet PO QAM [facility] Tramadol HCl 50 mg 06/13/24 20:39 06/19/24 00:48 Tramadol Hcl (*Crx) 50 Mg Tablet PO 50 mg Q4H PRN Administration Pain Rated 4-6 Radiology Results: ITS Impressions Head CT 06/13/24 15:23 IMPRESSION: No acute intracranial process. Cervical Spine CT 06/13/24 15:27 IMPRESSION: No acute fracture or traumatic malalignment in the cervical spine. Multiple thyroid nodules, consider nonemergent, outpatient thyroid ultrasound for further characterization. Chest X-Ray 06/13/24 15:39 IMPRESSION: Right lower lung opacities may represent infection/aspiration. Trace left pleural fluid collection versus chronic pleural blunting Elbow X-Ray 06/13/24 15:40 IMPRESSION: Large elbow joint effusion, as can be seen with occult radial head fracture. Shoulder X-Ray 06/13/24 15:40 IMPRESSION: Significant degenerative disease, without acute fracture or anterior dislocation. Thyroid Ultrasound 06/17/24 08:04 IMPRESSION: 1. Multinodular goiter including a 2.0 cm Ti RADS 5 left thyroid nodule and a 2.4 cm TI-RADS 4 right thyroid nodule. These would meet criteria for ultrasound guided biopsy although need for biopsy although given patient age, need for biopsy may depend on clinical considerations. Modified Barium Swallow 06/17/24 09:50 IMPRESSION: Pharyngeal dysphagia with laryngeal penetration and silent aspiration. Please correlate with speech pathologist findings and specific feeding recommendations. Labs Labs: Laboratory Results - last 24 hr 06/18/24 06/18/24 06/18/24 11:46 14:21 17:56 WBC RBC Hgb Hct MCV MCH MCHC RDW Plt Count MPV Immature Gran % (Auto) Neut % (Auto) Lymph % (Auto) [place] % (Auto) Eos % (Auto) Baso % (Auto) Lymph # (Auto) [place] # (Auto) Eos # (Auto) Baso # (Auto) Abs Immat Gran (auto) Absolute Neuts (auto) Absolute Nucleated RBC Nucleated RBC % Sodium Potassium Chloride Carbon Dioxide Anion Gap BUN Creatinine Estim Creat Clear Calc Estimated GFR Glucose POC Capillary Glucose 114 H 105 Calcium Phosphorus Total Bilirubin AST ALT Alkaline Phosphatase Total Protein Albumin Triglycerides 57 06/19/24 06/19/24 00:07 05:32 WBC 5.7 RBC 4.38 L Hgb 12.0 L Hct 37.7 L MCV 86.1 MCH 27.4 MCHC 31.8 L RDW 13.5 Plt Count 282 MPV 9.2 Immature Gran % (Auto) 0.4 Neut % (Auto) 60.4 Lymph % (Auto) 24.6 [place] % (Auto) 11.6 H Eos % (Auto) 2.5 Baso % (Auto) 0.5 Lymph # (Auto) 1.40 [place] # (Auto) 0.7 H Eos # (Auto) 0.1 Baso # (Auto) 0.0 Abs Immat Gran (auto) 0.02 Absolute Neuts (auto) 3.4 Absolute Nucleated RBC 0.000 Nucleated RBC % 0.0 Sodium 135 L Potassium 4.5 Chloride 101 Carbon Dioxide 28 Anion Gap 6 BUN 26 H Creatinine 0.83 Estim Creat Clear Calc 41 Estimated GFR > 60 Glucose 114 H POC Capillary Glucose 106 H Calcium 8.9 Phosphorus 3.1 Total Bilirubin 0.5 AST 38 ALT 27 Alkaline Phosphatase 57 Total Protein 7.0 Albumin 3.3 L Triglycerides Quality VTE Prophylaxis VTE prophylaxis: mechanical ordered
[2024-06-19 09:00] LABS: Glucose Point of Care 99 mg/dl (65-105)
[2024-06-19] MEDS: FLUTICASONE PROPIONATE 0.05% NA SPR 16 GM BTL (*BKC) 2 SPRAY NASAL (09:58)
[2024-06-19] MEDS: LORATADINE 10 MG TABLET PO (09:58)
--- NOTE | 2024-06-19 11:04 | PCDIET ---
Nutrition note: PEG in place. Tube feeding running Jevity 1.5 @ 50 ml/h with goal rate 55 ml/h. Flushes 150 ml q 4 hours. Tolerating tube feeding well with minimal residuals. Last BM 06/16/24. TF at goal with flushes provides 1815 kcal, 77 g protein, 1820 ml total water. Adequate for needs. Continue to monitor.
[2024-06-19 12:19] LABS: Glucose Point of Care 125 mg/dl (65-105)
[2024-06-19] MEDS: MUPIROCIN 2% OINT 22 GM TUBE 1 APPLIC EACH NARE ×2 (14:00→20:58)
[2024-06-19] MEDS: SODIUM CHLORIDE 0.9% IV 1,000 ML 100 ML IV CONT (15:00)
--- NOTE | 2024-06-19 16:56 | WPDGIPROGNO ---
Progress Note: A&P Assessment and Plan (1) Dysphagia: Code(s): R13.10 - Dysphagia, unspecified Status: Acute Assessment and Plan: g-tube in place and tolerating tube feeding will follow as needed (2) Severe protein-calorie malnutrition: Code(s): E43 - Unspecified severe protein-calorie malnutrition Status: Acute (3) Adult failure to thrive: Code(s): R62.7 - Adult failure to thrive Status: Acute (4) Fall: Qualifiers: Encounter type: initial encounter Qualified Code(s): W19.XXXA - Unspecified fall, initial encounter Code(s): W19.XXXA - Unspecified fall, initial encounter Status: Acute (5) Memory loss: Code(s): R41.3 - Other amnesia Status: Acute Subjective Date/time seen: 06/19/24 16:56 Interval history: tolerating tube feeding at 50ml/h grand daugther at bedside no new issues Review of Systems Review of Systems: All systems reviewed & are unremarkable except as noted in HPI and below Exam Const: General: comfortable Other: malnourished HENMT: Face/Nose/Sinus: Normal nares present Eyes: Sclera: sclerae normal Neck: Neck: supple Resp: Effort & Inspection: normal respiratory effort Cardio: Rate: regular rate GI: GI Palp: Yes Soft to palpation and No Tenderness to palpation present (GI) Auscultation: normal bowel sounds Other: g-tube in place Skin: General skin exam: normal color Neuro: Speech: normal speech Extrem: General: normal to inspection Psych: Attitude: not belligerent Objective Data Vital Signs Vital Signs: Vital Signs - 24 hr 06/18/24 20:00 06/18/24 20:37 06/19/24 00:00 Temperature 98.1 F Pulse Rate 69 69 68 Respiratory Rate 18 Blood Pressure 155/57 H Pulse Oximetry 100 06/19/24 04:00 06/19/24 05:58 06/19/24 08:00 Temperature 97.7 F Pulse Rate 64 61 62 Respiratory Rate 16 Blood Pressure 147/71 H Pulse Oximetry 100 06/19/24 12:00 06/19/24 12:00 06/19/24 14:00 Temperature 97.2 F L Pulse Rate 52 L 87 76 Respiratory Rate 20 Blood Pressure 94/62 L 94/52 L Pulse Oximetry 96 06/19/24 16:00 Temperature Pulse Rate 78 Respiratory Rate Blood Pressure Pulse Oximetry Intake/Output Intake/Output: Intake & Output 06/16/24 06/17/24 06/18/24 06/19/24 23:59 23:59 23:59 23:59 Intake Total 2221.4 2160.7 1050 0 Output Total 1975 1600 1350 350 Balance 246.4 560.7 -300 -350 Meds/Results Medications: Active Medications Generic Name Dose Route Start Last Admin Trade Name Freq PRN Reason Stop Dose Admin Acetaminophen 650 mg 06/13/24 20:39 Acetaminophen 325 Mg Tablet PO Q4H PRN Mild Pain (1-3) or Fever Dextrose 12.5 gm 06/15/24 13:05 Dextrose 50% 25 Gm/50 Ml Syringe IV PUSH PRN PRN Hypoglycemia Protocol Fluticasone Propionate 2 spray 06/14/24 16:15 06/19/24 09:58 Fluticasone Propionate 0.05% Na Spr 16 Gm Btl (*Bkc) NASAL 2 spray QAM [facility] Administration Glucagon 1 mg 06/15/24 13:05 Glucagon For Inj 1 Mg Vial IM PRN PRN Hypoglycemia Protocol Glucose 15 gm 06/15/24 13:05 Glucose Oral Gel 15 Gm Of Glucse In 37.5 Gm Tube PO PRN PRN Hypoglycemia Protocol Dextrose 1,000 mls @ 100 mls/hr 06/15/24 13:05 Dextrose 5% 1,000 Ml IVPB PRN PRN Hypoglycemia Protocol Sodium Chloride 1,000 mls @ 100 mls/hr 06/19/24 14:00 06/19/24 15:00 Normal Saline Iv IV CONT 100 mls/hr .Q10H [facility] Administration Loratadine 10 mg 06/15/24 09:00 06/19/24 09:58 Loratadine 10 Mg Tablet PO 10 mg QAM [facility] Administration Megestrol Acetate 40 mg 06/14/24 17:00 06/19/24 16:54 Megestrol Acetate (*Chemo) 40 Mg Tablet PO Not Given QID [facility] Mupirocin 1 applic 06/19/24 11:30 06/19/24 14:00 Mupirocin 2% Oint 22 Gm Tube EACH NARE 06/24/24 23:59 1 applic Q12HR [facility] Administration Pantoprazole Sodium 40 mg 06/19/24 09:00 06/19/24 09:29 Pantoprazole 40 Mg Tablet PO Not Given QAM [facility] Tramadol HCl 50 mg 06/13/24 20:39 06/19/24 00:48 Tramadol Hcl (*Crx) 50 Mg Tablet PO 50 mg Q4H PRN Administration Pain Rated 4-6 Radiology Results: ITS Impressions Head CT 06/13/24 15:23 IMPRESSION: No acute intracranial process. Cervical Spine CT 06/13/24 15:27 IMPRESSION: No acute fracture or traumatic malalignment in the cervical spine. Multiple thyroid nodules, consider nonemergent, outpatient thyroid ultrasound for further characterization. Chest X-Ray 06/13/24 15:39 IMPRESSION: Right lower lung opacities may represent infection/aspiration. Trace left pleural fluid collection versus chronic pleural blunting Elbow X-Ray 06/13/24 15:40 IMPRESSION: Large elbow joint effusion, as can be seen with occult radial head fracture. Shoulder X-Ray 06/13/24 15:40 IMPRESSION: Significant degenerative disease, without acute fracture or anterior dislocation. Thyroid Ultrasound 06/17/24 08:04 IMPRESSION: 1. Multinodular goiter including a 2.0 cm Ti RADS 5 left thyroid nodule and a 2.4 cm TI-RADS 4 right thyroid nodule. These would meet criteria for ultrasound guided biopsy although need for biopsy although given patient age, need for biopsy may depend on clinical considerations. Modified Barium Swallow 06/17/24 09:50 IMPRESSION: Pharyngeal dysphagia with laryngeal penetration and silent aspiration. Please correlate with speech pathologist findings and specific feeding recommendations. Labs Labs: Laboratory Results - last 24 hr 06/18/24 06/19/24 06/19/24 17:56 00:07 05:32 WBC 5.7 RBC 4.38 L Hgb 12.0 L Hct 37.7 L MCV 86.1 MCH 27.4 MCHC 31.8 L RDW 13.5 Plt Count 282 MPV 9.2 Immature Gran % (Auto) 0.4 Neut % (Auto) 60.4 Lymph % (Auto) 24.6 [place] % (Auto) 11.6 H Eos % (Auto) 2.5 Baso % (Auto) 0.5 Lymph # (Auto) 1.40 [place] # (Auto) 0.7 H Eos # (Auto) 0.1 Baso # (Auto) 0.0 Abs Immat Gran (auto) 0.02 Absolute Neuts (auto) 3.4 Absolute Nucleated RBC 0.000 Nucleated RBC % 0.0 Sodium 135 L Potassium 4.5 Chloride 101 Carbon Dioxide 28 Anion Gap 6 BUN 26 H Creatinine 0.83 Estim Creat Clear Calc 41 Estimated GFR > 60 Glucose 114 H POC Capillary Glucose 105 106 H Calcium 8.9 Phosphorus 3.1 Total Bilirubin 0.5 AST 38 ALT 27 Alkaline Phosphatase 57 Total Protein 7.0 Albumin 3.3 L 06/19/24 06/19/24 05:39 12:13 WBC RBC Hgb Hct MCV MCH MCHC RDW Plt Count MPV Immature Gran % (Auto) Neut % (Auto) Lymph % (Auto) [place] % (Auto) Eos % (Auto) Baso % (Auto) Lymph # (Auto) [place] # (Auto) Eos # (Auto) Baso # (Auto) Abs Immat Gran (auto) Absolute Neuts (auto) Absolute Nucleated RBC Nucleated RBC % Sodium Potassium Chloride Carbon Dioxide Anion Gap BUN Creatinine Estim Creat Clear Calc Estimated GFR Glucose POC Capillary Glucose 99 125 H Calcium Phosphorus Total Bilirubin AST ALT Alkaline Phosphatase Total Protein Albumin
[2024-06-19 23:45] LABS: Glucose Point of Care 116 mg/dl (65-105)
[2024-06-20] VITALS (9 sets, daily range): BP systolic 132–152; BP diastolic 47–74; PULSE 60–73; RESP 12–20; TEMP 36.1–37.2; O2SAT 98–100
[2024-06-20] MEDS: SODIUM CHLORIDE 0.9% IV 1,000 ML 100 ML IV CONT (01:03)
[2024-06-20 05:08] LABS: Glucose Point of Care 130 mg/dl (65-105)
[2024-06-20 06:21] LABS: Basophils Percent Auto 0.9 % (0.2-1.2); Eosinophils Absolute Auto 0.1 K/mm3 (0-0.3); Eosinophils Percent Auto 1.9 % (0-4.4); Hematocrit 34.6 % (42.0-52.0); Hemoglobin 10.8 g/dL (14.0-18.0); Immature Granulocyte Absolute 0.01 K/mm3 (0.00-0.031); Immature Granulocyte Percent A 0.2 % (0-0.5); Lymphocytes Absolute Auto 1.32 K/mm3 (0.9-3.2); Lymphocytes Percent Auto 28.3 % (18.3-44.2); Mean Corpuscular HGB Conc 31.2 g/dl (32-36); Mean Corpuscular Hemoglobin 27.3 pg (26-34); Mean Corpuscular Volume 87.4 fl (80-100); Mean Platelet Volume 9.6 fl (7.4-10.4); Monocytes Absolute Auto 0.6 K/mm3 (0.1-0.6); Monocytes Percent Auto 13.5 % (2.6-8.5); Neutrophils Absolute Auto 2.6 K/mm3 (1.3-6.7); Neutrophils Percent Auto 55.2 % (45.5-73.1); Platelet Count Result 282 k/mm3 (150-375); Red Blood Count 3.96 M/mm3 (4.6-6.20); Red Cell Distribution Width 13.5 % (11.5-14.5); White Blood Count 4.7 K/mm3 (4.5-10.0)
[2024-06-20 06:39] LABS: Alanine Aminotransferase 36 U/L (6-50); Alkaline Phosphatase 62 U/L (38-126); Anion Gap 4 mmol/L (4-12); Aspartate Amino Transferase 39 U/L (17-59); Bilirubin,Total 0.3 mg/dL (0.2-1.3); Blood Urea Nitrogen 23 mg/dL (9-20); Calcium 8.5 mg/dL (8.4-10.2); Carbon Dioxide 27 mmol/L (22-30); Chloride 105 mmol/L (98-107); Estimated CRCL calculation 46 ml/min; Estimated Glomerular Filt Rate > 60; Glucose 104 mg/dL (65-110); Magnesium 1.9 mg/dL (1.6-2.3); Phosphorus 2.6 mg/dL (2.5-4.5); Potassium 4.2 mmol/L (3.4-5.0); Sodium 136 mmol/L (137-145)
--- NOTE | 2024-06-20 08:33 | PM.DS ---
DS: Admitting Diagnosis Discharge Date 06/20/2024 Admitting Diagnosis Fall Aspiration Pneumonia DS: Discharge Diagnosis Discharge Diagnosis (1) Fall: Qualifiers: Encounter type: initial encounter Qualified Code(s): W19.XXXA - Unspecified fall, initial encounter Code(s): W19.XXXA - Unspecified fall, initial encounter Status: Acute (2) Aspiration pneumonia: Code(s): J69.0 - Pneumonitis due to inhalation of food and vomit Status: Acute (3) Dehydration: Code(s): E86.0 - Dehydration Status: Acute (4) Severe protein-calorie malnutrition: Code(s): E43 - Unspecified severe protein-calorie malnutrition Status: Acute (5) Thyroid nodule: Code(s): E04.1 - Nontoxic single thyroid nodule Status: Acute DS: Summary Hospital Course Reason for hospitalization: Fall Hospital Course: Mr. 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 He presents to [place] [facility] with increasing generalized weakness and fall. He has been reluctant to have home health or be placed in a senior living however his family is concerned. He walks about 2 miles on most days and does not use any assistive ambulatory devices. He reports about 6 months ago began to fall more often. His falls are arbitrary in nature, they can be at the end of a 2 mi walk or right when he gets out of bed to get up in the morning. He reports a sensation of weakness and dizziness and his body then it gives out but he does not have loss of consciousness. No sensation of spinning. No chest pain, no shortness of breath. No specific weakness, no change in vision. No seizure activity. Feels he may be dehydrated although this is on the account of his family reporting so. ER evaluation did not reveal remarkable vital signs or laboratory workup aside from right lower lung opacities. He was given Zosyn 4.5 [address]1. Head CT, cervical spine CT, chest x-ray, elbow x-ray, shoulder x-ray without any acute bony abnormalities aside from left large elbow joint effusion. Time Spent with Patient Time attestation: Total time spent providing and/or coordinating discharge services: 45 Exam Narrative: General: Chronically ill, malnourished, appears stated age. [place] HEENT: normocephalic, atraumatic. Mucous membranes moist. EOMI, PERRLA, bilateral sclera anicteric, no conjunctival injection. Neck supple without JVD, lymphadenopathy, or bruit. Respiratory: clear to ascultation bilaterally. No rales/rhonic/wheezes. Cardiovascular: Regular rate and rhythm, normal S1-S2 upon ascultation. No murmurs, rubs, or clicks. PMI is nondisplaced, capillary refill less than 3 second. Abdomen: Soft, round, no pulsatile masses, nondistended and nontender. No rebound, no guarding. No CVA tenderness, no hepatosplenomegaly. Bowel sounds present to all four quadrants. No high pitch or tinkling sounds, resonant to percussion. Extremities: No cyanosis, clubbing, or edema present. Pulses are palpable 2/2. Active ROM to all four extremities. Neuro: Alert and orientated x 4. PERRLA. Cranial nerves 2-12 intact without focal deficit. Skin: Warm, dry, and intact, without rash, erythema, or lesion. Psych: pleasant, cooperative, normal speech, normal affect, no hallucinations, no dysarthia Const: General: comfortable and no acute distress Other: A&O x3 HENMT: Mouth: Yes dry mucous membranes Eyes: Pupils: Equal, round and reactive pupils present Neck: Neck: supple Resp: Effort & Inspection: normal respiratory effort Auscultation: clear to auscultation bilaterally Cardio: Rate: regular rate Rhythm: regular rhythm : General: Yes bladder normal to palpation Neuro: Cranial nerves: Yes Equal, round and reactive pupils present Motor exam (neuro): 5/5 motor strength present throughout Sensory Exam: normal sensation Extrem: General: no edema Psych: Mental Status: mental status grossly normal DS: Data Data Completed and Pending Labs on day of discharge: Labs from last 24 hours 06/20/24 06/20/24 06/20/24 05:31 05:30 05:03 WBC 4.7 RBC 3.96 L Hgb 10.8 L Hct 34.6 L MCV 87.4 MCH 27.3 MCHC 31.2 L RDW 13.5 Plt Count 282 MPV 9.6 Immature Gran % (Auto) 0.2 Neut % (Auto) 55.2 Lymph % (Auto) 28.3 [place] % (Auto) 13.5 H Eos % (Auto) 1.9 Baso % (Auto) 0.9 Lymph # (Auto) 1.32 [place] # (Auto) 0.6 Eos # (Auto) 0.1 Baso # (Auto) 0.0 Abs Immat Gran (auto) 0.01 Absolute Neuts (auto) 2.6 Absolute Nucleated RBC 0.000 Nucleated RBC % 0.0 Sodium 136 L Potassium 4.2 Chloride 105 Carbon Dioxide 27 Anion Gap 4 BUN 23 H Creatinine 0.73 Estim Creat Clear Calc 46 Estimated GFR > 60 Glucose 104 POC Capillary Glucose 130 H Calcium 8.5 Phosphorus 2.6 Magnesium 1.9 Total Bilirubin 0.3 AST 39 ALT 36 Alkaline Phosphatase 62 Total Protein 6.0 L Albumin 3.0 L 06/19/24 06/19/24 06/19/24 23:43 12:13 05:39 WBC RBC Hgb Hct MCV MCH MCHC RDW Plt Count MPV Immature Gran % (Auto) Neut % (Auto) Lymph % (Auto) [place] % (Auto) Eos % (Auto) Baso % (Auto) Lymph # (Auto) [place] # (Auto) Eos # (Auto) Baso # (Auto) Abs Immat Gran (auto) Absolute Neuts (auto) Absolute Nucleated RBC Nucleated RBC % Sodium Potassium Chloride Carbon Dioxide Anion Gap BUN Creatinine Estim Creat Clear Calc Estimated GFR Glucose POC Capillary Glucose 116 H 125 H 99 Calcium Phosphorus Magnesium Total Bilirubin AST ALT Alkaline Phosphatase Total Protein Albumin Discharge Plan Discharge Attending physician on discharge: Kan Andrade Discharging Clinician: Kan Andrade Anticipated Discharge Date/Time: 06/20/24 08:31 Patient Disposition: SNF Activity: as tolerated Diet: as tolerated Discharge Instructions: Discharge disposition: Stable Take medications as prescribed Monitor blood pressures Take caution while standing, rising, or moving Change positions slowly taking a break between each position change If you standing feel dizzy sit back down and take a break Encouraged to continue with yearly vaccinations Return to the emergency department if he developed sudden shortness of breath, chest pain, nausea, vomiting, upset stomach or intractable diarrhea Return to the emergency department if you develop fever greater than 101.5 Follow-up with the primary care physician within 1-2 weeks Thank you for [facility] for your healthcare needs Patient Language: [place] Stand Alone Forms: General Discharge Information Follow-up/Referrals: Anjelica Horner MD [Primary Care Provider] - Discharge Medications: Continued bisacodyl [Dulcolax (bisacodyl)] 5 mg tablet,delayed release (DR/EC) 5 mg PO BID guaifenesin [Mucinex] 600 mg tablet extended release 12hr 600 mg PO DAILY Date of admission: 06/15/24 15:10 Primary Care Provider: Anjelica Horner Admitting Provider: Nisa Carballo Attending physician on admission: Kan Andrade Condition: Stable Quality VTE Prophylaxis VTE prophylaxis: mechanical ordered
[2024-06-20] MEDS: MUPIROCIN 2% OINT 22 GM TUBE 1 APPLIC EACH NARE ×2 (09:05→21:04)
[2024-06-20] MEDS: LORATADINE 10 MG TABLET PO (09:10)
[2024-06-20] MEDS: FLUTICASONE PROPIONATE 0.05% NA SPR 16 GM BTL (*BKC) 2 SPRAY NASAL (09:10)
--- NOTE | 2024-06-20 11:21 | P.PNIM_ITS ---
Progress Note: A&P Assessment and Plan (1) Fall: Qualifiers: Encounter type: initial encounter Qualified Code(s): W19.XXXA - Unspecified fall, initial encounter Code(s): W19.XXXA - Unspecified fall, initial encounter Status: Acute Assessment and Plan: * Head CT was negative for any acute intracranial process * Cervical spine CT was negative for any acute fracture or traumatic malalignment in the cervical spine * Left elbow x-ray showed large elbow joint effusion * Right shoulder x-ray showed significant degenerative disease without acute fracture or dislocation * Continue fall precautions * PT OT evaluate and treat (2) Aspiration pneumonia: Code(s): J69.0 - Pneumonitis due to inhalation of food and vomit Status: Acute Assessment and Plan: * Chest x-ray showed right lower lung opacity * Modified Barium failed * PPN and NPO * Plan for G-tube placement * hypoglycemic protocol in place * Check blood sugars every 6 hours * Completed Augmentin and Azithromycin (3) Dehydration: Code(s): E86.0 - Dehydration Status: Acute Assessment and Plan: * Patient was given IV fluids while in the ED * continue PPN and lipids * Continue NPO status (4) Severe protein-calorie malnutrition: Code(s): E43 - Unspecified severe protein-calorie malnutrition Status: Acute Assessment and Plan: * BMI 16.9, 49 kg * Daughter and patient agreeable to G-tube * GI consulted for G-tube placement today Dietary is recommendations Jevity 1.5 @ 20ml/hr to advance by 10ml/hr q 4 hrs as tolerated, to a goal rate of 55ml/hr over 22 hrs. 150ml flushes q 4 hrs for an additional 900ml free water per day. *Bolus conversion: Jevity 1.5 -300ml bolus QID, 150ml flush q 4 hrs (5) Thyroid nodule: Code(s): E04.1 - Nontoxic single thyroid nodule Status: Acute Assessment and Plan: * CT of the cervical spine shows multiple thyroid nodules * TSH 0.854 * Will order thyroid US while inpatient considering patient will be her at least until Monday. * Thyroid US shown multinodular goiter with recommendations for ultrasound guided biopsy * Patient should follow-up outpatient for biopsy as this is not inpatient procedure Time Spent With Patient Time: Subjective Date/time seen: 06/20/24 11:21 Interval history: This is an 83-year-old male with a significant past medical history of vocal cord dysfunction, gout, dyslipidemia, prostate cancer status post radiation, hearing loss who presented to the hospital for evaluation of multiple falls. Patient was given a dose of Zosyn while in the ED for concerns for pneumonia. 06/20/2024 Plan was to discharge today given improving symptoms and blood work. Orthostatic vital signs were obtained and pt was found to be Orthostatic with a drop in BP from 130s/60s to 90s/50s and was symptomatic. He denies any chest pain, SOB, n/v, or abdominal pain at rest. Will hold off on discharge at this time, add compression stockings and midodrine, will assess vitals tomorrow with hopeful discharge tomorrow. Review of Systems Review of Systems: All systems reviewed & are unremarkable except as noted in HPI and below (HPI) Exam Narrative: General: Chronically ill, malnourished, appears stated age. [id number] HEENT: normocephalic, atraumatic. Mucous membranes moist. EOMI, PERRLA, bilateral sclera anicteric, no conjunctival injection. Neck supple without JVD, lymphadenopathy, or bruit. Respiratory: clear to ascultation bilaterally. No rales/rhonic/wheezes. Cardiovascular: Regular rate and rhythm, normal S1-S2 upon ascultation. No murmurs, rubs, or clicks. PMI is nondisplaced, capillary refill less than 3 second. Abdomen: Soft, round, no pulsatile masses, nondistended and nontender. No rebound, no guarding. No CVA tenderness, no hepatosplenomegaly. Bowel sounds present to all four quadrants. No high pitch or tinkling sounds, resonant to percussion. Extremities: No cyanosis, clubbing, or edema present. Pulses are palpable 2/2. Active ROM to all four extremities. Neuro: Alert and orientated x 4. PERRLA. Cranial nerves 2-12 intact without focal deficit. Skin: Warm, dry, and intact, without rash, erythema, or lesion. Psych: pleasant, cooperative, normal speech, normal affect, no hallucinations, no dysarthia Const: Other: A&O x3 Objective Data Vital Signs Vital Signs: Vital Signs - 24 hr 06/19/24 12:00 06/19/24 12:00 06/19/24 14:00 Temperature 97.2 F L Pulse Rate 52 L 87 76 Respiratory Rate 20 Blood Pressure 94/62 L 94/52 L Pulse Oximetry 96 06/19/24 16:00 06/19/24 20:00 06/19/24 20:57 Temperature 97.3 F L Pulse Rate 78 70 60 Respiratory Rate 13 Blood Pressure 137/49 L Pulse Oximetry 98 06/20/24 00:00 06/20/24 04:00 06/20/24 06:00 Temperature 97.0 F L Pulse Rate 65 60 69 Respiratory Rate 12 Blood Pressure 144/47 H Pulse Oximetry 98 06/20/24 08:00 Temperature Pulse Rate 66 Respiratory Rate Blood Pressure Pulse Oximetry Intake/Output Intake/Output: Intake & Output 06/17/24 06/18/24 06/19/24 06/20/24 23:59 23:59 23:59 23:59 Intake Total 2160.7 1050 0 1000 Output Total 1600 1350 850 700 Balance 560.7 -300 -850 300 Meds/Results Medications: Active Medications Generic Name Dose Route Start Last Admin Trade Name Freq PRN Reason Stop Dose Admin Acetaminophen 650 mg 06/13/24 20:39 Acetaminophen 325 Mg Tablet PO Q4H PRN Mild Pain (1-3) or Fever Dextrose 12.5 gm 06/15/24 13:05 Dextrose 50% 25 Gm/50 Ml Syringe IV PUSH PRN PRN Hypoglycemia Protocol Fluticasone Propionate 2 spray 06/14/24 16:15 06/20/24 09:10 Fluticasone Propionate 0.05% Na Spr 16 Gm Btl (*Bkc) NASAL 2 spray QAM PORTILLO Administration Glucagon 1 mg 06/15/24 13:05 Glucagon For Inj 1 Mg Vial IM PRN PRN Hypoglycemia Protocol Glucose 15 gm 06/15/24 13:05 Glucose Oral Gel 15 Gm Of Glucse In 37.5 Gm Tube PO PRN PRN Hypoglycemia Protocol Dextrose 1,000 mls @ 100 mls/hr 06/15/24 13:05 Dextrose 5% 1,000 Ml IVPB PRN PRN Hypoglycemia Protocol Sodium Chloride 1,000 mls @ 100 mls/hr 06/19/24 14:00 06/20/24 01:03 Normal Saline Iv IV CONT 100 mls/hr .Q10H PORTILLO Administration Loratadine 10 mg 06/15/24 09:00 06/20/24 09:10 Loratadine 10 Mg Tablet PO 10 mg QAM PORTILLO Administration Megestrol Acetate 40 mg 06/14/24 17:00 06/20/24 09:11 Megestrol Acetate (*Chemo) 40 Mg Tablet PO Not Given QID PORTILLO Mupirocin 1 applic 06/19/24 11:30 06/19/24 20:58 Mupirocin 2% Oint 22 Gm Tube EACH NARE 06/24/24 23:59 1 applic Q12HR PORTILLO Administration Pantoprazole Sodium 40 mg 06/19/24 09:00 06/20/24 10:21 Pantoprazole 40 Mg Tablet PO Not Given QAM PORTILLO Tramadol HCl 50 mg 06/13/24 20:39 06/19/24 00:48 Tramadol Hcl (*Crx) 50 Mg Tablet PO 50 mg Q4H PRN Administration Pain Rated 4-6 Radiology Results: ITS Impressions Head CT 06/13/24 15:23 IMPRESSION: No acute intracranial process. Cervical Spine CT 06/13/24 15:27 IMPRESSION: No acute fracture or traumatic malalignment in the cervical spine. Multiple thyroid nodules, consider nonemergent, outpatient thyroid ultrasound for further characterization. Chest X-Ray 06/13/24 15:39 IMPRESSION: Right lower lung opacities may represent infection/aspiration. Trace left pleural fluid collection versus chronic pleural blunting Elbow X-Ray 06/13/24 15:40 IMPRESSION: Large elbow joint effusion, as can be seen with occult radial head fracture. Shoulder X-Ray 06/13/24 15:40 IMPRESSION: Significant degenerative disease, without acute fracture or anterior dislocation. Thyroid Ultrasound 06/17/24 08:04 IMPRESSION: 1. Multinodular goiter including a 2.0 cm Ti RADS 5 left thyroid nodule and a 2.4 cm TI-RADS 4 right thyroid nodule. These would meet criteria for ultrasound guided biopsy although need for biopsy although given patient age, need for biopsy may depend on clinical considerations. Modified Barium Swallow 06/17/24 09:50 IMPRESSION: Pharyngeal dysphagia with laryngeal penetration and silent aspiration. Please correlate with speech pathologist findings and specific feeding recommendations. Labs Labs: Laboratory Results - last 24 hr 06/19/24 06/19/24 06/20/24 12:13 23:43 05:03 WBC RBC Hgb Hct MCV MCH MCHC RDW Plt Count MPV Immature Gran % (Auto) Neut % (Auto) Lymph % (Auto) [place] % (Auto) Eos % (Auto) Baso % (Auto) Lymph # (Auto) [place] # (Auto) Eos # (Auto) Baso # (Auto) Abs Immat Gran (auto) Absolute Neuts (auto) Absolute Nucleated RBC Nucleated RBC % Sodium Potassium Chloride Carbon Dioxide Anion Gap BUN Creatinine Estim Creat Clear Calc Estimated GFR Glucose POC Capillary Glucose 125 H 116 H 130 H Calcium Phosphorus Magnesium Total Bilirubin AST ALT Alkaline Phosphatase Total Protein Albumin 06/20/24 06/20/24 05:30 05:31 WBC 4.7 RBC 3.96 L Hgb 10.8 L Hct 34.6 L MCV 87.4 MCH 27.3 MCHC 31.2 L RDW 13.5 Plt Count 282 MPV 9.6 Immature Gran % (Auto) 0.2 Neut % (Auto) 55.2 Lymph % (Auto) 28.3 [place] % (Auto) 13.5 H Eos % (Auto) 1.9 Baso % (Auto) 0.9 Lymph # (Auto) 1.32 [place] # (Auto) 0.6 Eos # (Auto) 0.1 Baso # (Auto) 0.0 Abs Immat Gran (auto) 0.01 Absolute Neuts (auto) 2.6 Absolute Nucleated RBC 0.000 Nucleated RBC % 0.0 Sodium 136 L Potassium 4.2 Chloride 105 Carbon Dioxide 27 Anion Gap 4 BUN 23 H Creatinine 0.73 Estim Creat Clear Calc 46 Estimated GFR > 60 Glucose 104 POC Capillary Glucose Calcium 8.5 Phosphorus 2.6 Magnesium 1.9 Total Bilirubin 0.3 AST 39 ALT 36 Alkaline Phosphatase 62 Total Protein 6.0 L Albumin 3.0 L Quality VTE Prophylaxis VTE prophylaxis: mechanical ordered
[2024-06-20 11:56] LABS: Glucose Point of Care 85 mg/dl (65-105)
[2024-06-20] MEDS: MIDODRINE HCL 2.5 MG TABLET PO ×2 (13:38→18:09)
[2024-06-20 15:33] LABS: Triglycerides 34 mg/dL (<150)
[2024-06-20 17:08] LABS: Glucose Point of Care 93 mg/dl (65-105)
[2024-06-21] VITALS (11 sets, daily range): BP systolic 77–147; BP diastolic 44–66; PULSE 63–85; RESP 18–20; TEMP 37.2–37.3; O2SAT 97–99; BMI 17.0
[2024-06-21 01:30] LABS: Glucose Point of Care 113 mg/dl (65-105)
[2024-06-21 06:47] LABS: Basophils Absolute Auto 0.1 K/mm3 (0.0-0.1); Eosinophils Percent Auto 0.6 % (0-4.4); Hematocrit 33.4 % (42.0-52.0); Hemoglobin 10.6 g/dL (14.0-18.0); Immature Granulocyte Absolute 0.01 K/mm3 (0.00-0.031); Immature Granulocyte Percent A 0.2 % (0-0.5); Lymphocytes Absolute Auto 1.09 K/mm3 (0.9-3.2); Lymphocytes Percent Auto 21.2 % (18.3-44.2); Mean Corpuscular HGB Conc 31.7 g/dl (32-36); Mean Corpuscular Hemoglobin 27.3 pg (26-34); Mean Corpuscular Volume 86.1 fl (80-100); Mean Platelet Volume 9.5 fl (7.4-10.4); Monocytes Absolute Auto 0.7 K/mm3 (0.1-0.6); Monocytes Percent Auto 13.8 % (2.6-8.5); Neutrophils Absolute Auto 3.3 K/mm3 (1.3-6.7); Neutrophils Percent Auto 63.2 % (45.5-73.1); Platelet Count Result 302 k/mm3 (150-375); Red Blood Count 3.88 M/mm3 (4.6-6.20); Red Cell Distribution Width 13.5 % (11.5-14.5); White Blood Count 5.2 K/mm3 (4.5-10.0)
[2024-06-21 06:51] LABS: Alanine Aminotransferase 31 U/L (6-50); Alkaline Phosphatase 67 U/L (38-126); Anion Gap 4 mmol/L (4-12); Aspartate Amino Transferase 32 U/L (17-59); Bilirubin,Total 0.4 mg/dL (0.2-1.3); Blood Urea Nitrogen 20 mg/dL (9-20); Calcium 8.4 mg/dL (8.4-10.2); Carbon Dioxide 27 mmol/L (22-30); Chloride 104 mmol/L (98-107); Estimated CRCL calculation 52 ml/min; Estimated Glomerular Filt Rate > 60; Glucose 118 mg/dL (65-110); Phosphorus 2.5 mg/dL (2.5-4.5); Potassium 4.1 mmol/L (3.4-5.0); Sodium 135 mmol/L (137-145)
[2024-06-21] MEDS: LORATADINE 10 MG TABLET PO (09:36)
[2024-06-21] MEDS: MIDODRINE HCL 2.5 MG TABLET PO ×2 (09:37→12:19)
[2024-06-21] MEDS: FLUTICASONE PROPIONATE 0.05% NA SPR 16 GM BTL (*BKC) 2 SPRAY NASAL (09:37)
[2024-06-21] MEDS: MUPIROCIN 2% OINT 22 GM TUBE 1 APPLIC EACH NARE ×2 (09:38→19:41)
[2024-06-21] MEDS: LACTULOSE 20 GM/30 ML UDC PO (12:19)
--- NOTE | 2024-06-21 13:17 | PCDIET ---
Tube feeding note: Bolus conversion: Jevity 1.5 -300ml bolus QID, 150ml flush q 4 hrs. Provides 1815kcals, 77g protein, 919ml free water. Recommend 150ml flushes q 4 hrs for an additional 900ml free water per day.
[2024-06-21 14:08] LABS: Uric Acid 2.2 mg/dL (3.5-8.5)
--- NOTE | 2024-06-21 15:07 | P.CONCA_ITS ---
Assessment and Plan Assessment and plan (1) Orthostatic hypotension: Code(s): I95.1 - Orthostatic hypotension Status: Acute Assessment and Plan: Difficult to assess if he truly does have orthostatic hypotension. I see one set of blood pressures documented which could represent orthostatics, however, the last two readings indicate he was sleeping which leads me to believe he was not standing. Regardless, he does not meet diagnostic criteria for orthostatic hypotension by SBP, he does meet criteria with DBP by 2mm Hg. If there are orthostatic blood pressure readings otherwise documented please let me know. Patient does endorse dizziness with standing. He has been fluid resuscitated and started on midodrine 2.5mg TID. He is also wearing TEMO hose. Other interventions would include making slower transitions from sitting to standing, and applying an abdominal binder which is not ideal given recent G tube placement. Midodrine can also be up titrated to 5 or 10mg b.i.d. if he demonstrates worsening orthostasis or continues to be symptomatic with positional changes. In the event his midodrine is increased, we would need to accept baseline hypertension which is a matter that can be discussed with the family if need be. No additional cardiac recommendations to make. Cardiology will sign off. Please call with questions. History of Present Illness History of Present Illness Consult date/time: 06/21/24 15:07 Requesting physician: Kan Andrade PA-C Consult reason: Other (orthostatic hypotension) Reason For Visit: Failure to thrive, aspiration pneumonia Narrative: Jerman Bowen is an 83-year-old male with history of syncope, hyperlipidemia, prostate cancer. This is a patient who is followed in our office by Dr. Pagan. He presented to [facility] with complaints generalized weakness and falls. At his last office visit at the beginning of June, it was noted that he had lost almost 30 lb since his previous office visit and appeared malnourished and cachectic. Because of severe malnutrition a G-tube was placed during this hospitalization. Cardiology has been consulted because of orthostatic hypotension. Review of Systems 2 Review of Systems: All systems reviewed & are unremarkable except as noted in HPI and below PMFSH Past Medical History Medical History Dysphagia Abnormal gait Vocal cord dysfunction Hearing loss Oral thrush Memory loss 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 Gout of big toe Dyslipidemia Hx of radiation therapy Prostate cancer Hx of malignant neoplasm of prostate Follows with Dr Castro Surgical History Surgical History History of colonoscopy last performed 2021 or 2022 History of loop recorder History of right inguinal hernia repair 1948 - x2 Family History Family History Father Family history of coronary artery disease Mother Family history of arthritis Grandparent Family history of coronary artery disease Other Family history of malignant neoplasm of breast in first degree relative Social History Social History Social History: Caffeine-none Has a daughter Smoking status: Never smoker Second hand tobacco smoke exposure: Yes Alcohol intake: never Substance use: never Substance use type: does not use Do You Feel Safe in your Home?: Yes Lack of Transportation: No Lack of Food: Never True Current Housing: I Have Housing Concerned About Future Housing: No Difficulty Paying Gas/Electric Bills: No Difficulty Paying for Meds: No Currently Unemployed: No Education: Bachelor's Degree Difficulty w/ Childcare or Family Care: No Living arrangements: alone Occupation/Education: retired Gender identity (if verbalized by the patient): Male Sexual Orientation (if Verbalized by the Patient): Straight or Heterosexual Spiritual care concerns: No Meds Home Medications and Allergies Home Medications ?Medication ?Instructions ?Recorded ?Confirmed ?Type bisacodyl 5 mg tablet,delayed 5 mg PO BID 06/13/24 06/13/24 History release (Dulcolax (bisacodyl)) guaifenesin 600 mg tablet, 600 mg PO DAILY 06/13/24 06/13/24 History extended release 12 hr (Mucinex) Allergies Allergy/AdvReac Type Severity Reaction Status Date / Time No Known Allergies Allergy Unknown Verified 06/18/24 12:03 Vital Signs Vital Signs - 24 hr 06/20/24 16:00 06/20/24 20:00 06/20/24 20:00 Temperature Pulse Rate 65 68 Respiratory Rate Blood Pressure Pulse Oximetry Oxygen Delivery Room Air 06/20/24 20:40 06/21/24 00:00 06/21/24 04:00 Temperature 37.2 C Pulse Rate 73 67 63 Respiratory Rate 20 Blood Pressure 132/74 Pulse Oximetry 99 Oxygen Delivery 06/21/24 05:05 06/21/24 13:58 Temperature 37.2 C 37.2 C Pulse Rate 71 79 Respiratory Rate 20 18 Blood Pressure 144/66 H 141/55 H Pulse Oximetry 98 99 Oxygen Delivery Results Labs and Meds 06/21/24 06:00 06/21/24 06:00 Lab results: Cardiac Enzymes 06/21/24 Range/Units 06:00 AST 32 (17-59) U/L Lipids 06/20/24 Range/Units 05:30 Triglycerides 34 (<150) mg/dL CBC 06/21/24 Range/Units 06:00 WBC 5.2 (4.5-10.0) K/mm3 RBC 3.88 L (4.6-6.20) M/mm3 Hgb 10.6 L (14.0-18.0) g/dL Hct 33.4 L (42.0-52.0) % Plt Count 302 (150-375) k/mm3 Lymph # (Auto) 1.09 (0.9-3.2) K/mm3 [place] # (Auto) 0.7 H (0.1-0.6) K/mm3 Eos # (Auto) 0.0 (0-0.3) K/mm3 Baso # (Auto) 0.1 (0.0-0.1) K/mm3 Comprehensive Metabolic Panel 06/21/24 Range/Units 06:00 Sodium 135 L (137-145) mmol/L Potassium 4.1 (3.4-5.0) mmol/L Chloride 104 (98-107) mmol/L Carbon Dioxide 27 (22-30) mmol/L BUN 20 (9-20) mg/dL Creatinine 0.64 L (0.7-1.3) mg/dL Glucose 118 H (65-110) mg/dL Calcium 8.4 (8.4-10.2) mg/dL AST 32 (17-59) U/L ALT 31 (6-50) U/L Alkaline Phosphatase 67 (38-126) U/L Total Protein 6.0 L (6.3-8.2) g/dL Albumin 3.0 L (3.5-5.1) g/dL Intake and Output 06/20/24 06/21/2406/21/25 23:59 07:59 15:59 Intake Total 4550 770 Output Total 1000 400 Balance 3550 370 Intake: IV 1000 Sodium Chloride 0.9% IV 1,000 1000 ml @ 100 mls/hr IV CONT .Q10H [facility] Rx#:[id number] Oral 0 Tube Feeding 2150 470 Tube Flush 1400 300 Output: Catheter Urine 1000 400 External/Condom 1000 400
--- NOTE | 2024-06-21 16:07 | P.PNIM_ITS ---
Progress Note: A&P Assessment and Plan (1) Fall: Qualifiers: Encounter type: initial encounter Qualified Code(s): W19.XXXA - Unspecified fall, initial encounter Code(s): W19.XXXA - Unspecified fall, initial encounter Status: Acute Assessment and Plan: * Head CT was negative for any acute intracranial process * Cervical spine CT was negative for any acute fracture or traumatic malalignment in the cervical spine * Left elbow x-ray showed large elbow joint effusion * Right shoulder x-ray showed significant degenerative disease without acute fracture or dislocation * Continue fall precautions * PT OT evaluate and treat (2) Orthostatic hypotension: Code(s): I95.1 - Orthostatic hypotension Status: Acute Assessment and Plan: * Orthostatic vitals as follows: 134/48 supine, 86/44 sitting, 89/44 standing * Started on 2.5mg Midodrine * Initiated TEDs * Cardiology consulted, recommended titrating midodrine up to 5 or 10mg bid but otherwise okay with current plan (3) Aspiration pneumonia: Code(s): J69.0 - Pneumonitis due to inhalation of food and vomit Status: Acute Assessment and Plan: * Chest x-ray showed right lower lung opacity * Modified Barium failed * PPN and NPO * Plan for G-tube placement * hypoglycemic protocol in place * Check blood sugars every 6 hours * Completed Augmentin and Azithromycin (4) Dehydration: Code(s): E86.0 - Dehydration Status: Acute Assessment and Plan: * Patient was given IV fluids while in the ED * continue PPN and lipids * Continue NPO status (5) Severe protein-calorie malnutrition: Code(s): E43 - Unspecified severe protein-calorie malnutrition Status: Acute Assessment and Plan: * BMI 16.9, 49 kg * Daughter and patient agreeable to G-tube * GI consulted for G-tube placement today Dietary is recommendations Jevity 1.5 @ 20ml/hr to advance by 10ml/hr q 4 hrs as tolerated, to a goal rate of 55ml/hr over 22 hrs. 150ml flushes q 4 hrs for an additional 900ml free water per day. *Bolus conversion: Jevity 1.5 -300ml bolus QID, 150ml flush q 4 hrs (6) Thyroid nodule: Code(s): E04.1 - Nontoxic single thyroid nodule Status: Acute Assessment and Plan: * CT of the cervical spine shows multiple thyroid nodules * TSH 0.854 * Will order thyroid US while inpatient considering patient will be her at least until Monday. * Thyroid US shown multinodular goiter with recommendations for ultrasound guid ed biopsy * Patient should follow-up outpatient for biopsy as this is not inpatient procedure Time Spent With Patient Time: Subjective Date/time seen: 06/21/24 16:07 Interval history: This is an 83-year-old male with a significant past medical history of vocal cord dysfunction, gout, dyslipidemia, prostate cancer status post radiation, hearing loss who presented to the hospital for evaluation of multiple falls. Patient was given a dose of Zosyn while in the ED for concerns for pneumonia. 06/21/2024 Patient sitting comfortably at bedside at time of exam. Denies any chest pain, SOB, n/v, or abdominal pain. Attempted to obtain orthostatic vitals again but patient became symptomatic again. Braulio hose were ordered and patient remained orthostatic. Cardiology was consulted and recommended to stay on Midodrine with possible titration up to 5 or 10mg b.i.d. but otherwise were okay with current plan and signed off. Plan to discharge tomorrow. Review of Systems Review of Systems: All systems reviewed & are unremarkable except as noted in HPI and below (HPI) Exam Narrative: General: Chronically ill, malnourished, appears stated age. [place] HEENT: normocephalic, atraumatic. Mucous membranes moist. EOMI, PERRLA, bilateral sclera anicteric, no conjunctival injection. Neck supple without JVD, lymphadenopathy, or bruit. Respiratory: clear to ascultation bilaterally. No rales/rhonic/wheezes. Cardiovascular: Regular rate and rhythm, normal S1-S2 upon ascultation. No murmurs, rubs, or clicks. PMI is nondisplaced, capillary refill less than 3 second. Abdomen: Soft, round, no pulsatile masses, nondistended and nontender. No rebound, no guarding. No CVA tenderness, no hepatosplenomegaly. Bowel sounds present to all four quadrants. No high pitch or tinkling sounds, resonant to percussion. Extremities: No cyanosis, clubbing, or edema present. Pulses are palpable 2/2. Active ROM to all four extremities. Neuro: Alert and orientated x 4. PERRLA. Cranial nerves 2-12 intact without focal deficit. Skin: Warm, dry, and intact, without rash, erythema, or lesion. Psych: pleasant, cooperative, normal speech, normal affect, no hallucinations, no dysarthia Const: Other: A&O x3 Objective Data Vital Signs Vital Signs: Vital Signs - 24 hr 06/20/24 20:00 06/20/24 20:00 06/20/24 20:40 Temperature 98.9 F Pulse Rate 68 73 Respiratory Rate 20 Blood Pressure 132/74 Pulse Oximetry 99 Oxygen Delivery Room Air 06/21/24 00:00 06/21/24 04:00 06/21/24 05:05 Temperature 98.9 F Pulse Rate 67 63 71 Respiratory Rate 20 Blood Pressure 144/66 H Pulse Oximetry 98 Oxygen Delivery 06/21/24 08:00 06/21/24 12:00 06/21/24 13:58 Temperature 98.9 F Pulse Rate 65 85 79 Respiratory Rate 18 Blood Pressure 141/55 H Pulse Oximetry 99 Oxygen Delivery Intake/Output Intake/Output: Intake & Output 06/18/24 06/19/24 06/20/24 06/21/24 23:59 23:59 23:59 23:59 Intake Total 1050 0 5550 770 Output Total 5978 087 7469 400 Balance -300 -850 3850 370 Meds/Results Medications: Active Medications Generic Name Dose Route Start Last Admin Trade Name Freq PRN Reason Stop Dose Admin Acetaminophen 650 mg 06/13/24 20:39 Acetaminophen 325 Mg Tablet PO Q4H PRN Mild Pain (1-3) or Fever Dextrose 12.5 gm 06/15/24 13:05 Dextrose 50% 25 Gm/50 Ml Syringe IV PUSH PRN PRN Hypoglycemia Protocol Fluticasone Propionate 2 spray 06/14/24 16:15 06/21/24 09:37 Fluticasone Propionate 0.05% Na Spr 16 Gm Btl (*Bkc) NASAL 2 spray QAM PORTILLO Administration Glucagon 1 mg 06/15/24 13:05 Glucagon For Inj 1 Mg Vial IM PRN PRN Hypoglycemia Protocol Glucose 15 gm 06/15/24 13:05 Glucose Oral Gel 15 Gm Of Glucse In 37.5 Gm Tube PO PRN PRN Hypoglycemia Protocol Dextrose 1,000 mls @ 100 mls/hr 06/15/24 13:05 Dextrose 5% 1,000 Ml IVPB PRN PRN Hypoglycemia Protocol Sodium Chloride 1,000 mls @ 100 mls/hr 06/19/24 14:00 06/21/24 04:18 Normal Saline Iv IV CONT Not Given .Q10H PORTILLO Lactulose 20 gm 06/21/24 10:20 06/21/24 12:19 Lactulose 20 Gm/30 Ml Udc PO 20 gm QAM PORTILLO Administration Loratadine 10 mg 06/15/24 09:00 06/21/24 09:36 Loratadine 10 Mg Tablet PO 10 mg QAM PORTILLO Administration Midodrine 2.5 mg 06/20/24 13:00 06/21/24 12:19 Midodrine Hcl 2.5 Mg Tablet PO 2.5 mg TID PORTILLO Administration Mupirocin 1 applic 06/19/24 11:30 06/21/24 09:38 Mupirocin 2% Oint 22 Gm Tube EACH NARE 06/24/24 23:59 1 applic Q12HR PORTILLO Administration Pantoprazole Sodium 40 mg 06/19/24 09:00 06/21/24 09:36 Pantoprazole 40 Mg Tablet PO Not Given QAM PORTILLO Tramadol HCl 50 mg 06/13/24 20:39 06/19/24 00:48 Tramadol Hcl (*Crx) 50 Mg Tablet PO 50 mg Q4H PRN Administration Pain Rated 4-6 Radiology Results: ITS Impressions Head CT 06/13/24 15:23 IMPRESSION: No acute intracranial process. Cervical Spine CT 06/13/24 15:27 IMPRESSION: No acute fracture or traumatic malalignment in the cervical spine. Multiple thyroid nodules, consider nonemergent, outpatient thyroid ultrasound for further characterization. Chest X-Ray 06/13/24 15:39 IMPRESSION: Right lower lung opacities may represent infection/aspiration. Trace left pleural fluid collection versus chronic pleural blunting Elbow X-Ray 06/13/24 15:40 IMPRESSION: Large elbow joint effusion, as can be seen with occult radial head fracture. Shoulder X-Ray 06/13/24 15:40 IMPRESSION: Significant degenerative disease, without acute fracture or anterior dislocation. Thyroid Ultrasound 06/17/24 08:04 IMPRESSION: 1. Multinodular goiter including a 2.0 cm Ti RADS 5 left thyroid nodule and a 2.4 cm TI-RADS 4 right thyroid nodule. These would meet criteria for ultrasound guided biopsy although need for biopsy although given patient age, need for biopsy may depend on clinical considerations. Modified Barium Swallow 06/17/24 09:50 IMPRESSION: Pharyngeal dysphagia with laryngeal penetration and silent aspiration. Please correlate with speech pathologist findings and specific feeding recommendations. Labs Labs: Laboratory Results - last 24 hr 06/20/24 06/21/24 06/21/24 17:02 01:14 06:00 WBC 5.2 RBC 3.88 L Hgb 10.6 L Hct 33.4 L MCV 86.1 MCH 27.3 MCHC 31.7 L RDW 13.5 Plt Count 302 MPV 9.5 Immature Gran % (Auto) 0.2 Neut % (Auto) 63.2 Lymph % (Auto) 21.2 [place] % (Auto) 13.8 H Eos % (Auto) 0.6 Baso % (Auto) 1.0 Lymph # (Auto) 1.09 [place] # (Auto) 0.7 H Eos # (Auto) 0.0 Baso # (Auto) 0.1 Abs Immat Gran (auto) 0.01 Absolute Neuts (auto) 3.3 Absolute Nucleated RBC 0.000 Nucleated RBC % 0.0 Sodium 135 L Potassium 4.1 Chloride 104 Carbon Dioxide 27 Anion Gap 4 BUN 20 Creatinine 0.64 L Estim Creat Clear Calc 52 Estimated GFR > 60 Glucose 118 H POC Capillary Glucose 93 113 H Uric Acid 2.2 L Calcium 8.4 Phosphorus 2.5 Total Bilirubin 0.4 AST 32 ALT 31 Alkaline Phosphatase 67 Total Protein 6.0 L Albumin 3.0 L Quality VTE Prophylaxis VTE prophylaxis: mechanical ordered
[2024-06-21] MEDS: MIDODRINE HCL 2.5 MG TABLET 5 MG PO (17:10)
[2024-06-21 18:42] LABS: Glucose Point of Care 104 mg/dl (65-105)
[2024-06-22] VITALS: PULSE 70
[2024-06-22 00:37] LABS: Glucose Point of Care 119 mg/dl (65-105)
[2024-06-22 04:00] VITALS: PULSE 67
[2024-06-22 06:05] VITALS: BP 137/64; PULSE 75; RESP 18; TEMP 37; O2SAT 96
[2024-06-22 07:06] LABS: Basophils Percent Auto 0.5 % (0.2-1.2); Hematocrit 33.1 % (42.0-52.0); Hemoglobin 10.5 g/dL (14.0-18.0); Immature Granulocyte Absolute 0.01 K/mm3 (0.00-0.031); Immature Granulocyte Percent A 0.2 % (0-0.5); Lymphocytes Absolute Auto 1.09 K/mm3 (0.9-3.2); Mean Corpuscular HGB Conc 31.7 g/dl (32-36); Mean Corpuscular Hemoglobin 26.9 pg (26-34); Mean Corpuscular Volume 84.9 fl (80-100); Mean Platelet Volume 9.2 fl (7.4-10.4); Monocytes Absolute Auto 0.8 K/mm3 (0.1-0.6); Monocytes Percent Auto 14.1 % (2.6-8.5); Neutrophils Absolute Auto 3.6 K/mm3 (1.3-6.7); Neutrophils Percent Auto 65.2 % (45.5-73.1); Platelet Count Result 283 k/mm3 (150-375); Red Cell Distribution Width 13.6 % (11.5-14.5); White Blood Count 5.5 K/mm3 (4.5-10.0)
[2024-06-22 07:18] LABS: Alanine Aminotransferase 30 U/L (6-50); Alkaline Phosphatase 65 U/L (38-126); Anion Gap 6 mmol/L (4-12); Aspartate Amino Transferase 28 U/L (17-59); Bilirubin,Total 0.4 mg/dL (0.2-1.3); Blood Urea Nitrogen 19 mg/dL (9-20); Calcium 8.7 mg/dL (8.4-10.2); Carbon Dioxide 27 mmol/L (22-30); Chloride 101 mmol/L (98-107); Estimated CRCL calculation 51 ml/min; Estimated Glomerular Filt Rate > 60; Glucose 113 mg/dL (65-110); Phosphorus 2.8 mg/dL (2.5-4.5); Potassium 4.1 mmol/L (3.4-5.0); Sodium 134 mmol/L (137-145)
[2024-06-22 08:01] VITALS: PULSE 66
[2024-06-22] MEDS: LORATADINE 10 MG TABLET PO (09:14)
[2024-06-22] MEDS: MIDODRINE HCL 2.5 MG TABLET 5 MG PO ×2 (09:14→12:24)
[2024-06-22] MEDS: PANTOPRAZOLE 40 MG TABLET PO (09:14)
[2024-06-22] MEDS: LACTULOSE 20 GM/30 ML UDC PO (09:15)
[2024-06-22] MEDS: MUPIROCIN 2% OINT 22 GM TUBE 1 APPLIC EACH NARE (09:15)
[2024-06-22] MEDS: FLUTICASONE PROPIONATE 0.05% NA SPR 16 GM BTL (*BKC) 2 SPRAY NASAL (09:18)
--- NOTE | 2024-06-22 10:01 | PM.DS ---
DS: Admitting Diagnosis Discharge Date 06/22/2024 Admitting Diagnosis Aspiration pneumonia Severe protein-calorie malnutrition DS: Discharge Diagnosis Discharge Diagnosis (1) Fall: Qualifiers: Encounter type: initial encounter Qualified Code(s): W19.XXXA - Unspecified fall, initial encounter Code(s): W19.XXXA - Unspecified fall, initial encounter Status: Acute (2) Orthostatic hypotension: Code(s): I95.1 - Orthostatic hypotension Status: Acute (3) Aspiration pneumonia: Code(s): J69.0 - Pneumonitis due to inhalation of food and vomit Status: Acute (4) Dehydration: Code(s): E86.0 - Dehydration Status: Acute (5) Severe protein-calorie malnutrition: Code(s): E43 - Unspecified severe protein-calorie malnutrition Status: Acute (6) Thyroid nodule: Code(s): E04.1 - Nontoxic single thyroid nodule Status: Acute DS: Summary Hospital Course Reason for hospitalization: Fall Hospital Course: Mr. 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 He presents to [facility] with increasing generalized weakness and fall. He has been reluctant to have home health or be placed in a residential however his family is concerned. He walks about 2 miles on most days and does not use any assistive ambulatory devices. He reports about 6 months ago began to fall more often. His falls are arbitrary in nature, they can be at the end of a 2 mi walk or right when he gets out of bed to get up in the morning. He reports a sensation of weakness and dizziness and his body then it gives out but he does not have loss of consciousness. No sensation of spinning. No chest pain, no shortness of breath. No specific weakness, no change in vision. No seizure activity. Feels he may be dehydrated although this is on the account of his family reporting so. XR chest 2V showed Right lower lung opacities may represent infection/aspiration. Trace left pleural fluid collection versus chronic pleural blunting. CT cervical spine showed No acute fracture or traumatic malalignment in the cervical spine. Multiple thyroid nodules, consider nonemergent, outpatient thyroid ultrasound for further characterization. US Thyroid showed Multinodular goiter including a 2.0 cm Ti RADS 5 left thyroid nodule and a 2.4 cm TI-RADS 4 right thyroid nodule. These would meet criteria for ultrasound guided biopsy although need for biopsy although given patient age, need for biopsy may depend on clinical considerations. This will be an outpatient follow-up procedure. ER evaluation did not reveal remarkable vital signs or laboratory workup aside from right lower lung opacities. He was given Zosyn 4.5 g IV x1. Upon admission he had a bedside swallow and there was still concern for aspiration. GI was consulted and recommended placement of G tube. Family and patient agreed for gtube placement and this was placed on 06/18 without complications. Tube feeding goals were then initiated and patient met these goals by 06/19 and the patient was then considered ready to be discharged to SNF placement. Before discharge could be considered, however, orthostatic vital signs were obtained and the patient was found to be very symptomatic during the obtaining of the orthostatic vitals and had repeated blood pressure drops from 130s/60s to 80s/40s. These symptoms and vital signs would subsequently return to normal upon sitting back down. Midodrine 2.5mg was added, TEMO hose were initiated, and cardiology was consulted regarding any further recommendations. They recommended titrating Midodrine up from 2.5mg to 5.0mg and that he was safe to discharge from a cardiology standpoint, with very clear instructions on managing orthostatic symptoms at home. His blood work remained unchanged and unremarkable throughout his visit. Discharge tube feeding instructions were given through dietary and patient was determined to be safe for discharge home. Pt and family amenable to this plan. Status at Discharge Functional status at discharge: independent ambulation Overall status at discharge: patient is back to baseline Time Spent with Patient Time attestation: Total time spent providing and/or coordinating discharge services: 45 Exam Narrative: General: Chronically ill, malnourished, appears stated age. [place] HEENT: normocephalic, atraumatic. Mucous membranes moist. EOMI, PERRLA, bilateral sclera anicteric, no conjunctival injection. Neck supple without JVD, lymphadenopathy, or bruit. Respiratory: clear to ascultation bilaterally. No rales/rhonic/wheezes. Cardiovascular: Regular rate and rhythm, normal S1-S2 upon ascultation. No murmurs, rubs, or clicks. PMI is nondisplaced, capillary refill less than 3 second. Abdomen: Soft, round, no pulsatile masses, nondistended and nontender. No rebound, no guarding. No CVA tenderness, no hepatosplenomegaly. Bowel sounds present to all four quadrants. No high pitch or tinkling sounds, resonant to percussion. Extremities: No cyanosis, clubbing, or edema present. Pulses are palpable 2/2. Active ROM to all four extremities. Neuro: Alert and orientated x 4. PERRLA. Cranial nerves 2-12 intact without focal deficit. Skin: Warm, dry, and intact, without rash, erythema, or lesion. Psych: pleasant, cooperative, normal speech, normal affect, no hallucinations, no dysarthia Const: Other: A&O x3 DS: Data Data Completed and Pending Labs on day of discharge: Labs from last 24 hours 06/22/24 06/22/24 06/22/24 06:43 06:42 00:34 WBC 5.5 RBC 3.90 L Hgb 10.5 L Hct 33.1 L MCV 84.9 MCH 26.9 MCHC 31.7 L RDW 13.6 Plt Count 283 MPV 9.2 Immature Gran % (Auto) 0.2 Neut % (Auto) 65.2 Lymph % (Auto) 20.0 [place] % (Auto) 14.1 H Eos % (Auto) 0.0 Baso % (Auto) 0.5 Lymph # (Auto) 1.09 [place] # (Auto) 0.8 H Eos # (Auto) 0.0 Baso # (Auto) 0.0 Abs Immat Gran (auto) 0.01 Absolute Neuts (auto) 3.6 Absolute Nucleated RBC 0.000 Nucleated RBC % 0.0 Sodium 134 L Potassium 4.1 Chloride 101 Carbon Dioxide 27 Anion Gap 6 BUN 19 Creatinine 0.65 L Estim Creat Clear Calc 51 Estimated GFR > 60 Glucose 113 H POC Capillary Glucose 119 H Uric Acid Calcium 8.7 Phosphorus 2.8 Total Bilirubin 0.4 AST 28 ALT 30 Alkaline Phosphatase 65 Total Protein 6.0 L Albumin 3.0 L 06/21/24 06/21/24 18:39 06:00 WBC RBC Hgb Hct MCV MCH MCHC RDW Plt Count MPV Immature Gran % (Auto) Neut % (Auto) Lymph % (Auto) [place] % (Auto) Eos % (Auto) Baso % (Auto) Lymph # (Auto) [place] # (Auto) Eos # (Auto) Baso # (Auto) Abs Immat Gran (auto) Absolute Neuts (auto) Absolute Nucleated RBC Nucleated RBC % Sodium Potassium Chloride Carbon Dioxide Anion Gap BUN Creatinine Estim Creat Clear Calc Estimated GFR Glucose POC Capillary Glucose 104 Uric Acid 2.2 L Calcium Phosphorus Total Bilirubin AST ALT Alkaline Phosphatase Total Protein Albumin Imaging Radiologist's impression: CT brain wo con 06/13/24 No acute intracranial process. CT cervical spine wo con 06/13/24 No acute fracture or traumatic malalignment in the cervical spine. Multiple thyroid nodules, consider nonemergent, outpatient thyroid ultrasound for further characterization. XR chest 2V Right lower lung opacities may represent infection/aspiration. Trace left pleural fluid collection versus chronic pleural blunting XR elbow LT min 3V Large elbow joint effusion, as can be seen with occult radial head fracture. XR shoulder RT min 2V Significant degenerative disease, without acute fracture or anterior dislocation. US thyroid Multinodular goiter including a 2.0 cm Ti RADS 5 left thyroid nodule and a 2.4 cm TI-RADS 4 right thyroid nodule. These would meet criteria for ultrasound guided biopsy although need for biopsy although given patient age, need for biopsy may depend on clinical considerations. XR barium swallow modified Pharyngeal dysphagia with laryngeal penetration and silent aspiration. Please correlate with speech pathologist findings and specific feeding recommendations. Discharge Plan Discharge Attending physician on discharge: Kan Andrade Consulting providers: Sarwat Russell Discharging Clinician: Kan Andrade Anticipated Discharge Date/Time: 06/22/24 09:59 Patient Disposition: SNF Activity: as tolerated Diet: tube feeding Discharge Instructions: Discharge disposition: Stable Take medications as prescribed. You will be prescribed Midodrine 5mg to be taken 3 times a day. Jevity 1.5 -300ml bolus QID, 150ml flush q 4 hrs Monitor blood pressures Take caution while standing, rising, or moving Change positions slowly taking a break between each position change If you standing feel dizzy sit back down and take a break Encouraged to continue with yearly vaccinations Return to the emergency department if he developed sudden shortness of breath, chest pain, nausea, vomiting, upset stomach or intractable diarrhea Return to the emergency department if you develop fever greater than 101.5 Follow-up with the primary care physician within 1-2 weeks Thank you for [facility] for your healthcare needs Patient Instructions: How to Use and Care for Your PEG Tube (DC) Patient Language: Mohawk Stand Alone Forms: General Discharge Information Follow-up/Referrals: Anjelica Horner MD [Primary Care Provider] - Discharge Medications: New midodrine 5 mg tablet 5 mg PO TID Qty: 90 0RF Rx Instructions: do not give last dose of day after 6PM or within 4 hrs of bedtime Continued bisacodyl [Dulcolax (bisacodyl)] 5 mg tablet,delayed release (DR/EC) 5 mg PO BID guaifenesin [Mucinex] 600 mg tablet extended release 12hr 600 mg PO DAILY Date of admission: 06/15/24 15:10 Primary Care Provider: Anjelica Horner Admitting Provider: Nisa Carballo Attending physician on admission: Kan Andrade Condition: Stable Quality VTE Prophylaxis VTE prophylaxis: mechanical ordered Hospitalist MIPS Heart Failure (Exclusion) Patient has history of Heart Transplant or Left Ventricular Assistive Device?: No IF YES, STOP HERE Heart Failure (Qualifier) Patient has current or prior documentation of LVEF less than or equal to 40%, or mod/servere depressed LVSF?: No IF NO, STOP HERE
[2024-06-22 11:31] LABS: Glucose Point of Care 119 mg/dl (65-105)
[2024-06-22 12:03] VITALS: PULSE 68
[2024-06-22 14:00] VITALS: BP 142/82; PULSE 85; RESP 16; TEMP 36.6; O2SAT 98
== END 2024-06-22 14:50 | DRG 177 ==
LOC: ANHED 16:54 → ANH3MEDSUR 17:44
PROVIDERS: General Practice; Internal Medicine Gastroenterology; Nurse Practitioner Acute Care; Admitting Provider Internal Medicine; Emergency Provider Emergency Medicine; PCP Family Medicine; Visit Provider Physician Assistant
PROC: 0DH63UZ Insertion of Feeding Device into Stomach, Percutaneous Approach (ICD-10-PCS; CPT 43246; principal; 2024-06-18 15:00)
DX: J69.0 Pneumonitis due to inhalation of food and vomit (principal); E43 Unspecified severe protein-calorie malnutrition; Z68.1 Body mass index [BMI] 19.9 or less, adult; R62.7 Adult failure to thrive; R13.19 Other dysphagia; K29.80 Duodenitis without bleeding; E86.0 Dehydration; I95.1 Orthostatic hypotension; E04.1 Nontoxic single thyroid nodule; E78.5 Hyperlipidemia, unspecified; K21.9 Gastro-esophageal reflux disease without esophagitis; W19.XXXA Unspecified fall, initial encounter; R29.6 Repeated falls; Z85.46 Personal history of malignant neoplasm of prostate
CPT/HCPCS: 36415; 43246; 70450; 71046; 72125; 73030; 73080; 76536; 80048; 80053; 82948; 83735; 84100; 84443; 84466; 84478; 84550; 85025; 85610; 85730; 87040; 92526; 92610; 92611; 96361; 96365; 96376; 97110; 97116; 97161; 97165; 97530; 97535; 99285; A9270; G0378; J0690; J2003; J2543; J2704; J7030; J7120

== ENCOUNTER 2024-06-23 01:35 | Emergency (ER) | payer OTHER, SELFPAY ==
--- NOTE | ~2024-06-23 | XR_ITS ---
XR abdomen gastric tube insert Ordering provider: Moise Ji MD History: . Status post G-tube replacement . Comparison: None. FINDINGS: BOWEL: Contrast is seen in the stomach and duodenum. Status post G-tube placement. Nonobstructive bow el gas pattern. ORGANOMEGALY: None. SIGNIFICANT PATHOLOGIC CALCIFICATIONS: None. OTHER: No free air is seen under the diaphragm. IMPRESSION: NO ACUTE ABDOMINAL FINDINGS. Status post G-tube placement. Contrast is seen in the stomach and duodenum. No definite leak seen. Reviewed, dictated and finalized at location A.
[2024-06-23 01:38] VITALS: BP 146/76; PULSE 74; RESP 15; TEMP 36.7; O2SAT 100
--- NOTE | 2024-06-23 01:58 | ED.GENADULT ---
HPI - General Adult General Chief complaint: Unspecified Stated complaint: PULLED OUT G TUBE History of Present Illness HPI narrative: Patient is a 83-year-old gentleman presents emergency department chief complaint of pulled G-tube out. Patient is a resident of local nursing facility pulled his PEG tube out facility placed a Hernandez catheter in the stoma site and transported the patient to the emergency department for G-tube replacement. Related Data Home Medications ?Medication ?Instructions ?Recorded ?Confirmed ?Last Taken ?Type bisacodyl 5 mg tablet,delayed 5 mg PO BID 06/13/24 06/13/24 Unknown History release (Dulcolax (bisacodyl)) guaifenesin 600 mg tablet, 600 mg PO DAILY 06/13/24 06/13/24 Unknown History extended release 12 hr (Mucinex) Allergies Allergy/AdvReac Type Severity Reaction Status Date / Time No Known Allergies Allergy Unknown Verified 06/18/24 12:03 Review of Systems Review of Systems: A 10 system review of systems was completed on the patient and is negative except for what is stated in the HPI. Nursing and ancillary documentation was reviewed. [facility] Past Medical History Medical History Dysphagia Abnormal gait Vocal cord dysfunction Hearing loss Oral thrush Memory loss 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 Gout of big toe Dyslipidemia Hx of radiation therapy Prostate cancer Hx of malignant neoplasm of prostate Follows with Dr Castro Surgical History Surgical History History of colonoscopy last performed 2021 or 2022 History of loop recorder History of right inguinal hernia repair 1948 - x2 Family History Family History Father Family history of coronary artery disease Mother Family history of arthritis Grandparent Family history of coronary artery disease Other Family history of malignant neoplasm of breast in first degree relative Social History Social History Social History: Caffeine-none Has a daughter Smoking status: Never smoker Second hand tobacco smoke exposure: Yes Alcohol intake: never Substance use: never Substance use type: does not use Do You Feel Safe in your Home?: Yes Lack of Transportation: No Lack of Food: Never True Current Housing: I Have Housing Concerned About Future Housing: No Difficulty Paying Gas/Electric Bills: No Difficulty Paying for Meds: No Currently Unemployed: No Education: Bachelor's Degree Difficulty w/ Childcare or Family Care: No Living arrangements: alone Occupation/Education: retired Gender identity (if verbalized by the patient): Male Sexual Orientation (if Verbalized by the Patient): Straight or Heterosexual Spiritual care concerns: No Exam Narrative: GENERAL: Well-appearing, well-nourished, and in no acute distress. HEAD: Normocephalic, atraumatic. EYES: PERRLA and EOMI. ENT: Nares clear, no rhinorrhea or epistaxis. Mucous membranes moist. NECK: Supple. CHEST: Clear to auscultation. No respiratory distress. HEART: Regular rate and rhythm. No murmur heard. Normal peripheral pulses. ABDOMEN: Soft, nontender, nondistended, normal active bowel sounds. G-tube site clean no active bleeding. There is a Hernandez catheter EXTREMITIES: Normal range of motion. No edema. SKIN: Warm, dry, no rash. NEURO: No focal deficits. Alert and oriented x3. PSYCH: Normal mood and affect. Course Vital Signs Vital signs: Vital Signs Temperature 36.7 C 06/23/24 01:38 Pulse Rate 74 06/23/24 01:38 Respiratory Rate 15 06/23/24 01:38 Blood Pressure 146/76 H 06/23/24 01:38 Pulse Oximetry 100 06/23/24 01:38 Oxygen Delivery Room Air 06/23/24 01:38 Temperature 36.7 C 06/23/24 01:38 Pulse Rate 74 06/23/24 01:38 Respiratory Rate 15 06/23/24 01:38 Blood Pressure 146/76 H 06/23/24 01:38 Pulse Oximetry 100 06/23/24 01:38 Oxygen Delivery Room Air 06/23/24 01:38 Procedures Feeding Tube Replacement Feeding Tube #1: Feeding Tube Placement Date: 06/23/24 Feeding Tube Placement Time: 01:58 Type of Tube: gastrostomy Insertion Site Prior to Procedure: clean Tube Used for Reinsertion: Bard Uzbek Tube Size (F): 20 Balloon size (mL): 20 Verification of Placement: KUB and gastrografin injection Tube Secured by: tape/dressing and attachment device Patient Tolerated Procedure: well Medical Decision Making Vital Signs Vital Signs: Vital Signs Temperature 36.7 C 06/23/24 01:38 Pulse Rate 74 06/23/24 01:38 Respiratory Rate 15 06/23/24 01:38 Blood Pressure 146/76 H 06/23/24 01:38 Pulse Oximetry 100 06/23/24 01:38 Oxygen Delivery Room Air 06/23/24 01:38 Temperature 36.7 C 06/23/24 01:38 Pulse Rate 74 06/23/24 01:38 Respiratory Rate 15 06/23/24 01:38 Blood Pressure 146/76 H 06/23/24 01:38 Pulse Oximetry 100 06/23/24 01:38 Oxygen Delivery Room Air 06/23/24 01:38 Discharge Plan Discharge Clinical Impression: Malfunction of gastrostomy tube Patient Disposition: NH Half-Way/Asst Living Condition: Stable Instructions: Antibiotic Form, How to Use and Care for Your PEG Tube (DC), PEG (Percutaneous Endoscopic Gastrostomy) Tube Insertion (DC) Patient Language: Estonian Prescriptions: No Action bisacodyl [Dulcolax (bisacodyl)] 5 mg tablet,delayed release (DR/EC) 5 mg PO BID guaifenesin [Mucinex] 600 mg tablet extended release 12hr 600 mg PO DAILY midodrine 5 mg tablet 5 mg PO TID Qty: 90 0RF Rx Instructions: do not give last dose of day after 6PM or within 4 hrs of bedtime Follow-up/Referrals: Anjelica Horner MD [Primary Care Provider] - Time of Disposition: 02:14
--- NOTE | 2024-06-23 02:26 | PC.NURSE ---
Report called to Aaron at [facility] at this time. ER corporation secretary setting up transport.
--- OUTSIDE RECORDS SUMMARY | 2024-06-23 02:26 | XMS_ITS | Clinical Summary ---
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
--- OUTSIDE RECORDS SUMMARY | 2024-06-23 02:26 | XMS_ITS | Encounter Summary ---
Author Organization [facility] Address [address] [facility] [address] [place] [address] Care Team Providers Care Radius Corner Machine Operator Name Role Phone Yessica Saenz MD Primary Care Provider +1- [phone] Yessica Saenz MD Primary Care Provider +1- [phone] Rajinder Nicholson MD Primary Care Provider +1- [phone] Nova Brumfield MD Primary Care Provider Phyllis Horner MD Primary Care Provider Encounter Details Date Type Department Care Team (Late st Contact Info) Description 04/07/2016 Orders Only [facility] ProviderCarmela MD [address] [place] [address] Social History Tobacco Use Types Packs/Day Years Used Date Smoking Tobacco: Never Alcohol Use Standard Drinks/Week Comments No 0 (1 standard drink = 0.6 oz pur e alcohol) Sex and Gender Information Value Date Recorded Sex Assigned at Not on file 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
--- OUTSIDE RECORDS SUMMARY | 2024-06-23 02:26 | XMS_ITS | Encounter Summary ---
Author Organization [facility] Address [address] [facility] [address] [place] [address] Care Team Providers Care Directory Compiler Name Role Phone Yessica Saenz MD Primary Care Provider +1- [phone] Rajinder Nicholson MD Primary Care Provider +1- [phone] Nova Brumfield MD Primary Care Provider Phyllis Horner MD Primary Care Provider Encounter Details Date Type Department Care Team (Late st Contact Info) Description 07/04/2016 Orders Only [facility] ProviderCarmela MD [address] [place] [address] Social History Tobacco Use Types Packs/Day Years Used Date Smoking Tobacco: Never Alcohol Use Standard Drinks/Week Comments No 0 (1 standard drink = 0.6 oz pur e alcohol) Sex and Gender Information Value Date Recorded Sex Assigned at Not on file 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
--- OUTSIDE RECORDS SUMMARY | 2024-06-23 02:26 | XMS_ITS | Encounter Summary ---
Author Organization [facility] Address [address] [facility] [address] [place] [address] Care Team Providers Care Track Layer Name Role Phone Yessica Saenz MD Primary Care Provider +1- [phone] Yessica Saenz MD Primary Care Provider +1- [phone] Rajinder Nicholson MD Primary Care Provider +1- [phone] Nova Brumfield MD Primary Care Provider Phyllis Horner MD Primary Care Provider Encounter Details Date Type Department Care Team (Late st Contact Info) Description 05/23/2016 [facility] Only [facility] ProviderCarmela MD [address] [place] [address] Social History Tobacco Use Types Packs/Day Years Used Date Smoking Tobacco: Never Alcohol Use Standard Drinks/Week Comments No 0 (1 standard drink = 0.6 oz pur e alcohol) Sex and Gender Information Value Date Recorded Sex Assigned at Not on file 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
--- OUTSIDE RECORDS SUMMARY | 2024-06-23 02:26 | XMS_ITS | Continuity of Care Document ---
Author Organization [facility] Address [address] [place] [address] Phone Care Team Providers Care Nuclear Criticality Safety Engineer Name Role Phone Alber Gunter MD Unavailable Unavailable Advance Directives Directive Yes / No Effective Date File Name No Information Encounters Encounter Description Practice Location Reason(s) For Visit Diagnoses Date Provider Providers Copied on Encounter [facility], [address], [place], [place], [id number], [place] tel:[phone] [facility] No Information [address] [facility] [address], [place], [place], [address], [place]. tel:[phone] Family History Family Member Type Diagnosis Age At Onset No Information Payers Payer name Insurance type Covered green party ID Authoriza tion(s) No Information Social History [...]
--- OUTSIDE RECORDS SUMMARY | 2024-06-23 02:26 | XMS_ITS | Referral Summary ---
Author Organization [facility] Address 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
--- OUTSIDE RECORDS SUMMARY | 2024-06-23 02:26 | XMS_ITS | Encounter Summary ---
Author Organization [facility] Address [address] [facility] [address] [place] [address] Care Team Providers Care Cabinet Builder Name Role Phone Yessica Saenz MD Primary Care Provider +1- [phone] Yessica Saenz MD Primary Care Provider +1- [phone] Rajinder Nicholson MD Primary Care Provider +1- [phone] Nova Brumfield MD Primary Care Provider Phyllis Horner MD Primary Care Provider Encounter Details Date Type Department Care Team (Late st Contact Info) Description 02/25/2016 Orders Only [facility] ProviderCarmela MD [address] [place] [address] Social History Tobacco Use Types Packs/Day Years Used Date Smoking Tobacco: Never Alcohol Use Standard Drinks/Week Comments No 0 (1 standard drink = 0.6 oz pur e alcohol) Sex and Gender Information Value Date Recorded Sex Assigned at Not on file 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
[2024-06-23 02:27] VITALS: BP 158/58; PULSE 74; RESP 15; O2SAT 100
== END 2024-06-23 03:47 ==
LOC: ANHED 02:24
PROVIDERS: Emergency Provider Emergency Medicine; PCP Family Medicine
DX: Z43.1 Encounter for attention to gastrostomy (principal); E78.5 Hyperlipidemia, unspecified; M10.9 Gout, unspecified; Z85.46 Personal history of malignant neoplasm of prostate; Z92.3 Personal history of irradiation; Z79.899 Other long term (current) drug therapy
CPT/HCPCS: 43762; 99283

== ENCOUNTER 2024-07-24 15:39 | Emergency (ER) | payer OTHER, SELFPAY ==
--- OUTSIDE RECORDS SUMMARY | 2024-07-24 15:42 | XMS_ITS | Encounter Summary ---
Author Organization [facility] Address [address] [facility] [address] [place] [address] Care Team Providers Care Dogman/Woman Name Role Phone Yessica Saenz MD Primary Care Provider +1- [phone] Yessica Saenz MD Primary Care Provider +1- [phone] Rajinder Nicholson MD Primary Care Provider +1- [phone] Nova Brumfield MD Primary Care Provider Phyllis Horner MD Primary Care Provider Encounter Details Date Type Department Care Team (Late st Contact Info) Description 04/07/2016 [facility] Only [facility] ProviderCarmela MD [address] [place] [address] Social History Tobacco Use Types Packs/Day Years Used Date Smoking Tobacco: Never Alcohol Use Standard Drinks/Week Comments No 0 (1 standard drink = 0.6 oz pur e alcohol) Sex and Gender Information Value Date Recorded Sex Assigned at Not on file 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
--- OUTSIDE RECORDS SUMMARY | 2024-07-24 15:42 | XMS_ITS | Encounter Summary ---
Author Organization [facility] Address [address] [facility] [address] [place] [address] Care Team Providers Care V Belt Coverer Name Role Phone Yessica Saenz MD Primary Care Provider +1- [phone] Rajinder Nicholson MD Primary Care Provider +1- [phone] Nova Brumfield MD Primary Care Provider Phyllis Horner MD Primary Care Provider Encounter Details Date Type Department Care Team (Late st Contact Info) Description 07/04/2016 Orders Only [facility] ProviderCarmela MD [address] [place] [address] Social History Tobacco Use Types Packs/Day Years Used Date Smoking Tobacco: Never Alcohol Use Standard Drinks/Week Comments No 0 (1 standard drink = 0.6 oz pur e alcohol) Sex and Gender Information Value Date Recorded Sex Assigned at Not on file 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
--- OUTSIDE RECORDS SUMMARY | 2024-07-24 15:42 | XMS_ITS | Encounter Summary ---
Author Organization [facility] Address [address] [facility] [address] [place] [address] Care Team Providers Care Retail Advertising Account Executive Name Role Phone Yessica Saenz MD Primary Care Provider +1- [phone] Yessica Saenz MD Primary Care Provider +1- [phone] Rajinder Nicholson MD Primary Care Provider +1- [phone] Nova Brumfield MD Primary Care Provider Phyllis Horner MD Primary Care Provider Encounter Details Date Type Department Care Team (Late st Contact Info) Description 05/23/2016 Orders Only [facility] ProviderCarmela MD [address] [place] [address] Social History Tobacco Use Types Packs/Day Years Used Date Smoking Tobacco: Never Alcohol Use Standard Drinks/Week Comments No 0 (1 standard drink = 0.6 oz pur e alcohol) Sex and Gender Information Value Date Recorded Sex Assigned at Not on file 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
--- OUTSIDE RECORDS SUMMARY | 2024-07-24 15:42 | XMS_ITS | Continuity of Care Document ---
Author Organization [facility] Address [address] [place] [address] Phone Care Team Providers Care Research Assistant Name Role Phone Alber Gunter MD Unavailable Unavailable Advance Directives Directive Yes / No Effective Date File Name No Information Encounters Encounter Description Practice Location Reason(s) For Visit Diagnoses Date Provider Providers Copied on Encounter [facility], [address], [place], [place], [id number], [place] tel:[phone] [facility] No Information [address] [facility] [address], [place], [place], [id number], [place]. tel:[phone] Family History Family Member Type Diagnosis Age At Onset No Information Payers Payer name Insurance type Covered libertarian ID Authoriza tion(s) No Information Social History [...]
--- OUTSIDE RECORDS SUMMARY | 2024-07-24 15:43 | XMS_ITS | Encounter Summary ---
Author Organization [facility] Address [address] [facility] [address] [place] [address] Care Team Providers Care Ladle Liner Name Role Phone Yessica Saenz MD Primary Care Provider +1- [phone] Yessica Saenz MD Primary Care Provider +1- [phone] Rajinder Nicholson MD Primary Care Provider +1- [phone] Nova Brumfield MD Primary Care Provider Phyllis Horner MD Primary Care Provider Encounter Details Date Type Department Care Team (Late st Contact Info) Description 02/25/2016 Orders Only [facility] ProviderCarmela MD [address] [place] [address] Social History Tobacco Use Types Packs/Day Years Used Date Smoking Tobacco: Never Alcohol Use Standard Drinks/Week Comments No 0 (1 standard drink = 0.6 oz pur e alcohol) Sex and Gender Information Value Date Recorded Sex Assigned at Not on file 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
--- OUTSIDE RECORDS SUMMARY | 2024-07-24 15:43 | XMS_ITS | Clinical Summary ---
Author Organization [facility] Address [facility] [place] [address] Care Team Providers Care Guest Services Ambassador Name Role Phone Phyllis Horner MD Primary [...] 1:45 PM CDT Office Visit 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
--- OUTSIDE RECORDS SUMMARY | 2024-07-24 15:43 | XMS_ITS | Referral Summary ---
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
[2024-07-24 15:48] VITALS: BP 116/55; PULSE 62; RESP 20; TEMP 36.4; O2SAT 100
--- NOTE | 2024-07-24 15:53 | ED_ITS ---
HPI - General Adult General Chief complaint: Unspecified Stated complaint: dislodged g tube Time Seen by Provider: 07/24/24 15:44 History of Present Illness HPI narrative: Patient is a 83-year-old gentleman who presents emergency department with chief complaint of concern about G-tube. Family noticed that the G-tube has been sliding and they decide to bring the patient emergency department for evaluation I also this is all better redness at the insertion site. Related Data Home Medications Medication Instructions Recorded Confirmed Last Taken Type bisacodyl 5 mg tablet,delayed 5 mg PO BID 06/13/24 06/13/24 Unknown History release (Dulcolax (bisacodyl)) guaifenesin 600 mg tablet, 600 mg PO DAILY 06/13/24 06/13/24 Unknown History extended release 12 hr (Mucinex) Allergies Allergy/AdvReac Type Severity Reaction Status Date / Time No Known Allergies Allergy Unknown Verified 07/24/24 15:52 Review of Systems Review of Systems: A 10 system review of systems was completed on the patient and is negative except for what is stated in the HPI. Nursing and ancillary documentation was reviewed. [facility] Past Medical History Medical History Dysphagia Abnormal gait Vocal cord dysfunction Hearing loss Oral thrush Memory loss 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 Gout of big toe Dyslipidemia Hx of radiation therapy Prostate cancer Hx of malignant neoplasm of prostate Follows with Dr Castro Surgical History Surgical History History of colonoscopy last performed 2021 or 2022 History of loop recorder History of right inguinal hernia repair 1948 - x2 Family History Family History Father Family history of coronary artery disease Mother Family history of arthritis Grandparent Family history of coronary artery disease Other Family history of malignant neoplasm of breast in first degree relative Social History Social History Social History: Caffeine-none Has a daughter Smoking status: Never smoker Second hand tobacco smoke exposure: Yes Alcohol intake: never Substance use: never Substance use type: does not use Do You Feel Safe in your Home?: Yes Lack of Transportation: No Lack of Food: Never True Current Housing: I Have Housing Concerned About Future Housing: No Difficulty Paying Gas/Electric Bills: No Difficulty Paying for Meds: No Currently Unemployed: No Education: Bachelor's Degree Difficulty w/ Childcare or Family Care: No Living arrangements: alone Occupation/Education: retired Gender identity (if verbalized by the patient): Male Sexual Orientation (if Verbalized by the Patient): Straight or Heterosexual Spiritual care concerns: No Exam Narrative: GENERAL: Well-appearing, well-nourished, and in no acute distress. HEAD: Normocephalic, atraumatic. EYES: PERRLA and EOMI. ENT: Nares clear, no rhinorrhea or epistaxis. Mucous membranes moist. NECK: Supple. CHEST: Clear to auscultation. No respiratory distress. HEART: Regular rate and rhythm. No murmur heard. Normal peripheral pulses. ABDOMEN: Soft, nontender, nondistended, normal active bowel sounds. There is a G-tube in place the bolster has slid up on the tube there is granulation tissue present at the insertion site EXTREMITIES: Normal range of motion. No edema. SKIN: Warm, dry, no rash. NEURO: No focal deficits. Alert and oriented to baseline. PSYCH: Normal mood and affect. Course Vital Signs Vital signs: Vital Signs Temperature 36.4 C 07/24/24 15:48 Pulse Rate 62 07/24/24 15:48 Respiratory Rate 07/24/24 15:48 Blood Pressure 116/55 L 07/24/24 15:48 Pulse Oximetry 100 07/24/24 15:48 Oxygen Delivery Room Air 07/24/24 15:48 Temperature 36.4 C 07/24/24 15:48 Pulse Rate 62 07/24/24 15:48 Respiratory Rate 07/24/24 15:48 Blood Pressure 116/55 L 07/24/24 15:48 Pulse Oximetry 100 07/24/24 15:48 Oxygen Delivery Room Air 07/24/24 15:48 Medical Decision Making [facility] Narrative Medical decision making narrative: Tube is intact and secured the bolster was moved back into the correct position and was released secured Vital Signs Vital Signs: Vital Signs Temperature 36.4 C 07/24/24 15:48 Pulse Rate 62 07/24/24 15:48 Respiratory Rate 07/24/24 15:48 Blood Pressure 116/55 L 07/24/24 15:48 Pulse Oximetry 100 07/24/24 15:48 Oxygen Delivery Room Air 07/24/24 15:48 Temperature 36.4 C 07/24/24 15:48 Pulse Rate 62 07/24/24 15:48 Respiratory Rate 20 07/24/24 15:48 Blood Pressure 116/55 L 07/24/24 15:48 Pulse Oximetry 100 07/24/24 15:48 Oxygen Delivery Room Air 07/24/24 15:48 Discharge Plan Discharge Clinical Impression: Complication of gastrostomy tube Patient Disposition: Home Condition: Stable Instructions: Antibiotic Form, How to Use and Care for Your PEG Tube (DC) Patient Language: Cape Verdean Prescriptions: No Action bisacodyl [Dulcolax (bisacodyl)] 5 mg tablet,delayed release (DR/EC) 5 mg PO BID guaifenesin [Mucinex] 600 mg tablet extended release 12hr 600 mg PO DAILY midodrine 5 mg tablet 5 mg PO TID Qty: 90 0RF Rx Instructions: do not give last dose of day after 6PM or within 4 hrs of bedtime hydroxyzine HCl 25 mg tablet See Rx Instructions PO QHS PRN (Reason: insomnia) Qty: 30 0RF Rx Instructions: 1-2 tablets orally every day at bedtime PRN; Follow-up/Referrals: Anjelica Horner MD [Primary Care Provider] - Time of Disposition: 16:01
[2024-07-24 16:42] VITALS: BP 129/48; PULSE 62; RESP 14; O2SAT 94
[2024-07-24 16:53] LABS: Add Urine Microscopic? YES; Appearance Urine Clear (Clear); Bacteria Urine None Seen /hpf; Bilirubin Urine Negative (Negative); Blood Urine 1+ (Negative); Color Urine Yellow (Yellow); Glucose Urine UA Negative (Negative); Ketones Urine Negative (Negative); Leukocyte Esterase Ur Negative LEU/UL (Negative); Need Manual Microscopic Reviewed; Nitrate Urine Negative (Negative); Non Pathogenic Casts 0-2; Protein Urine Negative (Negative); RBC Urine 21-50 /hpf (0-2); Specific Grav Ur 1.013 (1.001-1.035); Squamous Epithelial Cell Urine None Seen /hpf (Few); WBC Urine 0-5 /hpf (0-3)
[2024-07-24 17:13] VITALS: BP 135/64; PULSE 60; RESP 13; O2SAT 91
--- OUTSIDE RECORDS SUMMARY | 2024-07-24 17:13 | XMS_ITS | Encounter Summary ---
Author Organization [facility] Address [address] [place] [address] Care Team Providers Care Air Tucker Name Role Phone Yessica Saenz MD Primary Care Provider +1- [phone] Yessica Saenz MD Primary Care Provider +1- [phone] Rajinder Nicholson MD Primary Care Provider +1- [phone] Nova Brumfield MD Primary Care Provider Phyllis Horner MD Primary Care Provider Encounter Details Date Type Department Care Team (Late st Contact Info) Description 05/23/2016 [facility] Only [facility] ProviderCarmela MD [address] [place] [address] Social History Tobacco Use Types Packs/Day Years Used Date Smoking Tobacco: Never Alcohol Use Standard Drinks/Week Comments No 0 (1 standard drink = 0.6 oz pur e alcohol) Sex and Gender Information Value Date Recorded Sex Assigned at Not on file 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
--- OUTSIDE RECORDS SUMMARY | 2024-07-24 17:13 | XMS_ITS | Encounter Summary ---
Author Organization [facility] Address [address] [facility] [address] [place] [address] Care Team Providers Care Assembly Repairer Name Role Phone Yessica Saenz MD Primary Care Provider +1- [phone] Rajinder Nicholson MD Primary Care Provider +1- [phone] Nova Brumfield MD Primary Care Provider Phyllis Horner MD Primary Care Provider Encounter Details Date Type Department Care Team (Late st Contact Info) Description 07/04/2016 Orders Only [facility] ProviderCarmela MD [address] [place] [address] Social History Tobacco Use Types Packs/Day Years Used Date Smoking Tobacco: Never Alcohol Use Standard Drinks/Week Comments No 0 (1 standard drink = 0.6 oz pur e alcohol) Sex and Gender Information Value Date Recorded Sex Assigned at Not on file 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
--- OUTSIDE RECORDS SUMMARY | 2024-07-24 17:13 | XMS_ITS | Clinical Summary ---
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
--- OUTSIDE RECORDS SUMMARY | 2024-07-24 17:13 | XMS_ITS | Encounter Summary ---
Author Organization [facility] Address [address] [facility] [place] [address] Care Team Providers Care Point Of Sale Associate Name Role Phone Yessica Saenz MD Primary Care Provider +1- [phone] Yessica Saenz MD Primary Care Provider +1- [phone] Rajinder Nicholson MD Primary Care Provider +1- [phone] Nova Brumfield MD Primary Care Provider Phyllis Horner MD Primary Care Provider Encounter Details Date Type Department Care Team (Late st Contact Info) Description 02/25/2016 [facility] Only [facility] ProviderCarmela MD [address] [place] [address] Social History Tobacco Use Types Packs/Day Years Used Date Smoking Tobacco: Never Alcohol Use Standard Drinks/Week Comments No 0 (1 standard drink = 0.6 oz pur e alcohol) Sex and Gender Information Value Date Recorded Sex Assigned at Not on file 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
--- OUTSIDE RECORDS SUMMARY | 2024-07-24 17:13 | XMS_ITS | Encounter Summary ---
Author Organization [facility] Address [address] [facility] [address] [facility] [address] [place] [address] Care Team Providers Care Digital Media Analyst Name Role Phone Yessica Saenz MD Primary Care Provider +1- [phone] Yessica Saenz MD Primary Care Provider +1- [phone] Rajinder Nicholson MD Primary Care Provider +1- [phone] Nova Brumfield MD Primary Care Provider Phyllis Horner MD Primary Care Provider Encounter Details Date Type Department Care Team (Late st Contact Info) Description 04/07/2016 Orders Only [facility] ProviderCarmela MD [address] [place] [address] Social History Tobacco Use Types Packs/Day Years Used Date Smoking Tobacco: Never Alcohol Use Standard Drinks/Week Comments No 0 (1 standard drink = 0.6 oz pur e alcohol) Sex and Gender Information Value Date Recorded Sex Assigned at Not on file 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
--- OUTSIDE RECORDS SUMMARY | 2024-07-24 17:13 | XMS_ITS | Referral Summary ---
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
--- OUTSIDE RECORDS SUMMARY | 2024-07-24 17:13 | XMS_ITS | Continuity of Care Document ---
Author Organization [facility] Address [address] [place] [address] Phone Care Team Providers Care Care Nurse Rn Name Role Phone Alber Gunter MD Unavailable Unavailable Advance Directives Directive Yes / No Effective Date File Name No Information Encounters Encounter Description Practice Location Reason(s) For Visit Diagnoses Date Provider Providers Copied on Encounter [facility], [address], [place], [place], [id number], [place] tel:[phone] [facility] No Information [address] [facility] [address], [place], [place], [id number], [place]. tel:[phone] Family History Family Member Type Diagnosis Age At Onset No Information Payers Payer name Insurance type Covered republican ID Authoriza tion(s) No Information Social History [...]
== END 2024-07-24 17:21 | disposition home or self-care (01) ==
PROVIDERS: Emergency Provider Emergency Medicine; PCP Family Medicine
DX: Z43.1 Encounter for attention to gastrostomy (principal); E78.5 Hyperlipidemia, unspecified; Z85.46 Personal history of malignant neoplasm of prostate; Z92.3 Personal history of irradiation; Z77.22 Contact with and (suspected) exposure to environmental tobacco smoke (acute) (chronic)
CPT/HCPCS: 81001; 99283

== ENCOUNTER 2024-08-03 12:12 | Inpatient (IN) | payer OTHER, SELFPAY ==
--- NOTE | ~2024-08-03 | CT_ITS ---
EXAMINATION: CT cervical spine wo con DATE: 08/03/2024 12:44 INDICATION: Fall with head injury TECHNIQUE: Computed tomography (CT) of the cervical spine was performed without intravenous contrast. Automated exposure control and iterative reconstruction technique were employed. The dose-length pro duct was 150.63 mGy-cm. COMPARISON: None FINDINGS: Alignment is normal. Vertebral body heights are normal. No fracture. Moderate disc height loss with s evere uncovertebral osteoarthritis at C5-C6. Mild disc height loss with additional mild to moderate u ncovertebral osteoarthritis at C2-C3 through C4-C5. There is fusion across the bilateral C3-C4 uncove rtebral joints. Additional mild disc height loss at a few levels in the upper thoracic spine where th ere are also bridging osteophytes at multiple levels consistent with diffuse idiopathic skeletal hype rostosis (DISH). Multilevel moderate to severe cervical and upper thoracic facet osteoarthritis. Ther e is solid osseous fusion across the bilateral C3-C4 facet joints. Disc bulges and posterior disc ost eophyte complexes resulting in multilevel mild central canal stenosis from C3-C4 through C6-C7. The f acet and uncovertebral osteoarthritis contributing to multilevel neural foraminal stenosis, moderate severity on the right at C2-C3, bilaterally at C3-C4 on the left at C4-C5 and bilaterally at C5-C6 wi th mild neural foraminal stenosis at the remaining cervical levels. Bilateral atherosclerotic coronar y artery calcification is. Multinodular goiter with nodules measuring up to 1.5 similar on the left a nd 1.8 cm on the right. Calcified right apical nodule consistent with old granulomatous disease. IMPRESSION: 1. Moderate cervical spondylosis. No acute osseous abnormality. Reviewed, dictated and finalized at location A.
--- NOTE | ~2024-08-03 | CT_ITS ---
EXAMINATION: CT brain wo con DATE: 08/03/2024 12:45 INDICATION: Fall with head injury TECHNIQUE: Computed tomography (CT) of the head was performed without intravenous contrast. Sagittal and coronal reconstructions were performed. The mA was adjusted according to patient size. Iterative reconstruction technique was employed. The dose-length product was 605.33 mGy-cm. COMPARISON: head CT dated 06/13/2024 FINDINGS: No fracture. No acute intracranial hemorrhage, acute infarction or abnormal extra axial fluid collect ion. There is mild scattered white matter hypoattenuation consistent with chronic small vessel ischem ic disease. Symmetric prominence of the sulci and ventricles consistent with mild age-appropriate dif fuse cerebral volume loss. No mass/mass effect. The orbits, paranasal sinuses and mastoid air cells a re normal. IMPRESSION: 1. Normal aging brain. No fracture or acute intracranial process. Reviewed, dictated and finalized at location A.
--- NOTE | ~2024-08-03 | XR_ITS ---
XR chest 1V portable Ordering provider: Kristen Jay History: 83 years Male with . Multiple fall . Comparison: June 13 2024 FINDINGS: MEDIASTINUM: The cardiac silhouette is not enlarged. Device is projected over the left hemithorax. LUNGS: No infiltrates, effusions or pneumothorax. OTHER: No free air under the diaphragm. Degenerative changes of the spine. Pseudoarthrosis seen in th e right shoulder. IMPRESSION: No acute cardiopulmonary pathology. Reviewed, dictated and finalized at location A.
--- OUTSIDE RECORDS SUMMARY | 2024-08-03 12:14 | XMS_ITS | Encounter Summary ---
Author Organization [facility] Address [address] [facility] [facility] [address] [place] [address] Care Team Providers Care Customer Quality Specialist Name Role Phone Yessica Saenz MD Primary Care Provider +1- [phone] Yessica Saenz MD Primary Care Provider +1- [phone] Rajinder Nicholson MD Primary Care Provider +1- [phone] Nova Brumfield MD Primary Care Provider Phyllis Horner MD Primary Care Provider Encounter Details Date Type Department Care Team (Late st Contact Info) Description 04/07/2016 Orders Only [facility] ProviderCarmela MD [address] [place] [address] Social History Tobacco Use Types Packs/Day Years Used Date Smoking Tobacco: Never Alcohol Use Standard Drinks/Week Comments No 0 (1 standard drink = 0.6 oz pur e alcohol) Sex and Gender Information Value Date Recorded Sex Assigned at Not on file 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
--- OUTSIDE RECORDS SUMMARY | 2024-08-03 12:14 | XMS_ITS | Encounter Summary ---
Author Organization [facility] Address [address] [place] [address] Care Team Providers Care Technical Professional Name Role Phone Yessica Saenz MD Primary Care Provider +1- [phone] Rajinder Nicholson MD Primary Care Provider +1- [phone] Nova Brumfield MD Primary Care Provider Phyllis Horner MD Primary Care Provider Encounter Details Date Type Department Care Team (Late st Contact Info) Description 07/04/2016 Orders Only [facility] ProviderCarmela MD [address] [place] [address] Social History Tobacco Use Types Packs/Day Years Used Date Smoking Tobacco: Never Alcohol Use Standard Drinks/Week Comments No 0 (1 standard drink = 0.6 oz pur e alcohol) Sex and Gender Information Value Date Recorded Sex Assigned at Not on file 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
--- OUTSIDE RECORDS SUMMARY | 2024-08-03 12:15 | XMS_ITS | Encounter Summary ---
Author Organization [facility] Address [address] [place] [address] Care Team Providers Care Wordpress Developer Name Role Phone Yessica Saenz MD Primary Care Provider +1- [phone] Yessica Saenz MD Primary Care Provider +1- [phone] Rajinder Nicholson MD Primary Care Provider +1- [phone] Nova Brumfield MD Primary Care Provider Phyllis Horner MD Primary Care Provider Encounter Details Date Type Department Care Team (Late st Contact Info) Description 05/23/2016 Orders Only [facility] ProviderCarmela MD [address] [place] [address] Social History Tobacco Use Types Packs/Day Years Used Date Smoking Tobacco: Never Alcohol Use Standard Drinks/Week Comments No 0 (1 standard drink = 0.6 oz pur e alcohol) Sex and Gender Information Value Date Recorded Sex Assigned at Not on file 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
--- OUTSIDE RECORDS SUMMARY | 2024-08-03 12:15 | XMS_ITS | Continuity of Care Document ---
Author Organization [facility] Address [address] [place] [address] Phone Care Team Providers Care Manager Cleaning Name Role Phone Alber Gunter MD Unavailable Unavailable Advance Directives Directive Yes / No Effective Date File Name No Information Encounters Encounter Description Practice Location Reason(s) For Visit Diagnoses Date Provider Providers Copied on Encounter [facility], [address], [place], [place], [id number], [place] tel:[phone] [facility] No Information [address] [facility] [address], [place], [place], [id number], [place]. tel:[phone] Family History Family Member Type Diagnosis Age [...]
--- OUTSIDE RECORDS SUMMARY | 2024-08-03 12:15 | XMS_ITS | Referral Summary ---
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
--- OUTSIDE RECORDS SUMMARY | 2024-08-03 12:15 | XMS_ITS | Encounter Summary ---
Author Organization [facility] Address [address] [facility] [address] [place] [address] Care Team Providers Care Microbiology Lab Manager Name Role Phone Yessica Saenz MD Primary Care Provider +1- [phone] Yessica Saenz MD Primary Care Provider +1- [phone] Rajinder Nicholson MD Primary Care Provider +1- [phone] Nova Brumfield MD Primary Care Provider Phyllis Horenr MD Primary Care Provider Encounter Details Date Type Department Care Team (Late st Contact Info) Description 02/25/2016 Orders Only [facility] ProviderCarmela MD [address] [place] [address] Social History Tobacco Use Types Packs/Day Years Used Date Smoking Tobacco: Never Alcohol Use Standard Drinks/Week Comments No 0 (1 standard drink = 0.6 oz pur e alcohol) Sex and Gender Information Value Date Recorded Sex Assigned at Not on file 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
--- OUTSIDE RECORDS SUMMARY | 2024-08-03 12:15 | XMS_ITS | Clinical Summary ---
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
[2024-08-03 12:48] VITALS: BP 98/45; PULSE 83; RESP 16; TEMP 36.6; O2SAT 100
--- NOTE | 2024-08-03 13:13 | ED_ITS ---
HPI - Fall General Chief Complaint: Fall Stated Complaint: fall-head injury Time Seen by Provider: 08/03/24 13:12 Source: patient and family Limitations: no limitations History of Present Illness HPI Narrative: 83 years old white male came from home with a fall. Patient was walking around his bed tried to reach his walker, lost his balance and fell forward hit the front of his head on the bedside table, no loss of consciousness, Patient is telling me that he had left hip pain from previous falls. His daughter is telling me that he had 2 falls 2 days ago. He lives alone but his daughters alternating to take care of him. Patient denies any fever, chills, nausea, vomiting, chest pain, shortness of breath or back pain. Patient had feeding tube recently 3-4 weeks ago because of failure to thrive. His daughter is telling me that he is on 2 medications 1 for low blood pressure and the other 1 for prostatic hypertrophy. History of orthostatic hypotension, falls, aspiration pneumonia, dehydration, severe protein malnutrition Related Data Allergies Allergy/AdvReac Type Severity Reaction Status Date / Time No Known Allergies Allergy Unknown Verified 07/29/24 13:52 Review of Systems 2 Review of Systems: All systems reviewed & are unremarkable except as noted in HPI and below PMFSH Past Medical History Medical History Multinodular goiter OAB (overactive bladder) Dementia Dysphagia Abnormal gait Vocal cord dysfunction Hearing loss Oral thrush Memory loss 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 Gout of big toe Dyslipidemia Hx of radiation therapy Prostate cancer Hx of malignant neoplasm of prostate Follows with Dr Castro Surgical History Surgical History History of gastrostomy tube placement History of colonoscopy last performed 2021 or 2022 History of loop recorder History of right inguinal hernia repair 1948 - x2 Family History Family History Father Family history of coronary artery disease Mother Family history of arthritis Grandparent Family history of coronary artery disease Other Family history of malignant neoplasm of breast in first degree relative Social History Social History Social History: Caffeine-none Has a daughter Smoking status: Never smoker Second hand tobacco smoke exposure: Yes Alcohol intake: never Substance use: never Substance use type: does not use Do You Feel Safe in your Home?: Yes Lack of Transportation: No Lack of Food: Never True Current Housing: I Have Housing Concerned About Future Housing: No Difficulty Paying Gas/Electric Bills: No Difficulty Paying for Meds: No Currently Unemployed: No Education: Bachelor's Degree Difficulty w/ Childcare or Family Care: No Living arrangements: alone Occupation/Education: retired Gender identity (if verbalized by the patient): Male Sexual Orientation (if Verbalized by the Patient): Straight or Heterosexual Spiritual care concerns: No Exam 2 Narrative: General appearance: Well-developed, malnourished Skin: Normal color Head: Normocephalic, forehead vertical laceration 3 cm, no gapping, subcutaneous Eyes: Clear conjunctiva ENT: Oropharynx normal, ears normal, nose normal Neck: Supple, nontender Chest and respiratory: Airway patent, no respiratory distress, no accessory muscle use Heart: Regular rate/rhythm Abdomen: Soft, nontender, no organomegaly, quiet bowel sounds, feeding tube in place Vascular: Normal peripheral pulses, normal capillary refill. Musculoskeletal: Normal range of motion, nontender back Neurologic: Alert and oriented ?3 Course Vital Signs Vital signs: Vital Signs Temperature 36.6 C 08/03/24 12:48 Pulse Rate 83 08/03/24 12:48 Respiratory Rate 16 08/03/24 12:48 Blood Pressure 98/45 L 08/03/24 12:48 Pulse Oximetry 100 08/03/24 12:48 Temperature 36.6 C 08/03/24 12:48 Pulse Rate 83 08/03/24 12:48 Respiratory Rate 16 08/03/24 12:48 Blood Pressure 98/45 L 08/03/24 12:48 Pulse Oximetry 100 08/03/24 12:48 MDM - Fall MDM Narrative Medical decision making narrative: Patient came to the ED with multiple falls, history of dizziness and balance disorder Vital signs showing blood pressure 98/45, patient have history of orthostatic hypotension and currently on midodrine Physical examination showing mild nourished patient was feeding tube in place Differential diagnosis include electrolyte imbalance, dehydration, my nutrition, failure to thrive, general weakness urinary tract infection Blood workup today includes CBC, CMP, HEMOGLOBIN 10.3, Urinalysis SHOWED NO EVIDENCE OF INFECTION Chest x-ray NO ACUTE ABNORMALITIES CT head and CT cervical spine without contrast showed no acute abnormality DIAGNOSIS URINARY TRACT INFECTION, MULTIPLE FALLS, ORTHOSTATIC HYPOTENSION, FAILURE TO THRIVE, FEEDING TUBE ADMIT TO HOSPITALIST Differential Diagnosis Differential diagnosis: Likely other (As above) Medical Records Attestation: I reviewed the patient's medical records. Lab Data Attestation: I reviewed the patient's lab results. 08/03/24 15:18 08/03/24 15:18 Labs: Lab Results 08/03/24 Range/Units 15:18 WBC 6.8 (4.5-10.0) K/mm3 RBC 3.70 L (4.6-6.20) M/mm3 Hgb 10.3 L (14.0-18.0) g/dL Hct 33.2 L (42.0-52.0) % MCV 89.7 (80-100) fl MCH 27.8 (26-34) pg MCHC 31.0 L (32-36) g/dl RDW 16.2 H (11.5-14.5) % Plt Count 196 (150-375) k/mm3 MPV 10.0 (7.4-10.4) fl Immature Gran % (Auto) 0.3 (0-0.5) % Neut % (Auto) 80.4 H (45.5-73.1) % Lymph % (Auto) 9.6 L (18.3-44.2) % Humphreys % (Auto) 9.3 H (2.6-8.5) % Eos % (Auto) 0.0 (0-4.4) % Baso % (Auto) 0.4 (0.2-1.2) % Lymph # (Auto) 0.65 L (0.9-3.2) K/mm3 Humphreys # (Auto) 0.6 (0.1-0.6) K/mm3 Eos # (Auto) 0.0 (0-0.3) K/mm3 Baso # (Auto) 0.0 (0.0-0.1) K/mm3 Abs Immat Gran (auto) 0.02 (0.00-0.031) K/mm3 Absolute Neuts (auto) 5.4 (1.3-6.7) K/mm3 Absolute Nucleated RBC 0.000 (0.0-0.012) K/mm3 Nucleated RBC % 0.0 (0.0-0.2) % PT 15.7 H (11.1-14.7) Seconds INR 1.2 APTT 26.0 (22.3-36.8) Seconds Sodium 137 (137-145) mmol/L Potassium 4.3 (3.4-5.0) mmol/L Chloride 102 (98-107) mmol/L Carbon Dioxide 32 H (22-30) mmol/L Anion Gap 3 L (4-12) mmol/L BUN 30 H D (9-20) mg/dL Creatinine 0.74 (0.7-1.3) mg/dL Estim Creat Clear Calc 59 ml/min Estimated GFR > 60 (59 - ) Glucose 101 (65-110) mg/dL Calcium 8.6 (8.4-10.2) mg/dL Total Bilirubin 0.6 (0.2-1.3) mg/dL AST 56 (17-59) U/L ALT 50 (6-50) U/L Alkaline Phosphatase 92 (38-126) U/L Total Protein 7.0 (6.3-8.2) g/dL Albumin 3.5 (3.5-5.1) g/dL Urine Color Yellow (Yellow) Urine Appearance Cloudy H (Clear) Urine pH 7.5 (5.0-9.0) Ur Specific [place] 1.015 (1.001-1.035) Urine Protein 1+ H (Negative) mg/dL Urine Glucose (UA) Negative (Negative) mg/dL Urine Ketones Negative (Negative) mg/dL Ur Blood (Man) Negative (Negative) Urine Nitrate Positive H (Negative) Urine Bilirubin Negative (Negative) Urine Urobilinogen 1.0 (<2.0) mg/dL Add Ur Microanalysis Reviewed Leukocyte Esterase Rfl 3+ H (Negative) OLGA/UL Urine RBC 3-5 H (0-2) /hpf Urine WBC 51-100 H (0-3) /hpf Ur Squamous Epith Cells None seen (Few) /hpf Urine Bacteria 4+ H /hpf Urine Casts 0-2 Imaging Data My impression: Impressions Head CT 08/03/24 12:48 IMPRESSION: 1. Normal aging brain. No fracture or acute intracranial process. Cervical Spine CT 08/03/24 12:51 IMPRESSION: 1. Moderate cervical spondylosis. No acute osseous abnormality. Chest X-Ray 08/03/24 14:08 IMPRESSION: No acute cardiopulmonary pathology. Radiologist's impression: Impressions Head CT 08/03/24 12:48 IMPRESSION: 1. Normal aging brain. No fracture or acute intracranial process. Cervical Spine CT 08/03/24 12:51 IMPRESSION: 1. Moderate cervical spondylosis. No acute osseous abnormality. Critical Care Time Critical Care Time Critical Care Time: No Discharge Plan Discharge Clinical Impression: Urinary tract infection, Multiple falls, Adult failure to thrive Patient Disposition: Still a Patient Condition: Stable Patient Language: Wallisian Prescriptions: No Action oxybutynin chloride 5 mg tablet 5 mg PO BID Qty: 60 1RF midodrine 5 mg tablet 5 mg PO TID Qty: 90 3RF Rx Instructions: do not give last dose of day after 6PM or within 4 hrs of bedtime hydroxyzine HCl 25 mg tablet See Rx Instructions PO QHS PRN (Reason: insomnia) Qty: 180 0RF Rx Instructions: 1-2 tablets orally every day at bedtime PRN; Follow-up/Referrals: Anjelica Horner MD [Primary Care Provider] -
--- OUTSIDE RECORDS SUMMARY | 2024-08-03 13:27 | XMS_ITS | Encounter Summary ---
Author Organization [facility] Address [address] [place] [address] Care Team Providers Care Intervention Analyst Name Role Phone Yessica Saenz MD Primary Care Provider +1- [phone] Yessica Saenz MD Primary Care Provider +1- [phone] Rajinder Nicholson MD Primary Care Provider +1- [phone] Nova Brumfield MD Primary Care Provider Phyllis Horner MD Primary Care Provider Encounter Details Date Type Department Care Team (Late st Contact Info) Description 02/25/2016 Orders Only [facility] ProviderCarmela MD [address] [place] [address] Social History Tobacco Use Types Packs/Day Years Used Date Smoking Tobacco: Never Alcohol Use Standard Drinks/Week Comments No 0 (1 standard drink = 0.6 oz pur e alcohol) Sex and Gender Information Value Date Recorded Sex Assigned at Not on file 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
--- OUTSIDE RECORDS SUMMARY | 2024-08-03 13:27 | XMS_ITS | Referral Summary ---
Author Organization [facility] Address 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
--- OUTSIDE RECORDS SUMMARY | 2024-08-03 13:27 | XMS_ITS | Encounter Summary ---
Author Organization [facility] Address [address] [place] [address] Care Team Providers Care General Production Laborer Name Role Phone Yessica Saenz MD Primary Care Provider +1- [phone] Rajinder Nicholson MD Primary Care Provider +1- [phone] Nova Brumfield MD Primary Care Provider Phyllis Horner MD Primary Care Provider Encounter Details Date Type Department Care Team (Late st Contact Info) Description 07/04/2016 Orders Only [facility] ProviderCarmela MD [address] [place] [address] Social History Tobacco Use Types Packs/Day Years Used Date Smoking Tobacco: Never Alcohol Use Standard Drinks/Week Comments No 0 (1 standard drink = 0.6 oz pur e alcohol) Sex and Gender Information Value Date Recorded Sex Assigned at Not on file 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
--- OUTSIDE RECORDS SUMMARY | 2024-08-03 13:27 | XMS_ITS | Encounter Summary ---
Author Organization [facility] Address [address] [place] [address] Care Team Providers Care Head Of Academic Technology Name Role Phone Yessica Saenz MD Primary Care Provider +1- [phone] Yessica Saenz MD Primary Care Provider +1- [phone] Rajinder Nicholson MD Primary Care Provider +1- [phone] Nova Brumfield MD Primary Care Provider Phyllis Horner MD Primary Care Provider Encounter Details Date Type Department Care Team (Late st Contact Info) Description 05/23/2016 Orders Only [facility] ProviderCarmela MD [address] [place] [address] Social History Tobacco Use Types Packs/Day Years Used Date Smoking Tobacco: Never Alcohol Use Standard Drinks/Week Comments No 0 (1 standard drink = 0.6 oz pur e alcohol) Sex and Gender Information Value Date Recorded Sex Assigned at Not on file 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
--- OUTSIDE RECORDS SUMMARY | 2024-08-03 13:27 | XMS_ITS | Encounter Summary ---
Author Organization [facility] Address [address] [place] [address] Care Team Providers Care Event Security Officer Name Role Phone Yessica Saenz MD Primary Care Provider +1- [phone] Yessica Saenz MD Primary Care Provider +1- [phone] Rajinder Nicholson MD Primary Care Provider +1- [phone] Nova Brumfield MD Primary Care Provider Phyllis Horner MD Primary Care Provider Encounter Details Date Type Department Care Team (Late st Contact Info) Description 04/07/2016 Orders Only [facility] ProviderCarmela MD [address] [place] [address] Social History Tobacco Use Types Packs/Day Years Used Date Smoking Tobacco: Never Alcohol Use Standard Drinks/Week Comments No 0 (1 standard drink = 0.6 oz pur e alcohol) Sex and Gender Information Value Date Recorded Sex Assigned at Not on file 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
--- OUTSIDE RECORDS SUMMARY | 2024-08-03 13:27 | XMS_ITS | Clinical Summary ---
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 ADVANTAGE CHOICE PPO [employer] CHOICE PPO Care Teams Zipper Trimmer Hand Relationship Specialty Start Date End Date Phyllis Horner MD PCP - General Family Practice 08/11/20
--- OUTSIDE RECORDS SUMMARY | 2024-08-03 13:28 | XMS_ITS | Continuity of Care Document ---
Author Organization [facility] Address [address] [place] [address] Phone Care Team Providers Care Slab Inspector Name Role Phone Alber Gunter MD Unavailable Unavailable Advance Directives Directive Yes / No Effective Date File Name No Information Encounters Encounter Description Practice Location Reason(s) For Visit Diagnoses Date Provider Providers Copied on Encounter [facility], [address], [place], [place], [id number], [place] tel:[phone] [facility] No Information [address] [facility], [place], [place], [id number], [place]. tel:[phone] Family History Family Member Type Diagnosis Age [...]
[2024-08-03] MEDS: SODIUM CHLORIDE 0.9% IV 1,000 ML 999 ML IV CONT (15:10)
[2024-08-03 15:24] LABS: Basophils Percent Auto 0.4 % (0.2-1.2); Hematocrit 33.2 % (42.0-52.0); Hemoglobin 10.3 g/dL (14.0-18.0); Immature Granulocyte Absolute 0.02 K/mm3 (0.00-0.031); Immature Granulocyte Percent A 0.3 % (0-0.5); Lymphocytes Absolute Auto 0.65 K/mm3 (0.9-3.2); Lymphocytes Percent Auto 9.6 % (18.3-44.2); Mean Corpuscular Hemoglobin 27.8 pg (26-34); Mean Corpuscular Volume 89.7 fl (80-100); Monocytes Absolute Auto 0.6 K/mm3 (0.1-0.6); Monocytes Percent Auto 9.3 % (2.6-8.5); Neutrophils Absolute Auto 5.4 K/mm3 (1.3-6.7); Neutrophils Percent Auto 80.4 % (45.5-73.1); Platelet Count Result 196 k/mm3 (150-375); Red Cell Distribution Width 16.2 % (11.5-14.5); White Blood Count 6.8 K/mm3 (4.5-10.0)
[2024-08-03 15:39] LABS: Alanine Aminotransferase 50 U/L (6-50); Albumin Level 3.5 g/dL (3.5-5.1); Alkaline Phosphatase 92 U/L (38-126); Anion Gap 3 mmol/L (4-12); Aspartate Amino Transferase 56 U/L (17-59); Bilirubin,Total 0.6 mg/dL (0.2-1.3); Blood Urea Nitrogen 30 mg/dL (9-20); Calcium 8.6 mg/dL (8.4-10.2); Carbon Dioxide 32 mmol/L (22-30); Chloride 102 mmol/L (98-107); Estimated CRCL calculation 59 ml/min; Estimated Glomerular Filt Rate > 60; Glucose 101 mg/dL (65-110); Potassium 4.3 mmol/L (3.4-5.0); Sodium 137 mmol/L (137-145)
[2024-08-03 15:41] LABS: INR 1.2; Prothrombin Time 15.7 Seconds (11.1-14.7)
[2024-08-03 16:05] LABS: Add Urine Microscopic? YES; Appearance Urine Cloudy (Clear); Bacteria Urine 4+ /hpf; Bilirubin Urine Negative (Negative); Blood Urine Negative (Negative); Color Urine Yellow (Yellow); Glucose Urine UA Negative (Negative); Ketones Urine Negative (Negative); Leukocyte Esterase Ur 3+ LEU/UL (Negative); Need Manual Microscopic Reviewed; Nitrate Urine Positive (Negative); Non Pathogenic Casts 0-2; Protein Urine 1+ mg/dL (Negative); Specific Grav Ur 1.015 (1.001-1.035); Squamous Epithelial Cell Urine None Seen /hpf (Few); WBC Urine 51-100 /hpf (0-3); pH Urine 7.5 (5.0-9.0)
[2024-08-03] MEDS: SODIUM CHLORIDE 0.9% IV 1,000 ML 125 ML IV CONT (18:10)
--- NOTE | 2024-08-03 19:58 | ADMGEN ---
This patient, Jerman Bowen, was admitted to Medical Room 244-. Patient/family oriented to hospital policies and general routines including ID bracelet, bed and alarms, visiting hours, pain management, procedures, bathroom and other care routines, personal items, smoking policy, room service/diet, and visiting hours. Information on how to activate the Rapid Response Team has been discussed. Patient/Family are encouraged to report perceived risks to care and to ask questions if they do not understand what they are told or what they should do.
[2024-08-03 20:25] VITALS: BMI 17.6
[2024-08-03 20:30] VITALS: BP 163/57; PULSE 72; RESP 14; TEMP 36.8; O2SAT 97
--- NOTE | 2024-08-03 20:30 | P.HP_ITS ---
H&P: HPI History of Present Illness Date/Time: 08/03/24 20:30 Chief Complaint: Fall. Narrative: This is an 83-year-old male with history of orthostatic hypotension, falls, memory loss, benign prostatic hyperplasia, stand prostate cancer status post radiation who presented to the emergency department via EMS from home for evaluation after a fall. He lives in his own home and ambulates with a walker. Unfortunately, he has frequent falls and it is noted that he was admitted to the hospital not long ago with failure to thrive and he had a PEG tube placed at that time for. He did not want to go to rehab her nursing facility and he was discharged home; his daughters have been taking turns helping him out. Today he was walking around his bed trying to get his walker when he lost his balance and fell forward, hitting the front of his head on the bedside table. He denies syncope with today's fall. No fever, chills, sweats, cold or flu symptoms, chest pain, shortness a breath, pleuritic pain, palpitations, abdominal pain, nausea, vomiting, diarrhea, or dysuria. Since his recent discharge, he has been started on oxybutynin mg b.i.d. for overactive bladder. He was also referred to speech therapy due to oropharyngeal dysphagia. In the ED: Vital signs on arrival include a temperature of 97.9?, blood pressure 98/45, pulse 83, respiratory rate 16, SpO2 100% on room air. Labs are significant for WBC count 6.8, hemoglobin 10.3, carbon dioxide 32, BUN 30, creatinine 0.74. Urinalysis is positive for nitrates, 3+ leukocyte esterase, 51 to 100 WBC, and 4+ bacteria. Head and cervical spine CTs showed no acute findings. Chest x-ray was unremarkable. He was given a L of normal saline and ceftriaxone 1 g and he is being admitted in this setting for further treatment of urinary tract infection. Review of Systems Review of Systems: 12 systems were reviewed and are negativ e except for as per HPI. [facility] Past Medical History Medical History (Updated 08/03/24 @ 20:39 by Jenny Thompson PA-C) Chronic anemia Gout Prostate cancer status post radiation Overactive bladder Multinodular goiter Dementia Dysphagia Vocal cord dysfunction Hearing loss Memory loss 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 Dyslipidemia Surgical History Surgical History (Updated 08/03/24 @ 20:37 by Jenny Thompson PA-C) History of tonsillectomy History of gastrostomy tube placement History of colonoscopy last performed 2021 or 2022 History of loop recorder History of right inguinal hernia repair 1948 - x2 Family History Family History Father Family history of coronary artery disease Mother Family history of arthritis Grandparent Family history of coronary artery disease Other Family history of malignant neoplasm of breast in first degree relative Social History Social History (Updated 08/03/24 @ 23:21 by Jenny Thompson PA-C) Social History: Surrogate medical decision maker: Susana Huitron, daughter. Code status: Full code. Smoking status: Never smoker Second hand tobacco smoke exposure: Yes Alcohol intake: unknown Substance use: unknown Substance use type: does not use Do You Feel Safe in your Home?: Yes Lack of Transportation: No Lack of Food: Never True Current Housing: I Have Housing Concerned About Future Housing: No Difficulty Paying Gas/Electric Bills: No Difficulty Paying for Meds: No Currently Unemployed: No Education: Bachelor's Degree Difficulty w/ Childcare or Family Care: No Living arrangements: alone Occupation/Education: retired Spiritual care concerns: No Meds Home Medications and Allergies Home Medications ?Medication ?Instructions ?Recorded ?Confirmed ?Type oxybutynin chloride 5 mg tablet 5 mg PO BID #60 tabs 07/29/24 08/03/24 Rx midodrine 5 mg tablet 5 mg PO TID #90 tabs 08/01/24 08/03/24 Rx hydroxyzine HCl 25 mg tablet See Rx Instructions PO QHS PRN 08/02/24 08/03/24 Rx insomnia #180 tabs Allergies Allergy/AdvReac Type Severity Reaction Status Date / Time No Known Allergies Allergy Unknown Verified 07/29/24 13:52 Vital Signs Vital Signs - 24 hr 08/03/24 12:48 Temperature 97.9 F Pulse Rate 83 Respiratory Rate 16 Blood Pressure 98/45 L Pulse Oximetry 100 Exam Narrative: General: Chronically ill-appearing elderly gentleman supine in bed. Weight: 51 kg. BMI: 17.6. HEENT: Abrasion on the forehead. PERRL, EOMI. Sclera anicteric. Tacky mucous membranes. Neck: Supple. Respiratory: Lungs are clear to auscultation bilaterally. Cardiovascular: Regular rate and rhythm with S1-S2. Gastrointestinal: Abdomen is soft, flat, nontender, and nondistended with positive bowel sounds. G-tube site is clean, dry, and intact. Skin: Warm and dry. No rash or lesions on limited exam. Extremities: No cyanosis, clubbing, or edema. Radial and pedal pulses intact. Neurological: Alert to name, age, and date of . He thinks he is in [place]. Cranial nerves 2-12 are grossly intact. Speech is clear. No facial asymmetry. Muscle atrophy. No gross focal deficits but generally weak. Psychiatric: Pleasantly confused and cooperative. H&P: Results Labs Labs: Short CBC 08/03/24 Range/Units 15:18 WBC 6.8 (4.5-10.0) K/mm3 Hgb 10.3 L (14.0-18.0) g/dL Hct 33.2 L (42.0-52.0) % Plt Count 196 (150-375) k/mm3 BMP 08/03/24 15:18 Sodium 137 Potassium 4.3 Chloride 102 Carbon Dioxide 32 H BUN 30 H D Creatinine 0.74 Glucose 101 Calcium 8.6 Liver Function 08/03/24 Range/Units 15:18 Total Bilirubin 0.6 (0.2-1.3) mg/dL AST 56 (17-59) U/L ALT 50 (6-50) U/L Alkaline Phosphatase 92 (38-126) U/L Albumin 3.5 (3.5-5.1) g/dL Urine 08/03/24 Range/Units 15:18 Urine Color Yellow (Yellow) Urine Appearance Cloudy H (Clear) Urine pH 7.5 (5.0-9.0) Ur Specific [place] 1.015 (1.001-1.035) Urine Protein 1+ H (Negative) mg/dL Urine Glucose (UA) Negative (Negative) mg/dL Imaging Head CT 08/03/24 12:48 IMPRESSION: 1. Normal aging brain. No fracture or acute intracranial process. Cervical Spine CT 08/03/24 12:51 IMPRESSION: 1. Moderate cervical spondylosis. No acute osseous abnormality. Chest X-Ray 08/03/24 14:08 IMPRESSION: 1. No acute cardiopulmonary pathology. Assessment and Plan Assessment and plan (1) Urinary tract infection: Code(s): N39.0 - Urinary tract infection, site not specified Status: Acute (2) Frequent falls: Code(s): R29.6 - Repeated falls Status: Acute (3) Orthostatic hypotension: Code(s): I95.1 - Orthostatic hypotension Status: Acute (4) Chronic anemia: Code(s): D64.9 - Anemia, unspecified Status: Acute (5) Overactive bladder: Code(s): N32.81 - Overactive bladder Status: Acute Plan The patient presented to the emergency department for evaluation after a fall this morning with head trauma as detailed in HPI. Labs, imaging, EKG, and all reports were personally reviewed. Unfortunately he has frequent falls, some of which are likely due to to ongoing issues with orthostatic hypotension. There were no reports of syncope. Workup today shows that he is a bit dehydrated and it appears that he has urinary tract infection. We will continue with ceftriaxone, pending urine culture. He will be hydrated overnight. Monitor orthostatic vital signs and continue midodrine. He was recently started on oxybutynin for overactive bladder which could definitely be contributing to his orthostasis thus we will hold that for now. Same for hydroxyzine. Trial quetiapine tonight as he is very restless and is constantly pulling at his tubes in trying to get out of bed. Monitor pre and postvoid residuals to rule out urinary retention. Anemia is stable on review of previous labs. His home medications will be reviewed and resumed as appropriate. Findings and treatment plan were discussed with the patient. The patient's medical management will be taken over by the hospitalist team in a.m. Quality VTE Prophylaxis VTE prophylaxis: mechanical ordered If No VTE Prophylaxis Answer both mechanical and pharmacologic: Reason no pharmacologic proph: medical contraindication (fall risk) The patient has been admitted under observation status. Hospitalist [facility] Advance Care Plan I have confirmed that the patient's Advanced Care Plan is present, code status is documented, or surrogate decision maker is listed in patient medical record.: Yes Medication Reconciliation I have utilized all available resources to obtain, update and review the legacy health ients current medications (includes all prescriptions, OTC, herbals, cannabis, and nutritional supplements).: Yes
[2024-08-03] MEDS: SODIUM CHLORIDE 0.9% IV 1,000 ML 100 ML IV CONT (21:14)
[2024-08-03 21:37] VITALS: O2SAT 97
[2024-08-03] MEDS: QUEtiapine FUMARATE 12.5 MG TABLET PO (23:30)
[2024-08-04] VITALS (9 sets, daily range): BP systolic 114–148; BP diastolic 42–84; PULSE 60–86; RESP 16–18; TEMP 36.3–37.2; O2SAT 90–98
--- NOTE | 2024-08-04 | PC.NURSE ---
multiple calls placed to patient's daughters, unable to get ahold of either of them regarding patient's tube feeds. The last known order for patient's tube feeds were as follows: Jevity 1.5 300mL bolus QID with 150mL free water flush q4hr.
[2024-08-04 05:28] LABS: Hematocrit 31.4 % (42.0-52.0); Hemoglobin 9.8 g/dL (14.0-18.0); Mean Corpuscular HGB Conc 31.2 g/dl (32-36); Mean Corpuscular Hemoglobin 27.8 pg (26-34); Mean Platelet Volume 10.7 fl (7.4-10.4); Platelet Count Result 180 k/mm3 (150-375); Red Blood Count 3.53 M/mm3 (4.6-6.20); Red Cell Distribution Width 15.9 % (11.5-14.5); White Blood Count 5.4 K/mm3 (4.5-10.0)
[2024-08-04 05:35] LABS: Anion Gap 3 mmol/L (4-12); Blood Urea Nitrogen 19 mg/dL (9-20); Calcium 8.4 mg/dL (8.4-10.2); Carbon Dioxide 27 mmol/L (22-30); Chloride 107 mmol/L (98-107); Estimated CRCL calculation 51 ml/min; Estimated Glomerular Filt Rate > 60; Glucose 80 mg/dL (65-110); Potassium 3.9 mmol/L (3.4-5.0); Sodium 137 mmol/L (137-145)
[2024-08-04 07:20] LABS: Phosphorus 2.6 mg/dL (2.5-4.5)
[2024-08-04] MEDS: MIDODRINE HCL 2.5 MG TABLET 5 MG PO ×3 (10:10→16:35)
--- NOTE | 2024-08-04 10:22 | P.PNIM_ITS ---
Progress Note: A&P Assessment and Plan (1) Urinary tract infection: Code(s): N39.0 - Urinary tract infection, site not specified Status: Acute Assessment and Plan: * Urinalysis is positive for nitrates, 3+ leukocyte esterase, 51 to 100 WBC, and 4+ bacteria. * Urine culture pending. * Ceftriaxone 1 gram IVPB daily. * WBC 5.4. Creatinine 0.67. (2) Frequent falls: Code(s): R29.6 - Repeated falls Status: Acute Assessment and Plan: * PT/OT. (3) Orthostatic hypotension: Code(s): I95.1 - Orthostatic hypotension Status: Acute Assessment and Plan: * Supine 144/75 HR 86, Sitting 114/42, Standing 148/84 * Midodrine 5 mg PO TID. (4) Chronic anemia: Code(s): D64.9 - Anemia, unspecified Status: Acute Assessment and Plan: * H&H today is 9.8/31.4. * Trend level. (5) Overactive bladder: Code(s): N32.81 - Overactive bladder Status: Acute Assessment and Plan: * He was recently started on oxybutynin for overactive bladder which could definitely be contributing to his orthostasis thus we will hold that for now. * Monitor pre and postvoid residuals to rule out urinary retention. Subjective Date/time seen: 08/04/24 10:22 Interval history: Patient sitting up in bed. Stating that he needs to drive home to [place]. Patient denies chest pain, palpitations, headache, dizziness, nausea, or vomiting. Review of Systems Review of Systems: All systems reviewed & are unremarkable except as noted in HPI and below Exam Const: General: comfortable and no acute distress Resp: Effort & Inspection: normal respiratory effort Auscultation: clear to auscultation bilaterally Cardio: Rate: regular rate Rhythm: regular rhythm GI: GI Palp: Yes Soft to palpation Auscultation: normal bowel sounds Skin: Other: 3 cm laceration to forehead vertical, no drainage at present. Neuro: Speech: normal speech Extrem: General: no pedal edema Psych: Other: Pleasantly confused and cooperative. Objective Data Vital Signs Vital Signs: Vital Signs - 24 hr 08/03/24 12:48 08/03/24 20:00 08/03/24 20:30 Temperature 97.9 F 98.2 F Pulse Rate 83 72 Respiratory Rate 16 14 Blood Pressure 98/45 L 163/57 H Pulse Oximetry 100 97 Oxygen Delivery Room Air Fraction of Inspired Oxygen 08/03/24 21:37 08/04/24 06:15 08/04/24 09:36 Temperature 99.0 F 97.4 F L Pulse Rate 66 86 Respiratory Rate 16 16 Blood Pressure 134/60 144/75 H Pulse Oximetry 97 97 90 Oxygen Delivery Room Air Fraction of Inspired Oxygen 21 08/04/24 09:39 08/04/24 09:47 Temperature 97.5 F L 97.5 F L Pulse Rate Respiratory Rate 16 16 Blood Pressure 114/42 L 148/84 H Pulse Oximetry Oxygen Delivery Fraction of Inspired Oxygen Intake/Output Intake/Output: Intake & Output 08/01/24 08/02/24 08/03/24 08/04/24 23:59 23:59 23:59 23:59 Intake Total 1389.6 1000 Output Total 25 700 Balance 1364.6 300 Meds/Results Medications: Active Medications Generic Name Dose Route Start Last Admin Trade Name Samuelq PRN Reason Stop Dose Admin Acetaminophen 650 mg 08/03/24 17:25 Acetaminophen 325 Mg Tablet PO Q4H PRN Mild Pain (1-3) or Fever Ceftriaxone Sodium 1 gm in 50 mls @ 100 mls/hr 08/03/24 17:00 08/03/24 18:40 Rocephin 1 Gm/Ns 50 Ml IVPB Infused Q24H [place]O Infusion Midodrine 5 mg 08/04/24 09:00 08/04/24 10:10 Midodrine Hcl 2.5 Mg Tablet PO 5 mg TID PORTILLO Administration Radiology Results: ITS Impressions Head CT 08/03/24 12:48 IMPRESSION: 1. Normal aging brain. No fracture or acute intracranial process. Cervical Spine CT 08/03/24 12:51 IMPRESSION: 1. Moderate cervical spondylosis. No acute osseous abnormality. Chest X-Ray 08/03/24 14:08 IMPRESSION: No acute cardiopulmonary pathology. Labs Labs: Laboratory Results - last 24 hr 08/03/24 08/04/24 15:18 04:14 WBC 6.8 5.4 RBC 3.70 L 3.53 L Hgb 10.3 L 9.8 L Hct 33.2 L 31.4 L MCV 89.7 89.0 MCH 27.8 27.8 MCHC 31.0 L 31.2 L RDW 16.2 H 15.9 H Plt Count 196 180 MPV 10.0 10.7 H Immature Gran % (Auto) 0.3 Neut % (Auto) 80.4 H Lymph % (Auto) 9.6 L [place] % (Auto) 9.3 H Eos % (Auto) 0.0 Baso % (Auto) 0.4 Lymph # (Auto) 0.65 L [place] # (Auto) 0.6 Eos # (Auto) 0.0 Baso # (Auto) 0.0 Abs Immat Gran (auto) 0.02 Absolute Neuts (auto) 5.4 Absolute Nucleated RBC 0.000 Nucleated RBC % 0.0 PT 15.7 H INR 1.2 APTT 26.0 Sodium 137 137 Potassium 4.3 3.9 Chloride 102 107 Carbon Dioxide 32 H 27 Anion Gap 3 L 3 L BUN 30 H D 19 D Creatinine 0.74 0.67 L Estim Creat Clear Calc 59 51 Estimated GFR > 60 > 60 Glucose 101 80 Calcium 8.6 8.4 Phosphorus 2.6 Magnesium 2.0 Total Bilirubin 0.6 AST 56 ALT 50 Alkaline Phosphatase 92 Total Protein 7.0 Albumin 3.5 Urine Color Yellow Urine Appearance Cloudy H Urine pH 7.5 Ur Specific [place] 1.015 Urine Protein 1+ H Urine Glucose (UA) Negative Urine Ketones Negative Ur Blood (Man) Negative Urine Nitrate Positive H Urine Bilirubin Negative Urine Urobilinogen 1.0 Add Ur Microanalysis Reviewed Leukocyte Esterase Rfl 3+ H Urine RBC 3-5 H Urine WBC 51-100 H Ur Squamous Epith Cells None seen Urine Bacteria 4+ H Urine Casts 0-2 Quality VTE Prophylaxis VTE prophylaxis: mechanical ordered
[2024-08-05 05:08] LABS: Basophils Percent Auto 0.4 % (0.2-1.2); Eosinophils Absolute Auto 0.2 K/mm3 (0-0.3); Eosinophils Percent Auto 3.4 % (0-4.4); Hematocrit 31.5 % (42.0-52.0); Immature Granulocyte Absolute 0.01 K/mm3 (0.00-0.031); Immature Granulocyte Percent A 0.2 % (0-0.5); Lymphocytes Percent Auto 21.4 % (18.3-44.2); Mean Corpuscular HGB Conc 31.7 g/dl (32-36); Mean Corpuscular Hemoglobin 27.9 pg (26-34); Mean Platelet Volume 10.4 fl (7.4-10.4); Monocytes Absolute Auto 0.6 K/mm3 (0.1-0.6); Monocytes Percent Auto 11.4 % (2.6-8.5); Neutrophils Absolute Auto 3.6 K/mm3 (1.3-6.7); Neutrophils Percent Auto 63.2 % (45.5-73.1); Platelet Count Result 173 k/mm3 (150-375); Red Blood Count 3.58 M/mm3 (4.6-6.20); Red Cell Distribution Width 15.7 % (11.5-14.5); White Blood Count 5.6 K/mm3 (4.5-10.0)
[2024-08-05 05:22] LABS: Alanine Aminotransferase 37 U/L (6-50); Albumin Level 3.2 g/dL (3.5-5.1); Alkaline Phosphatase 86 U/L (38-126); Anion Gap 4 mmol/L (4-12); Aspartate Amino Transferase 40 U/L (17-59); Bilirubin,Total 0.5 mg/dL (0.2-1.3); Blood Urea Nitrogen 19 mg/dL (9-20); Calcium 8.6 mg/dL (8.4-10.2); Carbon Dioxide 28 mmol/L (22-30); Chloride 105 mmol/L (98-107); Estimated CRCL calculation 54 ml/min; Estimated Glomerular Filt Rate > 60; Glucose 86 mg/dL (65-110); Potassium 3.9 mmol/L (3.4-5.0); Sodium 137 mmol/L (137-145)
[2024-08-05 06:00] VITALS: BP 141/45; PULSE 60; RESP 18; TEMP 36.9; O2SAT 97
[2024-08-05 08:11] VITALS: O2SAT 97
[2024-08-05] MEDS: MIDODRINE HCL 2.5 MG TABLET 5 MG PO ×3 (09:03→17:37)
--- NOTE | 2024-08-05 10:29 | P.PNIM_ITS ---
Progress Note: A&P Assessment and Plan (1) Urinary tract infection: Code(s): N39.0 - Urinary tract infection, site not specified Status: Acute Assessment and Plan: * Urinalysis is positive for nitrates, 3+ leukocyte esterase, 51 to 100 WBC, and 4+ bacteria. * Urine culture grew Enterococcus species. Awaiting sensitvities. * Stop Ceftriaxone, start Amoxicillin 500 mg PT * WBC 5.6. Creatinine 0.63. (2) Frequent falls: Code(s): R29.6 - Repeated falls Status: Acute Assessment and Plan: * PT/OT. (3) Orthostatic hypotension: Code(s): I95.1 - Orthostatic hypotension Status: Acute Assessment and Plan: * Supine 144/75 HR 86, Sitting 114/42, Standing 148/84. * Orthostatic q shift. * Midodrine 5 mg PO TID. (4) Chronic anemia: Code(s): D64.9 - Anemia, unspecified Status: Acute Assessment and Plan: * H&H today is 31.5. * Trend level. (5) Overactive bladder: Code(s): N32.81 - Overactive bladder Status: Acute Assessment and Plan: * He was recently started on oxybutynin for overactive bladder which could d efinitely be contributing to his orthostasis thus we will hold that for now. * Monitor pre and postvoid residuals to rule out urinary retention. Subjective Date/time seen: 08/05/24 10:29 Interval history: Patient lying in bed asleep when I entered the room. Patient reports burning with urination. Patient denies shortness of breath, pain, nausea, or vomiting. Review of Systems Review of Systems: All systems reviewed & are unremarkable except as noted in HPI and below Exam Const: General: comfortable and no acute distress Resp: Effort & Inspection: normal respiratory effort Auscultation: clear to auscultation bilaterally Cardio: Rate: regular rate Rhythm: regular rhythm GI: GI Palp: Yes Soft to palpation Auscultation: normal bowel sounds Skin: Other: 3 cm laceration to forehead vertical, no drainage at present. Neuro: Speech: normal speech Extrem: General: no pedal edema Psych: Other: Pleasantly confused and cooperative. Objective Data Vital Signs Vital Signs: Vital Signs - 24 hr 08/04/24 10:33 08/04/24 16:48 08/04/24 20:00 Temperature 98.2 F Pulse Rate 80 Respiratory Rate 16 Blood Pressure 141/61 H Pulse Oximetry 98 92 Oxygen Delivery Nasal Cannula Room Air Oxygen Flow Rate 2 08/04/24 20:40 08/04/24 21:59 08/05/24 06:00 Temperature 97.6 F 98.5 F Pulse Rate 60 60 Respiratory Rate 18 18 Blood Pressure 142/54 H 141/45 H Pulse Oximetry 98 90 97 Oxygen Delivery Nasal Cannula Oxygen Flow Rate 2 08/05/24 08:00 08/05/24 08:11 Temperature Pulse Rate Respiratory Rate Blood Pressure Pulse Oximetry 97 Oxygen Delivery Room Air Room Air Oxygen Flow Rate Intake/Output Intake/Output: Intake & Output 08/02/24 08/03/24 08/04/24 08/05/24 23:59 23:59 23:59 23:59 Intake Total 1389.6 1500 Output Total 25 1300 900 Balance 1364.6 200 -900 Meds/Results Medications: Active Medications Generic Name Dose Route Start Last Admin Trade Name Renay PRN Reason Stop Dose Admin Acetaminophen 650 mg 08/03/24 17:25 Acetaminophen 325 Mg Tablet PO Q4H PRN Mild Pain (1-3) or Fever Ceftriaxone Sodium 1 gm in 50 mls @ 100 mls/hr 08/03/24 17:00 08/04/24 17:05 Rocephin 1 Gm/Ns 50 Ml IVPB Infused Q24H [place] Infusion Midodrine 5 mg 08/04/24 09:00 08/05/24 09:03 Midodrine Hcl 2.5 Mg Tablet PO 5 mg TID [place] Administration Radiology Results: ITS Impressions Head CT 08/03/24 12:48 IMPRESSION: 1. Normal aging brain. No fracture or acute intracranial process. Cervical Spine CT 08/03/24 12:51 IMPRESSION: 1. Moderate cervical spondylosis. No acute osseous abnormality. Chest X-Ray 08/03/24 14:08 IMPRESSION: No acute cardiopulmonary pathology. Labs Labs: Laboratory Results - last 24 hr 08/05/24 04:43 WBC 5.6 RBC 3.58 L Hgb 10.0 L Hct 31.5 L MCV 88.0 MCH 27.9 MCHC 31.7 L RDW 15.7 H Plt Count 173 MPV 10.4 Immature Gran % (Auto) 0.2 Neut % (Auto) 63.2 Lymph % (Auto) 21.4 [place] % (Auto) 11.4 H Eos % (Auto) 3.4 Baso % (Auto) 0.4 Lymph # (Auto) 1.20 [place] # (Auto) 0.6 Eos # (Auto) 0.2 Baso # (Auto) 0.0 Abs Immat Gran (auto) 0.01 Absolute Neuts (auto) 3.6 Absolute Nucleated RBC 0.000 Nucleated RBC % 0.0 Sodium 137 Potassium 3.9 Chloride 105 Carbon Dioxide 28 Anion Gap 4 BUN 19 Creatinine 0.63 L Estim Creat Clear Calc 54 Estimated GFR > 60 Glucose 86 Calcium 8.6 Total Bilirubin 0.5 AST 40 ALT 37 Alkaline Phosphatase 86 Total Protein 6.0 L Albumin 3.2 L Quality VTE Prophylaxis VTE prophylaxis: mechanical ordered
[2024-08-05] MEDS: AMOXICILLIN 400 MG/5 ML SUSPENSION 100 ML BOTTLE 500 MG FEED TUBE ×2 (12:21→21:43)
[2024-08-05 14:00] VITALS: BP 128/53; PULSE 60; RESP 18; TEMP 36.7; O2SAT 100
[2024-08-05] MEDS: hydrOXYzine HCL 25 MG TABLET FEED TUBE (15:27)
[2024-08-05 19:20] VITALS: PULSE 73; RESP 20; O2SAT 98
[2024-08-06] VITALS (10 sets, daily range): BP systolic 85–151; BP diastolic 44–75; PULSE 37–87; RESP 16–20; TEMP 36.7–37.1; O2SAT 98–100; BMI 18.1
[2024-08-06] MEDS: AMOXICILLIN 400 MG/5 ML SUSPENSION 100 ML BOTTLE 500 MG FEED TUBE ×3 (05:20→21:20)
[2024-08-06 05:58] LABS: Basophils Percent Auto 0.6 % (0.2-1.2); Hematocrit 32.5 % (42.0-52.0); Hemoglobin 10.1 g/dL (14.0-18.0); Immature Granulocyte Absolute 0.01 K/mm3 (0.00-0.031); Immature Granulocyte Percent A 0.2 % (0-0.5); Lymphocytes Absolute Auto 1.33 K/mm3 (0.9-3.2); Lymphocytes Percent Auto 24.4 % (18.3-44.2); Mean Corpuscular HGB Conc 31.1 g/dl (32-36); Mean Corpuscular Hemoglobin 27.7 pg (26-34); Mean Corpuscular Volume 89.3 fl (80-100); Mean Platelet Volume 10.8 fl (7.4-10.4); Monocytes Absolute Auto 0.8 K/mm3 (0.1-0.6); Monocytes Percent Auto 15.1 % (2.6-8.5); Neutrophils Absolute Auto 3.3 K/mm3 (1.3-6.7); Neutrophils Percent Auto 59.7 % (45.5-73.1); Platelet Count Result 206 k/mm3 (150-375); Red Blood Count 3.64 M/mm3 (4.6-6.20); Red Cell Distribution Width 15.9 % (11.5-14.5); White Blood Count 5.4 K/mm3 (4.5-10.0)
[2024-08-06 06:14] LABS: Alanine Aminotransferase 37 U/L (6-50); Albumin Level 3.1 g/dL (3.5-5.1); Alkaline Phosphatase 81 U/L (38-126); Anion Gap 4 mmol/L (4-12); Aspartate Amino Transferase 43 U/L (17-59); Bilirubin,Total 0.4 mg/dL (0.2-1.3); Blood Urea Nitrogen 21 mg/dL (9-20); Calcium 8.9 mg/dL (8.4-10.2); Carbon Dioxide 30 mmol/L (22-30); Chloride 102 mmol/L (98-107); Estimated CRCL calculation 55 ml/min; Estimated Glomerular Filt Rate > 60; Glucose 84 mg/dL (65-110); Sodium 136 mmol/L (137-145)
[2024-08-06] MEDS: MIDODRINE HCL 2.5 MG TABLET 5 MG PO ×3 (08:29→17:18)
--- NOTE | 2024-08-06 10:18 | P.PNIM_ITS ---
Progress Note: A&P Assessment and Plan (1) Urinary tract infection: Code(s): N39.0 - Urinary tract infection, site not specified Status: Acute Assessment and Plan: * Urinalysis is positive for nitrates, 3+ leukocyte esterase, 51 to 100 WBC, and 4+ bacteria. * Urine culture grew Enterococcus species. Received Sensitivities. * 08/05/24 Stop Ceftriaxone, start Amoxicillin 500 mg PT. * WBC 5.4. Creatinine 0.63. (2) Frequent falls: Code(s): R29.6 - Repeated falls Status: Acute Assessment and Plan: * PT/OT. (3) Orthostatic hypotension: Code(s): I95.1 - Orthostatic hypotension Status: Acute Assessment and Plan: * Supine 138/58 HR 70, Sitting 102/50 HR 80, Standing 104/75 HR 87. * Add NS@100 ml/hr x 5 hours. * Orthostatic q shift. * Midodrine 5 mg PO TID. (4) Chronic anemia: Code(s): D64.9 - Anemia, unspecified Status: Acute Assessment and Plan: * H&H today is 10.1/32.5. * Trend level. (5) Overactive bladder: Code(s): N32.81 - Overactive bladder Status: Acute Assessment and Plan: * He was recently started on oxybutynin for overactive bladder which could definitely be contributing to his orthostasis thus we will hold that for now. * Monitor pre and postvoid residuals to rule out urinary retention. Subjective Date/time seen: 08/06/24 10:18 Interval history: Patient sitting up in bed. Patient denies chest pain, palpitations, headache, dizziness, nausea, or vomiting. Patient reports urinating frequently. Review of Systems Review of Systems: All systems reviewed & are unremarkable except as noted in HPI and below Exam Const: General: comfortable and no acute distress Resp: Effort & Inspection: normal respiratory effort Auscultation: clear to auscultation bilaterally Cardio: Rate: regular rate Rhythm: regular rhythm GI: GI Palp: Yes Soft to palpation Auscultation: normal bowel sounds Neuro: Speech: normal speech Extrem: General: no pedal edema Psych: Other: Pleasantly confused and cooperative. Objective Data Vital Signs Vital Signs: Vital Signs - 24 hr 08/05/24 14:00 08/05/24 19:20 08/06/24 06:00 Temperature 98.1 F 98.0 F Pulse Rate 60 73 37 L Respiratory Rate 18 20 16 Blood Pressure 128/53 L 133/57 L Pulse Oximetry 100 98 98 Oxygen Delivery Room Air Fraction of Inspired Oxygen 21 08/06/24 06:21 08/06/24 08:30 Temperature Pulse Rate 57 L Respiratory Rate Blood Pressure Pulse Oximetry Oxygen Delivery Room Air Fraction of Inspired Oxygen Intake/Output Intake/Output: Intake & Output 08/03/24 08/04/24 08/05/24 08/06/24 23:59 23:59 23:59 23:59 Intake Total 1389.6 1500 0 0 Output Total 25 1300 1500 300 Balance 1364.6 200 -1500 -300 Meds/Results Medications: Active Medications Generic Name Dose Route Start Last Admin Trade Name Freq PRN Reason Stop Dose Admin Acetaminophen 650 mg 08/03/24 17:25 Acetaminophen 325 Mg Tablet PO Q4H PRN Mild Pain (1-3) or Fever Amoxicillin 500 mg 08/05/24 12:00 08/06/24 05:20 Amoxicillin 400 Mg/5 Ml Suspension 100 Ml Bottle FEED TUBE 08/12/24 06:01 500 mg Q8HR PORTILLO Administration Midodrine 5 mg 08/04/24 09:00 08/06/24 08:29 Midodrine Hcl 2.5 Mg Tablet PO 5 mg TID PORTILLO Administration Radiology Results: ITS Impressions Head CT 08/03/24 12:48 IMPRESSION: 1. Normal aging brain. No fracture or acute intracranial process. Cervical Spine CT 08/03/24 12:51 IMPRESSION: 1. Moderate cervical spondylosis. No acute osseous abnormality. Chest X-Ray 08/03/24 14:08 IMPRESSION: No acute cardiopulmonary pathology. Labs Labs: Laboratory Results - last 24 hr 08/06/24 05:16 WBC 5.4 RBC 3.64 L Hgb 10.1 L Hct 32.5 L MCV 89.3 MCH 27.7 MCHC 31.1 L RDW 15.9 H Plt Count 206 MPV 10.8 H Immature Gran % (Auto) 0.2 Neut % (Auto) 59.7 Lymph % (Auto) 24.4 [place] % (Auto) 15.1 H Eos % (Auto) 0.0 Baso % (Auto) 0.6 Lymph # (Auto) 1.33 [place] # (Auto) 0.8 H Eos # (Auto) 0.0 Baso # (Auto) 0.0 Abs Immat Gran (auto) 0.01 Absolute Neuts (auto) 3.3 Absolute Nucleated RBC 0.000 Nucleated RBC % 0.0 Sodium 136 L Potassium 4.0 Chloride 102 Carbon Dioxide 30 Anion Gap 4 BUN 21 H Creatinine 0.63 L Estim Creat Clear Calc 55 Estimated GFR > 60 Glucose 84 Calcium 8.9 Magnesium 2.0 Total Bilirubin 0.4 AST 43 ALT 37 Alkaline Phosphatase 81 Total Protein 6.0 L Albumin 3.1 L Quality VTE Prophylaxis VTE prophylaxis: mechanical ordered
[2024-08-06] MEDS: SODIUM CHLORIDE 0.9% IV 500 ML 100 ML IV CONT (14:24)
[2024-08-07 05:22] VITALS: BP 126/57; PULSE 74; RESP 17; TEMP 36.4; O2SAT 97
[2024-08-07 06:15] LABS: Basophils Percent Auto 0.6 % (0.2-1.2); Hematocrit 31.8 % (42.0-52.0); Immature Granulocyte Absolute 0.01 K/mm3 (0.00-0.031); Immature Granulocyte Percent A 0.2 % (0-0.5); Lymphocytes Percent Auto 24.7 % (18.3-44.2); Mean Corpuscular HGB Conc 31.4 g/dl (32-36); Mean Corpuscular Volume 89.1 fl (80-100); Mean Platelet Volume 10.5 fl (7.4-10.4); Monocytes Absolute Auto 0.8 K/mm3 (0.1-0.6); Monocytes Percent Auto 15.6 % (2.6-8.5); Neutrophils Absolute Auto 3.1 K/mm3 (1.3-6.7); Neutrophils Percent Auto 58.9 % (45.5-73.1); Platelet Count Result 215 k/mm3 (150-375); Red Blood Count 3.57 M/mm3 (4.6-6.20); Red Cell Distribution Width 15.9 % (11.5-14.5); White Blood Count 5.3 K/mm3 (4.5-10.0)
[2024-08-07 06:29] LABS: Alanine Aminotransferase 39 U/L (6-50); Albumin Level 3.2 g/dL (3.5-5.1); Alkaline Phosphatase 79 U/L (38-126); Anion Gap 2 mmol/L (4-12); Aspartate Amino Transferase 42 U/L (17-59); Bilirubin,Total 0.6 mg/dL (0.2-1.3); Blood Urea Nitrogen 24 mg/dL (9-20); Calcium 8.7 mg/dL (8.4-10.2); Carbon Dioxide 32 mmol/L (22-30); Chloride 102 mmol/L (98-107); Estimated CRCL calculation 51 ml/min; Estimated Glomerular Filt Rate > 60; Glucose 94 mg/dL (65-110); Magnesium 2.1 mg/dL (1.6-2.3); Potassium 4.5 mmol/L (3.4-5.0); Sodium 136 mmol/L (137-145)
[2024-08-07] MEDS: AMOXICILLIN 400 MG/5 ML SUSPENSION 100 ML BOTTLE 500 MG FEED TUBE ×2 (06:44→13:03)
[2024-08-07] MEDS: MIDODRINE HCL 2.5 MG TABLET 5 MG PO ×2 (09:06→13:02)
--- NOTE | 2024-08-07 11:11 | PCPTNOTE ---
Patient refused treatment this session. Patient reported he did not want to get up from bed. Encouraged patient to participate in PT and educated patient on the importance of therapy, patient continued to refuse.
--- NOTE | 2024-08-07 13:15 | P.DS_ITS ---
DS: Admitting Diagnosis Discharge Date 08/07/2024 Admitting Diagnosis Fall, UTI DS: Discharge Diagnosis Discharge Diagnosis (1) Urinary tract infection: Qualifiers: Urinary tract infection type: acute cystitis Hematuria presence: without hematuria Qualified Code(s): N30.00 - Acute cystitis without hematuria Code(s): N39.0 - Urinary tract infection, site not specified Status: Acute Assessment and Plan: * Urinalysis is positive for nitrates, 3+ leukocyte esterase, 51 to 100 WBC, and 4+ bacteria. * Urine culture grew Enterococcus species. Received Sensitivities. * 08/05/24 Stop Ceftriaxone, start Amoxicillin 500 mg PT. Will continue at D/C. * Will also D/C with short dose of Pyridium due to pt still having minimal dysuria, educated on orange urine side effect * WBC 5.3. Creatinine 0.71. (2) Frequent falls: Code(s): R29.6 - Repeated falls Status: Acute Assessment and Plan: * PT/OT. * Will D/C with home therapy. Pt and family refusing placement at this time. See care coordination note. (3) Orthostatic hypotension: Code(s): I95.1 - Orthostatic hypotension Status: Acute Assessment and Plan: * 126/57 today, per nursing, pt refused orthostatics today. Discussed with pt and he refuses as well. Pt stable otherwise. Will continue midodrine at D/C. * Add NS@100 ml/hr x 5 hours. * Orthostatic q shift. * Midodrine 5 mg PO TID. (4) Chronic anemia: Code(s): D64.9 - Anemia, unspecified Status: Acute Assessment and Plan: * H&H today is 10.0/31.8. * Trend level. (5) Overactive bladder: Code(s): N32.81 - Overactive bladder Status: Acute Assessment and Plan: * He was recently started on oxybutynin for overactive bladder via PCP which could be contributing to his orthostasis thus we will hold that for now and let PCP restart after their assessment D/C. * Monitor pre and postvoid residuals to rule out urinary retention. DS: Summary Hospital Course Reason for hospitalization: Fall, UTI Hospital Course: Pt is an 83 y/o male with hx of orthostatic hypotension, falls, memory loss, BPH, and prostate CA s/p radiation who presented to the ED via EMS from home for evaluation after a fall on 08/03/2024. He was ambulating at home around his bed trying to get to his walker when he lost his balance and fell forward, hitting the front of his head on the bedside table. He denies syncope with the fall. He lives in his own home and ambulates with a walker. Unfortunately, he has frequent falls and it is noted that he was admitted to the hospital not long ago with failure to thrive and he had a PEG tube placed at that time for; after this visit, he wanted to go home with family (daughters) and HH and refused placement. Since his recent discharge, he has been started on oxybutynin mg b.i.d. for overactive bladder via his PCP. He was also referred to speech therapy due to oropharyngeal dysphagia. In the ED: Vital signs on arrival include a temperature of 97.9?, blood pressure 98/45, pulse 83, respiratory rate 16, SpO2 100% on room air. Labs are significant for WBC count 6.8, hemoglobin 10.3, carbon dioxide 32, BUN 30, creatinine 0.74. Urinalysis is positive for nitrates, 3+ leukocyte esterase, 51 to 100 WBC, and 4+ bacteria. Head and cervical spine CTs showed no acute findings. Chest x-ray was unremarkable. He was given a L of normal saline and ceftriaxone 1 g and he is being admitted in this setting for further treatment of urinary tract infection. Patient continued with ceftriaxone IV inpatient. Urine culture positive for Enterococcus species, started on amoxicillin 500 mg TID and will continue on this at D/C. Upon today's examination patient complaining of mild dysuria, ordered 1 dose Pyridium and some to go home with as well as some for home. Patient to follow-up with PCP about restarting his oxybutynin due to his orthostatic hypotension. Pt once again refusing placement and per care coordination daughters agreeable to have pt D/C with HH and their help at home. Status at Discharge Cognitive/behavioral status at discharge: Stable Time Spent with Patient Time attestation: Total time spent providing and/or coordinating discharge services: Exam Const: General: comfortable and no acute distress Other: Cachectic HENMT: Other: Abrasion on the forehead, tacky mucus membranes Eyes: General: appearance normal, both eyes and all related structures Sclera: sclerae normal Neck: Neck: supple and no JVD Resp: Effort & Inspection: normal respiratory effort Auscultation: clear to auscultation bilaterally Cardio: Rate: regular rate Rhythm: regular rhythm GI: Auscultation: normal bowel sounds Other: G-tube site is clean, dry, and intact. Dressing new. Skin: Other: 3 cm abrasion to forehead vertical, heal ing well, no drainage at present. Neuro: Speech: normal speech Motor exam (neuro): Normal motor muscle tone present throughout Sensory Exam: normal sensation Other: Alert to name, age, and date of . Does not know when he is here. Baseline orientation. Extrem: General: normal to inspection and no pedal edema Psych: Other: Pleasantly confused and cooperative DS: Data Data Completed and Pending Labs on day of discharge: Labs from last 24 hours 08/07/24 05:44 WBC 5.3 RBC 3.57 L Hgb 10.0 L Hct 31.8 L MCV 89.1 MCH 28.0 MCHC 31.4 L RDW 15.9 H Plt Count 215 MPV 10.5 H Immature Gran % (Auto) 0.2 Neut % (Auto) 58.9 Lymph % (Auto) 24.7 [place] % (Auto) 15.6 H Eos % (Auto) 0.0 Baso % (Auto) 0.6 Lymph # (Auto) 1.30 [place] # (Auto) 0.8 H Eos # (Auto) 0.0 Baso # (Auto) 0.0 Abs Immat Gran (auto) 0.01 Absolute Neuts (auto) 3.1 Absolute Nucleated RBC 0.000 Nucleated RBC % 0.0 Sodium 136 L Potassium 4.5 Chloride 102 Carbon Dioxide 32 H Anion Gap 2 L BUN 24 H Creatinine 0.71 Estim Creat Clear Calc 51 Estimated GFR > 60 Glucose 94 Calcium 8.7 Magnesium 2.1 Total Bilirubin 0.6 AST 42 ALT 39 Alkaline Phosphatase 79 Total Protein 6.0 L Albumin 3.2 L Discharge Plan Discharge Attending physician on discharge: Jacqueline Manoz Discharging Clinician: Jacqueline Manzo Anticipated Discharge Date/Time: 08/07/24 14:00 Patient Disposition: Home with Home Health Service Activity: may shower and as tolerated Diet: tube feeding Discharge Instructions: Per Care Coordination. Patient to resume [facility] for RN/PT/OT eval and treat # [phone]. RN please fax discharge instructions to 1. Continue taking the Amoxicillin antibiotic three times daily until gone, starting with dose tonight. 2. I also sent you a prescription for Pyridium which is a medication that can help with pain when urinating. This medication can cause your urine to turn orange/red, so just be aware of this. 3. Continue to work with therapy at home to help with your falls. 4. Follow-up with your primary care provider in 1-2 weeks as they will want to know about this current admission as well as re-starting your Oxybutin. Patient Instructions: Antibiotic Form, Phenazopyridine (By mouth), Amoxicillin (By mouth), Urinary Tract Infection in Men (GEN) Patient Language: Finnish Stand Alone Forms: General Discharge Information Follow-up/Referrals: Anjelica Horner MD [Primary Care Provider] - 1 Week Discharge Medications: New amoxicillin 400 mg/5 mL Suspension For Reconstitution 500 mg feeding tube Q8HR MDD 1500 mg (18.75mL) 6 Days Qty: 112.5 0RF Rx Instructions: Start with evening dose on 08/07/2024 and then take three times daily until finished. phenazopyridine [Pyridium] 100 mg tablet 100 mg PO TID PRN (Reason: pain with urination) Qty: 15 0RF Continued midodrine 5 mg tablet 5 mg PO TID Qty: 90 3RF Rx Instructions: do not give last dose of day after 6PM or within 4 hrs of bedtime hydroxyzine HCl 25 mg tablet See Rx Instructions PO QHS PRN (Reason: insomnia) Qty: 180 0RF Rx Instructions: 1-2 tablets orally every day at bedtime PRN; Held oxybutynin chloride 5 mg tablet 5 mg PO BID Qty: 60 1RF Hold Instructions: Resume on 08/21/24. Hold until primary care provider says it is OK to resume due to low blood pressure. Date of admission: 08/05/24 12:50 Primary Care Provider: Anjelica Horner Admitting Provider: Yvette Dumont Attending physician on admission: Jacqueline Manzo Condition: Stable Quality VTE Prophylaxis VTE prophylaxis: mechanical ordered Hospitalist MIPS Heart Failure (Exclusion) Patient has history of Heart Transplant or Left Ventricular Assistive Device?: No IF YES, STOP HERE Heart Failure (Qualifier) Patient has current or prior documentation of LVEF less than or equal to 40%, or mod/servere depressed LVSF?: No IF NO, STOP HERE
[2024-08-07 14:00] VITALS: BP 153/55; PULSE 73; RESP 16; TEMP 36.4; O2SAT 100
[2024-08-07 14:30] VITALS: BP 153/73; PULSE 73
[2024-08-07 14:34] VITALS: BP 126/56; PULSE 68
[2024-08-07 14:38] VITALS: BP 90/39; PULSE 87
[2024-08-07] MEDS: PHENAZOPYRIDINE HCL 100 MG TABLET PO (16:34)
== END 2024-08-07 19:20 | disposition home health service (06) | DRG 690 ==
LOC: ANHED 17:01 → ANH3MEDSUR 18:21 → ANH2MED 18:53
PROVIDERS: Nurse Practitioner Family; Physician Assistant; Admitting Provider Family Medicine; Emergency Provider Emergency Medicine; PCP Family Medicine
DX: N30.00 Acute cystitis without hematuria (principal); B95.2 Enterococcus as the cause of diseases classified elsewhere; R29.6 Repeated falls; I95.1 Orthostatic hypotension; D64.9 Anemia, unspecified; M10.9 Gout, unspecified; N32.81 Overactive bladder; N40.0 Benign prostatic hyperplasia without lower urinary tract symptoms; R13.12 Dysphagia, oropharyngeal phase; Z85.46 Personal history of malignant neoplasm of prostate
CPT/HCPCS: 36415; 70450; 71045; 72125; 80048; 80053; 81001; 83735; 84100; 85025; 85027; 85610; 85730; 87086; 87181; 96361; 96365; 96366; 97110; 97162; 97165; 97530; 97535; 99285; A9270; G0378; J0696; J7030; J7040

== ENCOUNTER 2024-08-10 19:42 | Emergency (ER) | payer OTHER, SELFPAY ==
--- NOTE | ~2024-08-10 | XR_ITS ---
EXAMINATION: XR abdomen/kub 1V DATE: 08/11/2024 00:17 INDICATION: Gastrostomy tube position TECHNIQUE: A supine view of the abdomen was obtained. COMPARISON: None. FINDINGS: Contrast seen within the stomach as well as throughout the small bowel and extending into the cecum. No dilated loops of gas-filled bowel to suggest obstruction. Thin rim of contrast extends from the bu lb of a percutaneous gastrostomy tube which projects over the body the stomach. IMPRESSION: 1. Percutaneous gastrostomy tube bulb projects over the body the stomach although definitive intragas tric position cannot be confirmed on the single provided projection. 2. Contrast extends throughout the small bowel to the cecum with no evident obstruction. Reviewed, dictated and finalized at location A. IMPRESSION: 1. Percutaneous gastrostomy tube bulb projects over the body the stomach althou gh definitive intragastric position cannot be confirmed on the single provided projection. 2. Contrast extends throughout the small bowel to the cecum with no evident obs truction.
--- NOTE | ~2024-08-10 | XR_ITS ---
XR abdomen gastric tube insert Ordering provider: Yuri Butt MD History: . gtube re-insert . Comparison: None. FINDINGS: BOWEL: Contrast is seen in the stomach and small bowel. Contrast collection is seen near to the lesse r curvature of the stomach which may be inside or outside the stomach. Other views or CT scan for sherin luation is advised. Nonobstructive bowel gas pattern. ORGANOMEGALY: None. SIGNIFICANT PATHOLOGIC CALCIFICATIONS: None. OTHER: No free air is seen under the diaphragm. IMPRESSION: NO ACUTE ABDOMINAL FINDINGS. Contrast collection seen near to the lesser curvature of the stomach. Further evaluation advised. Reviewed, dictated and finalized at location A. IMPRESSION: NO ACUTE ABDOMINAL FINDINGS. Contrast collection seen near to the lesser curvature of the stomach. Further e valuation advised.
--- OUTSIDE RECORDS SUMMARY | 2024-08-10 19:44 | XMS_ITS | Encounter Summary ---
Author Organization [facility] Address [address] [place] [address] Care Team Providers Care Material Liaison Name Role Phone Yessica Saenz MD Primary Care Provider +1- [phone] Yessica Saenz MD Primary Care Provider +1- [phone] Rajinder Nicholson MD Primary Care Provider +1- [phone] Nova Brumfield MD Primary Care Provider Phyllis Horner MD Primary Care Provider Encounter Details Date Type Department Care Team (Late st Contact Info) Description 04/07/2016 Orders Only [facility] ProviderCarmela MD [address] [place] [address] Social History Tobacco Use Types Packs/Day Years Used Date Smoking Tobacco: Never Alcohol Use Standard Drinks/Week Comments No 0 (1 standard drink = 0.6 oz pur e alcohol) Sex and Gender Information Value Date Recorded Sex Assigned at Not on file 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
--- OUTSIDE RECORDS SUMMARY | 2024-08-10 19:44 | XMS_ITS | Encounter Summary ---
Author Organization [facility] Address [address] [place] [address] Care Team Providers Care Asbestos Brake Lining Finisher Name Role Phone Yessica Saenz MD Primary Care Provider +1- [phone] Yessica Saenz MD Primary Care Provider +1- [phone] Rajinder Nicholson MD Primary Care Provider +1- [phone] Nova Brumfield MD Primary Care Provider Phyllis Horner MD Primary Care Provider Encounter Details Date Type Department Care Team (Late st Contact Info) Description 02/25/2016 Orders Only [facility] ProviderCarmela MD [address] [place] [address] Social History Tobacco Use Types Packs/Day Years Used Date Smoking Tobacco: Never Alcohol Use Standard Drinks/Week Comments No 0 (1 standard drink = 0.6 oz pur e alcohol) Sex and Gender Information Value Date Recorded Sex Assigned at Not on file 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
--- OUTSIDE RECORDS SUMMARY | 2024-08-10 19:44 | XMS_ITS | Encounter Summary ---
Author Organization [facility] Address [address] [place] [address] Care Team Providers Care Blind Lacer Name Role Phone Yessica Saenz MD Primary Care Provider +1- [phone] Yessica Saenz MD Primary Care Provider +1- [phone] Rajinder Nicholson MD Primary Care Provider +1- [phone] Nova Brumfield MD Primary Care Provider Phyllis Horner MD Primary Care Provider Encounter Details Date Type Department Care Team (Late st Contact Info) Description 05/23/2016 Orders Only [facility] ProviderCarmela MD [address] [place] [address] Social History Tobacco Use Types Packs/Day Years Used Date Smoking Tobacco: Never Alcohol Use Standard Drinks/Week Comments No 0 (1 standard drink = 0.6 oz pur e alcohol) Sex and Gender Information Value Date Recorded Sex Assigned at Not on file 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
--- OUTSIDE RECORDS SUMMARY | 2024-08-10 19:44 | XMS_ITS | Encounter Summary ---
Author Organization [facility] Address [address] [place] [address] Care Team Providers Care Director Search Name Role Phone Yessica Saenz MD Primary Care Provider +1- [phone] Rajinder Nicholson MD Primary Care Provider +1- [phone] Nova Brumfield MD Primary Care Provider Phyllis Horner MD Primary Care Provider Encounter Details Date Type Department Care Team (Late st Contact Info) Description 07/04/2016 Orders Only [facility] ProviderCarmela MD [address] [place] [address] Social History Tobacco Use Types Packs/Day Years Used Date Smoking Tobacco: Never Alcohol Use Standard Drinks/Week Comments No 0 (1 standard drink = 0.6 oz pur e alcohol) Sex and Gender Information Value Date Recorded Sex Assigned at Not on file 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
--- OUTSIDE RECORDS SUMMARY | 2024-08-10 19:44 | XMS_ITS | Continuity of Care Document ---
Author Organization [facility] Address [address] [place] [address] Phone Care Team Providers Care Value Advisor Name Role Phone Alber Gunter MD Unavailable Unavailable Advance Directives Directive Yes / No Effective Date File Name No Information Encounters Encounter Description Practice Location Reason(s) For Visit Diagnoses Date Provider Providers Copied on Encounter [facility], [address], [place], [place], [id number], [place] tel:[phone] [facility] No Information [address], [place], [place], [id number], [place]. tel:[phone] Family History Family Member Type Diagnosis Age [...]
--- OUTSIDE RECORDS SUMMARY | 2024-08-10 19:44 | XMS_ITS | Clinical Summary ---
Author Organization 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
--- OUTSIDE RECORDS SUMMARY | 2024-08-10 19:44 | XMS_ITS | Referral Summary ---
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
[2024-08-10 20:13] VITALS: BP 133/71; PULSE 71; RESP 18; TEMP 36.4; O2SAT 100
--- NOTE | 2024-08-10 20:13 | PC.NURSE ---
Patients family member states patient accidentally pulled out the g tube when using the bathroom. Patients daughter has g tube with her, 20Fr, balloon intact. Per daughter, patient missed one feeding that was scheduled at 1999.
--- OUTSIDE RECORDS SUMMARY | 2024-08-10 22:47 | XMS_ITS | Encounter Summary ---
Author Organization [facility] Address [address] [place] [address] Care Team Providers Care Graphics Software Engineer Name Role Phone Yessica Saenz MD Primary Care Provider +1- [phone] Yessica Saenz MD Primary Care Provider +1- [phone] Rajinder Nicholson MD Primary Care Provider +1- [phone] Nova Brumfield MD Primary Care Provider Phyllis Horner MD Primary Care Provider Encounter Details Date Type Department Care Team (Late st Contact Info) Description 04/07/2016 Orders Only [facility] ProviderCarmela MD [address] [place] [address] Social History Tobacco Use Types Packs/Day Years Used Date Smoking Tobacco: Never Alcohol Use Standard Drinks/Week Comments No 0 (1 standard drink = 0.6 oz pur e alcohol) Sex and Gender Information Value Date Recorded Sex Assigned at Not on file 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
--- OUTSIDE RECORDS SUMMARY | 2024-08-10 22:47 | XMS_ITS | Encounter Summary ---
Author Organization [facility] Address [address] [facility] [address] [place] [address] Care Team Providers Care Media Traffic Manager Name Role Phone Yessica Saenz MD Primary Care Provider +1- [phone] Yessica Saenz MD Primary Care Provider +1- [phone] Rajinder Nicholson MD Primary Care Provider +1- [phone] Nova Brumfield MD Primary Care Provider Phyllis oHrner MD Primary Care Provider Encounter Details Date Type Department Care Team (Late st Contact Info) Description 02/25/2016 [facility] Only [facility] ProviderCarmela MD [address] [place] [address] Social History Tobacco Use Types Packs/Day Years Used Date Smoking Tobacco: Never Alcohol Use Standard Drinks/Week Comments No 0 (1 standard drink = 0.6 oz pur e alcohol) Sex and Gender Information Value Date Recorded Sex Assigned at Not on file 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
--- OUTSIDE RECORDS SUMMARY | 2024-08-10 22:47 | XMS_ITS | Referral Summary ---
Author Organization 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
--- OUTSIDE RECORDS SUMMARY | 2024-08-10 22:47 | XMS_ITS | Continuity of Care Document ---
Author Organization [facility] Address [address] [place] [address] Phone Care Team Providers Care Discharge Door Operator Name Role Phone Alber Gunter MD Unavailable Unavailable Advance Directives Directive Yes / No Effective Date File Name No Information Encounters Encounter Description Practice Location Reason(s) For Visit Diagnoses Date Provider Providers Copied on Encounter [facility], [address], [place], [place], [id number], [place] tel:[phone] [facility] No Information [address] [facility] [address], [place], [place], [id number], [place]. tel:[phone] Family History Family Member Type Diagnosis Age [...]
--- OUTSIDE RECORDS SUMMARY | 2024-08-10 22:47 | XMS_ITS | Encounter Summary ---
Author Organization [facility] Address [address] [facility] [address] [place] [address] Care Team Providers Care Public Relations Supervisor Name Role Phone Yessica Saenz MD Primary Care Provider +1- [phone] Rajinder Nicholson MD Primary Care Provider +1- [phone] Nova Brumfield MD Primary Care Provider Phyllis Horner MD Primary Care Provider Encounter Details Date Type Department Care Team (Late st Contact Info) Description 07/04/2016 Orders Only [facility] ProviderCarmela MD [address] [place] [address] Social History Tobacco Use Types Packs/Day Years Used Date Smoking Tobacco: Never Alcohol Use Standard Drinks/Week Comments No 0 (1 standard drink = 0.6 oz pur e alcohol) Sex and Gender Information Value Date Recorded Sex Assigned at Not on file 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
--- OUTSIDE RECORDS SUMMARY | 2024-08-10 22:47 | XMS_ITS | Clinical Summary ---
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
--- OUTSIDE RECORDS SUMMARY | 2024-08-10 22:47 | XMS_ITS | Encounter Summary ---
Author Organization [facility] Address [address] [facility] [address] [place] [address] Care Team Providers Care Healthcare Project Manager Name Role Phone Yessica Saenz MD Primary Care Provider +1- [phone] Yessica Saenz MD Primary Care Provider +1- [phone] Rajinder Nicholson MD Primary Care Provider +1- [phone] Nova Brumfield MD Primary Care Provider Phyllis Horner MD Primary Care Provider Encounter Details Date Type Department Care Team (Late st Contact Info) Description 05/23/2016 Orders Only [facility] ProviderCarmela MD [address] [place] [address] Social History Tobacco Use Types Packs/Day Years Used Date Smoking Tobacco: Never Alcohol Use Standard Drinks/Week Comments No 0 (1 standard drink = 0.6 oz pur e alcohol) Sex and Gender Information Value Date Recorded Sex Assigned at Not on file 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
--- NOTE | 2024-08-10 23:20 | ED_ITS ---
HPI - General Adult General Chief complaint: Unspecified Stated complaint: Feeding tube pulled out at 1800 Time Seen by Provider: 08/10/24 22:40 History of Present Illness HPI narrative: 84-year-old male with a past medical history including frequent falls, memory loss, prostate cancer status post radiation, yodit pharyngeal dysphagia with a PEG tube does placed [address] Urias. Patient presents to the emergency department after he accidentally dislodged his PEG tube. Patient states that he got it caught on something while he was rushing to the bathroom and ripped out. He is not exhibiting any pain has no symptoms at this time. Was otherwise acting appropriately and has been getting tube feeds with his family members caring for him at home. He was recently discharged from the hospital several days ago for a hospitalizations secondary to falls and urinary tract infection and placement options were discussed with the family but they wish to have him treated at home with their care and home health care which was established. Patient has a nurse visiting him tomorrow as well. Related Data Allergies Allergy/AdvReac Type Severity Reaction Status Date / Time No Known Allergies Allergy Unknown Verified 08/10/24 19:42 Review of Systems Review of Systems: As reviewed above in HPI [facility] Past Medical History Medical History Chronic anemia Gout Prostate cancer status post radiation Overactive bladder Multinodular goiter Dementia Dysphagia Vocal cord dysfunction Hearing loss Memory loss 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 Dyslipidemia Surgical History Surgical History History of tonsillectomy History of gastrostomy tube placement History of colonoscopy last performed 2021 or 2022 History of loop recorder History of right inguinal hernia repair 1948 - x2 Family History Family History Father Family history of coronary artery disease Mother Family history of arthritis Grandparent Family history of coronary artery disease Other Family history of malignant neoplasm of breast in first degree relative Social History Social History Social History: Surrogate medical decision maker: Susana Huitron, daughter. Code status: Full code. Smoking status: Never smoker Second hand tobacco smoke exposure: Yes Alcohol intake: unknown Substance use: unknown Substance use type: does not use Do You Feel Safe in your Home?: Yes Lack of Transportation: No Lack of Food: Never True Current Housing: I Have Housing Concerned About Future Housing: No Difficulty Paying Gas/Electric Bills: No Difficulty Paying for Meds: No Currently Unemployed: No Education: Bachelor's Degree Difficulty w/ Childcare or Family Care: No Living arrangements: alone Occupation/Education: retired Spiritual care concerns: No Exam Narrative: GENERAL: Elderly and cachectic but not any acute distress HEAD: [Normocephalic, atraumatic.] EYES: [PERRLA and EOMI.] ENT: Nares clear, no rhinorrhea or epistaxis. Mucous membranes moist. NECK: Supple. CHEST: [Clear to auscultation. No respiratory distress.] HEART: [Regular rate and rhythm]. No murmur heard. [Normal peripheral pulses.] ABDOMEN: [Soft, nondistended], [nontender], [No rigidity or guarding] peg tube site without peg tube in place, no overlying erythema, tenderness to palpation, bleeding or any purulence. EXTREMITIES: Normal range of motion. [No edema.] SKIN: Warm, dry, no rash. NEURO: [No focal deficits]. Alert and oriented at his baseline mentation. PSYCH: [Normal mood and affect.] Course Vital Signs Vital signs: Vital Signs Temperature 36.4 C 08/10/24 20:13 Pulse Rate 71 08/10/24 20:13 Respiratory Rate 18 08/10/24 20:13 Blood Pressure 133/71 08/10/24 20:13 Pulse Oximetry 100 08/10/24 20:13 Temperature 36.4 C 08/10/24 20:13 Pulse Rate 71 08/10/24 20:13 Respiratory Rate 18 08/10/24 20:13 Blood Pressure 133/71 08/10/24 20:13 Pulse Oximetry 100 08/10/24 20:13 Procedures Feeding Tube Replacement Feeding Tube #1: Feeding Tube Placement Date: 08/10/24 Feeding Tube Placement Time: 23:00 Type of Tube: gastrostomy Insertion Site Prior to Procedure: clean Tube Used for Reinsertion: other Malaysian Tube Size (F): 16 Balloon size (mL): 5 Verification of Placement: auscultation, KUB and gastrografin injection Tube Secured by: tape/dressing Patient Tolerated Procedure: well and no complications Medical Decision Making MDM Narrative Medical decision making narrative: 84-year-old male presenting to the emergency department for dislodged PEG tube. Patient was recently hospitalized for urinary tract infection and falls and was discharged home with home healthcare. He has had a PEG tube for 6 weeks secondary to adult for the thrive, dysphagia and needing feeding. Patient has been doing well outside the hospital but he accidentally dislodged his PEG tube after getting it caught on something while trying to use the bathroom. Peg tube was replaced at bedside with a slightly smaller size given that it has been dislodged for several hours. A 16 Malaysian PEG tube was placed successfully and a confirmatory x-ray ordered. Patient has no complaints at this time and family members were comfortable with him going back home at this time with return precautions and home healthcare visit tomorrow morning. Gastrostomy tube was placed without difficulty. X-ray shows contrast collection in the lesser curvature of the stomach. Radiology did recommend further evaluation as it is difficult to ascertain position. Upright KUB was placed showing gastrostomy tube in the upper abdomen. This was flushed and bowel sounds were heard with air and then we infiltrated water into the G-tube and were able to draw this easily indicating appropriate placement into the stomach. Discussed with family return precautions and patient is safe for discharge at this time. Medical Records Medical records reviewed: Yes I reviewed the external patient's medical records. Vital Signs Vital Signs: Vital Signs Temperature 36.4 C 08/10/24 20:13 Pulse Rate 71 08/10/24 20:13 Respiratory Rate 18 08/10/24 20:13 Blood Pressure 133/71 08/10/24 20:13 Pulse Oximetry 100 08/10/24 20:13 Temperature 36.4 C 08/10/24 20:13 Pulse Rate 71 08/10/24 20:13 Respiratory Rate 18 08/10/24 20:13 Blood Pressure 133/71 08/10/24 20:13 Pulse Oximetry 100 08/10/24 20:13 Lab Data Lab results reviewed: Yes I reviewed the patient's lab results. Imaging Data Attestation: I personally reviewed and interpreted this imaging study as follows: My impression: Impressions Abdomen X-Ray 08/10/24 23:24 IMPRESSION: NO ACUTE ABDOMINAL FINDINGS. Contrast collection seen near to the lesser curvature of the stomach. Further evaluation advised. Discharge Plan Discharge Clinical Impression: Dislodged gastrostomy tube, S/P percutaneous endoscopic gastrostomy (PEG) tube placement Patient Disposition: Home Condition: Stable Instructions: Antibiotic Form Additional Instructions: Gastrostomy tube was replaced without difficulty and easily flushes and draws fluid with x-rays showing contrast in the stomach. If you notice that patient starts developing abdominal bloating, abdominal pain, complaining when the G-t ube is being used or any other concerns please return to the emergency department for repeat evaluation otherwise follow-up with the outpatient primary doctor. Patient Language: Nigerian Prescriptions: No Action oxybutynin chloride 5 mg tablet 5 mg PO BID Qty: 60 1RF amoxicillin 400 mg/5 mL Suspension For Reconstitution 500 mg feeding tube Q8HR MDD 1500 mg (18.75mL) 6 Days Qty: 112.5 0RF Rx Instructions: Start with evening dose on 08/07/2024 and then take three times daily until finished. phenazopyridine [Pyridium] 100 mg tablet 100 mg PO TID PRN (Reason: pain with urination) Qty: 15 0RF midodrine 5 mg tablet 5 mg PO TID Qty: 90 3RF Rx Instructions: do not give last dose of day after 6PM or within 4 hrs of bedtime hydroxyzine HCl 25 mg tablet See Rx Instructions PO QHS PRN (Reason: insomnia) Qty: 180 0RF Rx Instructions: 1-2 tablets orally every day at bedtime PRN; Follow-up/Referrals: Anjelica Horner MD [Primary Care Provider] - Time of Disposition: 03:03
[2024-08-11] MEDS: NACL 0.9% IRRIGATION POUR BOTTLE 500 ML (02:56)
--- NOTE | 2024-08-11 02:56 | PC.NURSE ---
this rn irrigated patient g tube after edp dr. bush replaced g tube and was able to flush and aspirate fluid from g tube. extension service specialist in charge ALISHA at bedside to assist.
== END 2024-08-11 03:20 | disposition home or self-care (01) ==
PROVIDERS: Emergency Provider Student in an Organized Health Care Education/Training Program; PCP Family Medicine
DX: Z43.1 Encounter for attention to gastrostomy (principal); Z85.46 Personal history of malignant neoplasm of prostate; Z91.81 History of falling; F03.90 Unspecified dementia, unspecified severity, without behavioral disturbance, psychotic disturbance, mood disturbance, and anxiety; E78.49 Other hyperlipidemia
CPT/HCPCS: 43762; 74018; 99283

== ENCOUNTER 2024-08-11 11:53 | Emergency (ER) | payer OTHER, SELFPAY ==
--- NOTE | ~2024-08-11 | XR_ITS ---
EXAMINATION: XR abdomen gastric tube insert DATE: 08/11/2024 13:51 INDICATION: G-tube placement TECHNIQUE: A supine view of the abdomen and lower chest was obtained prior to and following injectio n of 30 mL Omnipaque 350 for evaluation of feeding tube placement. COMPARISON: 08/11/2024 FINDINGS: Initial image demonstrates percutaneous gastrostomy tube bulb projecting over the medial aspect of th e left upper quadrant. There is oral contrast material throughout the colon related to the earlier co ntrast injection. Subsequent images following injection of contrast through the percutaneous gastrost jose tube demonstrates contrast within the stomach which outlines the margins of the lucent gastrostom y tube bulb. No extraluminal extravasation of contrast identified. Implantable clinical exercise specialist projec ts over the left lower thorax. Old healed inferior left rib fracture. IMPRESSION: 1. Percutaneous gastrostomy tube bulb and injected contrast both within the lumen of the stomach with no extraluminal contrast extravasation. Reviewed, dictated and finalized at location A. IMPRESSION: 1. Percutaneous gastrostomy tube bulb and injected contrast both within the lum en of the stomach with no extraluminal contrast extravasation.
[2024-08-11 12:10] VITALS: BP 119/57; PULSE 71; RESP 16; TEMP 36.6; O2SAT 99
[2024-08-11 14:55] VITALS: BP 176/61; PULSE 55; RESP 16; O2SAT 99
--- OUTSIDE RECORDS SUMMARY | 2024-08-11 18:02 | XMS_ITS | Encounter Summary ---
Author Organization [facility] Address [address] [facility] [address] [place] [address] Care Team Providers Care Fractionating Still Operator Name Role Phone Yessica Saenz MD Primary Care Provider +1- [phone] Rajinder Nicholson MD Primary Care Provider +1- [phone] Nova Brumfield MD Primary Care Provider Phyllis Horner MD Primary Care Provider Encounter Details Date Type Department Care Team (Late st Contact Info) Description 07/04/2016 Orders Only [facility] ProviderCarmela MD [address] [place] [address] Social History Tobacco Use Types Packs/Day Years Used Date Smoking Tobacco: Never Alcohol Use Standard Drinks/Week Comments No 0 (1 standard drink = 0.6 oz pur e alcohol) Sex and Gender Information Value Date Recorded Sex Assigned at Not on file 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
--- OUTSIDE RECORDS SUMMARY | 2024-08-11 18:02 | XMS_ITS | Encounter Summary ---
Author Organization [facility] Address [address] [facility] [address] [place] [address] Care Team Providers Care Elementary Education Teacher Name Role Phone Yessica Saenz MD Primary Care Provider +1- [phone] Yessica Saenz MD Primary Care Provider +1- [phone] Rajinder Nicholson MD Primary Care Provider +1- [phone] Nova Brumfield MD Primary Care Provider Phyllis Horner MD Primary Care Provider Encounter Details Date Type Department Care Team (Late st Contact Info) Description 04/07/2016 Orders Only [facility] ProviderCarmela MD [address] [place] [address] Social History Tobacco Use Types Packs/Day Years Used Date Smoking Tobacco: Never Alcohol Use Standard Drinks/Week Comments No 0 (1 standard drink = 0.6 oz pur e alcohol) Sex and Gender Information Value Date Recorded Sex Assigned at Not on file 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
--- OUTSIDE RECORDS SUMMARY | 2024-08-11 18:03 | XMS_ITS | Referral Summary ---
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
--- OUTSIDE RECORDS SUMMARY | 2024-08-11 18:03 | XMS_ITS | Clinical Summary ---
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
--- OUTSIDE RECORDS SUMMARY | 2024-08-11 18:03 | XMS_ITS | Encounter Summary ---
Author Organization [facility] Address [address] [facility] [address] [place] [address] Care Team Providers Care Underwear Welter Name Role Phone Yessica Saenz MD Primary Care Provider +1- [phone] Yessica Saenz MD Primary Care Provider +1- [phone] Rajinder Nicholson MD Primary Care Provider +1- [phone] Nova Brumfield MD Primary Care Provider Phyllis Horner MD Primary Care Provider Encounter Details Date Type Department Care Team (Late st Contact Info) Description 02/25/2016 Orders Only [facility] ProviderCarmela MD [address] [place] [address] Social History Tobacco Use Types Packs/Day Years Used Date Smoking Tobacco: Never Alcohol Use Standard Drinks/Week Comments No 0 (1 standard drink = 0.6 oz pur e alcohol) Sex and Gender Information Value Date Recorded Sex Assigned at Not on file 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
--- OUTSIDE RECORDS SUMMARY | 2024-08-11 18:03 | XMS_ITS | Encounter Summary ---
Author Organization [facility] Address [address] [place] [address] Care Team Providers Care Drying Frame Operator Name Role Phone Yessica Saenz MD Primary Care Provider +1- [phone] Yessica Saenz MD Primary Care Provider +1- [phone] Rajinder Nicholson MD Primary Care Provider +1- [phone] Nova Brumfield MD Primary Care Provider Phyllis Horner MD Primary Care Provider Encounter Details Date Type Department Care Team (Late st Contact Info) Description 05/23/2016 [facility] Only [facility] ProviderCarmela MD [address] [place] [address] Social History Tobacco Use Types Packs/Day Years Used Date Smoking Tobacco: Never Alcohol Use Standard Drinks/Week Comments No 0 (1 standard drink = 0.6 oz pur e alcohol) Sex and Gender Information Value Date Recorded Sex Assigned at Not on file 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
--- OUTSIDE RECORDS SUMMARY | 2024-08-11 18:03 | XMS_ITS | Continuity of Care Document ---
Author Organization [facility] Address [address] [place] [address] Phone Care Team Providers Care Proposal Rep Name Role Phone Alber Gunter MD Unavailable Unavailable Advance Directives Directive Yes / No Effective Date File Name No Information Encounters Encounter Description Practice Location Reason(s) For Visit Diagnoses Date Provider Providers Copied on Encounter [facility], [address], [place], [place], [id number], [place] tel:[phone] [facility] No Information [address] [facility] [address], [place], [place], [address], [place]. tel:[phone] Family History Family Member Type Diagnosis Age [...]
--- OUTSIDE RECORDS SUMMARY | 2024-08-11 18:07 | XMS_ITS | Continuity of Care Document ---
Author Organization [facility] Address [address] [place] [address] Phone Care Team Providers Care Float Tender Name Role Phone Alber Gunter MD Unavailable Unavailable Advance Directives Directive Yes / No Effective Date File Name No Information Encounters Encounter Description Practice Location Reason(s) For Visit Diagnoses Date Provider Providers Copied on Encounter [facility], [address], [place], [place], [id number], [place] tel:[phone] [facility] No Information [address] [facility] [address], [place], [place], [id number], [place]. tel:[phone] Family History Family Member Type Diagnosis Age [...]
== END 2024-08-11 15:01 | disposition home or self-care (01) ==
PROVIDERS: Emergency Provider Emergency Medicine; PCP Family Medicine
DX: Z43.1 Encounter for attention to gastrostomy (principal); F03.90 Unspecified dementia, unspecified severity, without behavioral disturbance, psychotic disturbance, mood disturbance, and anxiety; R13.12 Dysphagia, oropharyngeal phase
CPT/HCPCS: 43762; 99283

== ENCOUNTER 2024-08-19 13:19 | Outpatient (CLI) | payer OTHER, SELFPAY ==
--- OUTSIDE RECORDS SUMMARY | 2024-08-19 14:34 | XMS_ITS | Encounter Summary ---
Author Organization [facility] Address [address] [place] [address] Care Team Providers Care Staff Technologist Name Role Phone Yessica Saenz MD Primary Care Provider +1- [phone] Yessica Saenz MD Primary Care Provider +1- [phone] Rajinder Nicholson MD Primary Care Provider +1- [phone] Nova Brumfield MD Primary Care Provider Phyllis Horner MD Primary Care Provider Encounter Details Date Type Department Care Team (Late st Contact Info) Description 04/07/2016 [facility] Only [facility] ProviderCarmela MD [address] [place] [address] Social History Tobacco Use Types Packs/Day Years Used Date Smoking Tobacco: Never Alcohol Use Standard Drinks/Week Comments No 0 (1 standard drink = 0.6 oz pur e alcohol) Sex and Gender Information Value Date Recorded Sex Assigned at Not on file 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
--- OUTSIDE RECORDS SUMMARY | 2024-08-19 14:34 | XMS_ITS | Encounter Summary ---
Author Organization [facility] Address [address] [place] [address] Care Team Providers Care Assistant Credit Manager Name Role Phone Yessica Saenz MD Primary Care Provider +1- [phone] Rajinder Nicholson MD Primary Care Provider +1- [phone] Nova Brumfield MD Primary Care Provider Phyllis Horner MD Primary Care Provider Encounter Details Date Type Department Care Team (Late st Contact Info) Description 07/04/2016 Orders Only [facility] ProviderCarmela MD [address] [place] [address] Social History Tobacco Use Types Packs/Day Years Used Date Smoking Tobacco: Never Alcohol Use Standard Drinks/Week Comments No 0 (1 standard drink = 0.6 oz pur e alcohol) Sex and Gender Information Value Date Recorded Sex Assigned at Not on file 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
--- OUTSIDE RECORDS SUMMARY | 2024-08-19 14:35 | XMS_ITS | Referral Summary ---
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
--- OUTSIDE RECORDS SUMMARY | 2024-08-19 14:35 | XMS_ITS | Continuity of Care Document ---
Author Organization [facility] Address [address] [place] [address] Phone Care Team Providers Care Steam Clean Machine Operator Name Role Phone Abler Gunter MD Unavailable Unavailable Advance Directives Directive Yes / No Effective Date File Name No Information Encounters Encounter Description Practice Location Reason(s) For Visit Diagnoses Date Provider Providers Copied on Encounter [facility], [address], [place], [place], [id number], [place] tel:[phone] [facility] No Information [address] [facility] [address] [place], [place], [id number], [place]. tel:[phone] Family History Family Member Type Diagnosis Age [...]
--- OUTSIDE RECORDS SUMMARY | 2024-08-19 14:35 | XMS_ITS | Clinical Summary ---
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
--- OUTSIDE RECORDS SUMMARY | 2024-08-19 14:35 | XMS_ITS | Encounter Summary ---
Author Organization [facility] Address [address] [place] [address] Care Team Providers Care Photo Technician Name Role Phone Yessica Saenz MD Primary Care Provider +1- [phone] Yessica Saenz MD Primary Care Provider +1- [phone] Rajinder Nicholson MD Primary Care Provider +1- [phone] Nova Brumfield MD Primary Care Provider Phyllis Horner MD Primary Care Provider Encounter Details Date Type Department Care Team (Late st Contact Info) Description 05/23/2016 Orders Only [facility] ProviderCarmela MD [address] [place] [address] Social History Tobacco Use Types Packs/Day Years Used Date Smoking Tobacco: Never Alcohol Use Standard Drinks/Week Comments No 0 (1 standard drink = 0.6 oz pur e alcohol) Sex and Gender Information Value Date Recorded Sex Assigned at Not on file 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
--- OUTSIDE RECORDS SUMMARY | 2024-08-19 14:35 | XMS_ITS | Encounter Summary ---
Author Organization [facility] Address [address] [place] [address] Care Team Providers Care Suction Drum Drier Operator Name Role Phone Yessica Saenz MD Primary Care Provider +1- [phone] Yessica Saenz MD Primary Care Provider +1- [phone] Rajinder Nicholson MD Primary Care Provider +1- [phone] Nova Brumfield MD Primary Care Provider Phyllis Horner MD Primary Care Provider Encounter Details Date Type Department Care Team (Late st Contact Info) Description 02/25/2016 Orders Only [facility] ProviderCarmela MD [address] [place] [address] Social History Tobacco Use Types Packs/Day Years Used Date Smoking Tobacco: Never Alcohol Use Standard Drinks/Week Comments No 0 (1 standard drink = 0.6 oz pur e alcohol) Sex and Gender Information Value Date Recorded Sex Assigned at Not on file 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
== END 2024-08-19 13:20 | disposition home or self-care (01) ==
LOC: ANHGOSHLAB 13:20
PROVIDERS: PCP Family Medicine; Visit Provider Family Medicine
DX: N39.0 Urinary tract infection, site not specified (principal)
CPT/HCPCS: 87086

== ENCOUNTER 2024-10-04 14:38 | Outpatient (CLI) | payer OTHER, SELFPAY ==
--- NOTE | ~2024-10-04 | XR_ITS ---
MODIFIED ESOPHAGRAM HISTORY: Dysphagia. TECHNIQUE: Modified barium esophagram was performed by speech pathologist under radiologist fluorosco pic guidance. This was recorded on tape. The exam was reviewed on 10/04/2024 16:05 CDT. The DAP for this procedure was 1.3 Gycm2. Fluoroscopy time is 2.4 minutes. FINDINGS: Lateral projection of the cervical spine demonstrates age-appropriate degenerative diseas e. Penetration and aspiration. IMPRESSION: 1: Penetration and aspiration. 2: Please refer to speech pathologist report for additional detail. Reviewed, dictated and finalized at location A.
--- OUTSIDE RECORDS SUMMARY | 2024-10-04 14:42 | XMS_ITS | Referral Summary ---
Author Organization [facility] Address [address] [place] [address] Care Team Providers Care Drag Sawyer Name Role Phone Phyllis Horner MD Primary Care Provider Encounters Date Type Department Care Team Description 09/20/2024 2:00 PM CDT Office Visit [facility] Cardiology [address] [place] [address] Charito Lin NP Hypotension due to hypovolemia (Primary Dx) 09/12/2024 Telephone [facility] Cardiology [address] [place] [address] Josafat Pagan MD from Last 3 Months Allergies No known active allergies Medications guaiFENesin ER (MUCINEX) 600 mg 12 hr tablet Take 2 tablets (1,200 mg total) by mouth 2 (two) times a day Active bisacodyl EC (DULCOLAX EC) 5 mg EC tabletIndicatio ns:constipation Take 1 tablet (5 mg total) by mouth daily as needed for constipation Active hydrOXYzine (ATARAX) 25 mg tablet TAKE 1 TO 2 TABLETS BY MOUTH EVERY DAY AT BEDTIME NEEDED FOR INSOMNIA 08/03/19 25 Active ipratropium (ATROVENT) 42 mcg (0.06 %) nasal spray Administer 2 sprays into each nostril 4 (four) times a day Active tamsulosin (FLOMAX) 0.4 mg extended release capsule 1 capsule (0.4 mg total) Active traZODone (DESYREL) 50 mg tablet 07/01/20 25 Active oxyBUTYnin (DITROPAN) 5 mg tablet 5 MG ORALLY TWICE A DAY 08/27/19 25 Active midodrine (PROAMATINE) 5 mg tabletIndicatio ns:Hypotension due to hypovolemia Take 1 tablet (5 mg total) by mouth 3 (three) times a day 90 tablet 3 09/21/19 25 Active midodrine (PROAMATINE) 5 mg tablet 5 MG ORALLY THREE TIMES A DAY DO NOT GIVE LAST DOSE OF DAY AFTER 6PM OR WITHIN 4 HRS OF BEDTIME 08/01/19 25 025 Discontin ued(Reord er) Active Problems Problem Noted Date Diagnosed Date Hypotension due to hypovolemia 09/20/2024 Weight loss 06/12/2024 Dizziness 09/17/2020 Hyperlipidemia 11/10/2016 Status post placement of implantable loop record er 10/28/2016 Overview (10/28/2016): Past[employer]tronic Reveal Loop Recorder Dx; Syncope. DOI 03/20/2014. 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 Gender Identity Not on file Sexual Orientation Not on file Last Filed Vital Signs Vital Sign Reading Time Taken Comments Blood Pressure 78/46 09/20/2024 2:10 PM CDT Pulse 70 09/20/2024 2:10 PM CDT Temperature - - Respiratory Rate - - Oxygen Saturation 97% 09/20/2024 2:10 PM CDT Inhaled Oxygen Concentration - - Weight 52.4 kg (115 lb 8 oz) 09/20/2024 2:08 PM CDT Height 170.2 cm (5' 7) 09/20/2024 2:08 PM CDT Body Mass Index 18.09 09/20/2024 2:08 PM CDT Plan of Treatment Not on file Procedures Procedure Name Priority Date/Time Associated Diagnosis Comments ELECTROCARDIOGRAM REPORT Routine 025 2:54 PM CDT Hypotension due to hypovolemia from Last 3 Months Results * Electrocardiogram Report (09/20/2024 2:54 PM CDT) Charito Lin NP ECG ORDERABLES Final Result from Last 3 Months Insurance [employer] PPO [employer] CHOICE PPO Care Teams Drag Sawyer Relationship Specialty Start Date End Date Phyllis Horner MD PCP - General Family Practice 08/11/20
--- OUTSIDE RECORDS SUMMARY | 2024-10-04 14:42 | XMS_ITS | Encounter Summary ---
Author Organization [facility] Address [address] [place] [address] Care Team Providers Care Doctorate Of Chiropractic Name Role Phone Yessica Saenz MD Primary Care Provider +1- [phone] Yessica Saenz MD Primary Care Provider +1- [phone] Rajinder Nicholson MD Primary Care Provider +1- [phone] Nova Brumfield MD Primary Care Provider Phyllis Horner MD Primary Care Provider Encounter Details Date Type Department Care Team (Late st Contact Info) Description 05/23/2016 Orders Only [facility] ProviderCarmela MD [address] [place] [address] Social History Tobacco Use Types Packs/Day Years Used Date Smoking Tobacco: Never Alcohol Use Standard Drinks/Week Comments No 0 (1 standard drink = 0.6 oz pur e alcohol) Sex and Gender Information Value Date Recorded Sex Assigned at Not on file 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
--- OUTSIDE RECORDS SUMMARY | 2024-10-04 14:42 | XMS_ITS | Encounter Summary ---
Author Organization [facility] Address [address] [facility] [address] [place] [address] Care Team Providers Care Oracle Applications Analyst Name Role Phone Yessica Saenz MD Primary Care Provider +1- [phone] Yessica Saenz MD Primary Care Provider +1- [phone] Rajinder Nicholson MD Primary Care Provider +1- [phone] Nova Brumfield MD Primary Care Provider Phyllis Horner MD Primary Care Provider Encounter Details Date Type Department Care Team (Late st Contact Info) Description 04/07/2016 Orders Only [facility] ProviderCarmela MD [address] [place] [address] Social History Tobacco Use Types Packs/Day Years Used Date Smoking Tobacco: Never Alcohol Use Standard Drinks/Week Comments No 0 (1 standard drink = 0.6 oz pur e alcohol) Sex and Gender Information Value Date Recorded Sex Assigned at Not on file 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
--- OUTSIDE RECORDS SUMMARY | 2024-10-04 14:42 | XMS_ITS | Encounter Summary ---
Author Organization [facility] Address [address] [facility] [facility] [address] [place] [address] Care Team Providers Care Ore Trimmer Name Role Phone Yessica Saenz MD Primary Care Provider +1- [phone] Rajinder Nicholson MD Primary Care Provider +1- [phone] Nova Brumfield MD Primary Care Provider Phyllis Horner MD Primary Care Provider Encounter Details Date Type Department Care Team (Late st Contact Info) Description 07/04/2016 Orders Only [facility] ProviderCarmela MD [address] [place] [address] Social History Tobacco Use Types Packs/Day Years Used Date Smoking Tobacco: Never Alcohol Use Standard Drinks/Week Comments No 0 (1 standard drink = 0.6 oz pur e alcohol) Sex and Gender Information Value Date Recorded Sex Assigned at Not on file 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
--- OUTSIDE RECORDS SUMMARY | 2024-10-04 14:42 | XMS_ITS | Encounter Summary ---
Author Organization [facility] Address [address] [place] [address] Care Team Providers Care Bucket Operator Name Role Phone Yessica Saenz MD Primary Care Provider +1- [phone] Yessica Saenz MD Primary Care Provider +1- [phone] Rajinder Nicholson MD Primary Care Provider +1- [phone] Nova Brumfield MD Primary Care Provider Phyllis Horner MD Primary Care Provider Encounter Details Date Type Department Care Team (Late st Contact Info) Description 02/25/2016 Orders Only [facility] ProviderCarmela MD [address] [place] [address] Social History Tobacco Use Types Packs/Day Years Used Date Smoking Tobacco: Never Alcohol Use Standard Drinks/Week Comments No 0 (1 standard drink = 0.6 oz pur e alcohol) Sex and Gender Information Value Date Recorded Sex Assigned at Not on file 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
--- OUTSIDE RECORDS SUMMARY | 2024-10-04 14:42 | XMS_ITS | Clinical Summary ---
Author Organization [facility] Address [facility] [place] [address] Care Team Providers Care Blade Balancer Name Role Phone Phyllis Horner MD Primary [...] total) Active traZODone (DESYREL) 50 mg tablet 09/11/19 25 Active oxyBUTYnin (DITROPAN) 5 mg tablet [...] Description 09/20/2024 2:00 PM CDT Office Visit [facility] Medical [facility] Cardiology [address] [place] [address] Charito Lin NP Hypotension due to hypovolemia (Primary Dx) 09/12/2024 Telephone [facility] Cardiology [address] [place] [address] Josafat Pagan MD from Last 3 Months Medical History Medical [...] on file Legal Sex Male 7:56 PM [employer] Gender Identity Not on file Sexual Orientation [...] 09/20/2024 2:08 PM CDT Plan of Treatment Health Maintenance Due Date Last Done Comments Depression Screening 1940 Fall Risk Assessment 1940 Hepatitis B Screening 1958 Pneumococcal vaccine 65+ (1 of 1 - PCV) 1990 Zoster Vaccine (1 of 2) 1990 Well Visit 65+ 2005 Influenza Vaccine (#1) 2024 DTaP/Tdap/Td Vaccine (2 - Td or Tdap) 10/11/202803/2018 Procedures Procedure Name Priority Date/Time Associated Diagnosis Comments ELECTROCARDIOGRAM REPORT Routine 025 2:54 PM CDT Hypotension due to hypovolemia from Last 3 Months Results * Electrocardiogram Report (09/20/2024 2:54 PM CDT) Charito Lin NP ECG ORDERABLES Final Result from Last 3 Months Insurance [employer] CHOICE PPO Care Teams Blade Balancer Relationship Specialty Start Date End Date Phyllis Horner MD PCP - General Family Practice 08/11/20
--- OUTSIDE RECORDS SUMMARY | 2024-10-04 14:42 | XMS_ITS | Continuity of Care Document ---
Author Organization [facility] Address [address] [place] [address] Phone Care Team Providers Care Gyroscopic Instrument Tester Name Role Phone Alber Gunter MD Unavailable Unavailable Advance Directives Directive Yes / No Effective Date File Name No Information Encounters Encounter Description Practice Location Reason(s) For Visit Diagnoses Date Provider Providers Copied on Encounter [facility], [address], [place], [place], [id number], [place] tel:[phone] [facility] No Information [address] [facility] [address], [place], [place], [id number], [place]. tel:[phone] Family History Family Member Type Diagnosis Age [...]
--- NOTE | 2024-10-04 16:48 | REHSTMBS ---
Assessment and note entered by Yessica Coffey, LEAD RECREATION ASSISTANT Modified Barium Swallow Evaluation Subjective Information The patient is a 84 year old male referred for a repeat MBS Study. The patient was previously seen for an MBS study in June. Recommendations at that time were for the patient to become NPO and receive nutrition via alternate means due to severe pharyngeal dysphagia. Per the family reports the patient received speech therapy services following his discharge from the hospital and was initiated on PO eating. He has been consuming nutrition by mouth for approximately 2 months. Family reports his diet consists primarily of soft/puree foods and thin liquids. The MBS has been requested to determine if the patient is a candidate for g tube removal at this time. Feeding Type Recommended Non-Oral Treatment Recommendations Effortful Swallow,Laryngeal Elevation Exercise, Victor Hugo Maneuver,Shaker Exercise,Tongue Base Exercise ST Clinical Summary The patient is a 84 year old male referred for a repeat MBS Study. The patient was previously seen for an MBS study in June of 2024. Recommendations at that time were for the patient to become NPO and receive nutrition via alternate means due to severe pharyngeal dysphagia. Per the family reports the patient received speech therapy services following his discharge from the hospital and was initiated on PO eating. He has been consuming nutrition by mouth for approximately 2 months but still has his g tube in place. The family reports his diet consists primarily of soft /puree foods and thin liquids. The MBS has been requested to determine if the patient is a candidate for g tube removal at this time. The patient was positioned in the lateral view and presented the following consistencies: 5cc/tsp thin liquid, 5cc/tsp mildly thick liquid barium, and pudding mixed with barium paste. Oral Stage: Timely oral preparation and transit across consistencies. Pharyngeal stage: When presented 5cc/tsp thin liquid barium the patient was viewed to have mild silent aspiration during the swallow secondary to reduced laryngeal elevation and reduced laryngeal closure. 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 Moderate residual remained in the valleculae following the swallow due to reduced lingual pressure and reduced epiglottic inversion. Additional coated was viewed on the pharyngeal wall due to reduced pharyngeal contraction. The patient demonstrated difficulty following directives but was unable to clear residual with 2 multiple dry swallows when cued. Attempts to utilize a chin-tuck (flexed) posture and effortful were ineffective in reducing aspiration/ penetration risk as additional penetration was viewed with the chin tuck posture and significant residual remained after attempts to use a repeat/ effortful swallow. Additional laryngeal penetration was viewed with the trials of 5cc tsp mildly thick liquid barium and pudding mixed with barium paste due to reduced laryngeal elevation. Additional penetration was viewed after the swallows of mildly thick and pudding consistencies due to spillage from the residual remaining in the pyriform sinus. Again, chin-tuck use was not beneficial in eliminating the risk of penetration and following 2 repeat/effortful swallows moderate residual remained in the pyriform sinus. Recommendations 1. Strict NPO/ Continue g tube for nutritional needs. Given extensive prior speech services and current severe pharyngeal dysphagia unchanged since MBS in June 2024 it is unlikely additional treatment will improve current swallow function. Discussed in length results with patient and family. Family reports the patient has been eating for approximately 2 months without noted respiratory changes. They indicated they would still like consideration for g tube removal given that the patient has been consuming nutrition for the past 2 months by mouth.
== END 2024-10-04 14:39 | disposition home or self-care (01) ==
PROVIDERS: PCP Family Medicine; Visit Provider Family Medicine
DX: R93.3 Abnormal findings on diagnostic imaging of other parts of digestive tract (principal); R13.10 Dysphagia, unspecified; Z93.1 Gastrostomy status
CPT/HCPCS: 74230; 92611